=== PATIENT | female | born 1950 | race Caucasian/White ===

== ENCOUNTER 2016-09-25 19:51 | Inpatient (IN) | payer OTHER ==
[~2016-09-25] VITALS: Ht 160 cm; Wt 47.6 kg
[~2016-09-25 19:51] MED LIST: MULT-608 PO
[2016-09-25] MEDS ORDERED: LEVO50TA6 PO (20:28)
[2016-09-25] MEDS ORDERED: HYDR-3812 (20:28)
[2016-09-25] MEDS ORDERED: MIRT15TA6 PO (20:28)
[2016-09-25] MEDS ORDERED: OXYC-471 PO (20:28)
[2016-09-25] MEDS ORDERED: fentaNYL INJECTION 100 MCG/2 ML AMP IVP STA ×2 (20:56→22:24)
[2016-09-25 21:28] LABS: BASOPHILS % (AUTO) 0 % (0-10); EOSINOPHILS # (AUTO) 0.1 10^3/uL (0.0-0.3); EOSINOPHILS % (AUTO) 1 % (0-10); LYMPHOCYTES # (AUTO) 2.2 X 10^3 (1.0-4.0); LYMPHOCYTES % (AUTO) 21 % (12-44); MEAN CORPUSCULAR HEMOGLOBIN 29 PG (25-34); MEAN CORPUSCULAR HGB CONC 32 G/DL (32-36); MEAN CORPUSCULAR VOLUME 90 FL (80-99); MEAN PLATELET VOLUME 9.6 FL (7.4-10.4); MONOCYTES # (AUTO) 1.1 X 10^3 (0.0-1.0); MONOCYTES % (AUTO) 10 % (0-12); NEUTROPHILS # (AUTO) 7.2 X 10^3 (1.8-7.8); NEUTROPHILS % (AUTO) 68 % (42-75); PLATELET COUNT 459 10^3/uL (130-400); RED BLOOD COUNT 3.75 10^6/uL (4.35-5.85); RED CELL DISTRIBUTION WIDTH 13.7 % (10.0-14.5); WHITE BLOOD COUNT 10.6 10^3/uL (4.3-11.0)
[2016-09-25 21:38] LABS: INR 1.1 (0.8-1.4); PROTHROMBIN TIME PATIENT 13.9 SEC (12.2-14.7)
[2016-09-25 21:50] LABS: ALANINE AMINOTRANSFERASE 68 U/L (0-55); ALBUMIN 2.7 GM/DL (3.2-4.5); ANION GAP 12 MMOL/L (5-14); ASPARTATE AMINO TRANSFERASE 57 U/L (5-34); BILIRUBIN,TOTAL 0.2 MG/DL (0.1-1.0); BLOOD UREA NITROGEN 15 MG/DL (7-18); BUN/CREATININE RATIO 23 (0-20); CALCIUM 10.8 MG/DL (8.5-10.1); CARBON DIOXIDE 26 MMOL/L (21-32); CHLORIDE 94 MMOL/L (98-107); CREATININE SERUM 0.65 MG/DL (0.60-1.30); GFR ESTIMATED > 60; GLUCOSE 110 MG/DL (70-105); HEMOLYSIS 1 (-100-29); ICTERUS 0.1 (-100-1.9); LIPEMIA -1 (-100-49); POTASSIUM 3.5 MMOL/L (3.6-5.0); SODIUM 132 MMOL/L (135-145); TOTAL PROTEIN 6.2 GM/DL (6.4-8.2)
--- NOTE | 2016-09-25 22:00 | Diagnostic Imaging Report ---
Indication: Right upper extremity pain. Comparison: Chest radiograph performed concurrently. Technique: 2 views of the right humerus. Findings: There is a pathologic fracture in the mid right humerus due to a permeative lytic lesion. The fracture is oblique in nature and there is slight lateral angulation of the distal fracture fragment. There is an additional focal lytic lesion in the more distal humerus involving the cortex. There is no associated pathologic fracture at this lesion. Impression: 1. Mildly displaced pathologic fracture of the mid right humerus due to underlying destructive osseous lesion. This is likely due to a metastasis from probable lung cancer. Dictated by: Dictated on workstation # [id number]
--- NOTE | 2016-09-25 22:01 | Diagnostic Imaging Report ---
INDICATION: History of breast cancer with chest pain. COMPARISON: None available. FINDINGS: There is a large mass in the left upper lobe measuring 9.5 x 6.0 cm. Small left pleural effusion. No right focal airspace disease. No pneumothorax. Normal heart size. IMPRESSION: 1. Masslike consolidation left upper lobe measures up to 9.5 cm. This likely represents a primary lung cancer. 2. CT chest with contrast is advised for staging. Dictated by: Dictated on workstation # [id number]
[2016-09-25 23:19] VITALS: BP 112/61
[2016-09-25] MEDS ORDERED: ONDANSETRON 4 MG/2 ML (SDV) Z0FRAN IV PRN (23:30)
[2016-09-25] MEDS ORDERED: NS IV 500 ML PCA CARRIER FLUID IV SCH (23:30)
[2016-09-25] MEDS ORDERED: diphenhydrAMINE 50 MG/ML INJ (BENADRYL) IV PRN (23:30)
[2016-09-25] MEDS ORDERED: METOCLOPRAMIDE INJ 10 MG/2 ML (REGLAN) IV PRN (23:30)
[2016-09-25] MEDS ORDERED: NALOXONE 0.4 MG/ML 1 ML (NARCAN) VIAL IV PRN (23:30)
[2016-09-25] MEDS: fentaNYL PCA 300 MCG/30 ML VIAL IV PRN (23:44)
[2016-09-26] VITALS (18 sets, daily range): BP systolic 94–116; BP diastolic 45–72
--- NOTE | 2016-09-26 01:18 | ED General ---
General Chief Complaint: Upper Extremity Stated Complaint: METASTATIC CANCER,LT LUNG MASS Nursing Triage Note: RIGHT UPPER ARM PAIN PT REPORTS MASS IN RIGHT UPPER ARM DX AT [facility]. Nursing Sepsis Screen: No Definite Risk Source of Information: Patient (GIVES MINIMAL INFORMATION), Family (2 FEMALES IN ROOM DO ALL TALKING FOR PT) History of Present Illness Time Seen by Provider: 20:37 Initial Comments MULTITUDE OF COMPLAINTS--SOME ONGOING, SOME RECENT PT'S MAIN COMPLAINT IS RIGHT ARM PAIN AND SWELLING PT ACTUALLY STATES HER RIGHT UPPER ARM HAS BEEN HURTING FOR AT LEAST 6 MONTHS-- THOUGHT WAS JUST MUSCLE STRAIN FROM HER WORK HAS BECOME MUCH MORE PAINFUL THE LAST WEEK AND ON Sunday09/21/16, SHE WAS GETTING OUT OF THE SHOWER/TUB AND "FELT SOMETHING POP" IN HER ARM. SINCE THEN PAIN HAS BECOME SEVERE. WAS SEEN BY HER PCP, DR. Lindsay OSBORNE ON SUNDAY AND HAD XRAY OF HER ARM DONE AND WAS TOLD SHE HAD A "MASS" ON HER ARM. PT WAS GIVEN RX FOR HYDROCODONE--NO RELIEF OF PAIN. CALLED HER DR TODAY AND RX FOR OXYCODONE WAS CALLED IN--STILL NO RELIEF OF PAIN PT PLACED HERSELF IN A SLING DUE TO PAIN WHOLE RIGHT ARM HAS BEEN SWELLING IF SHE RAISES HER ARM, THE WHOLE ARM STARTS TO FEEL TINGLY, BUT OTHERWISE DOES NOT HAVE ANY PARESTHESIAS, AND DOES NOT HAVE ANY MOTOR DEFICITS, JUST CAN'T MOVE IT DUE TO SEVERE PAIN. FAMILY THEN GO ON TO LIST A MULTITUDE OF OTHER COMPLAINTS, THAT HAVE BEEN ONGOING FOR QUITE SOME TIME THEY ALSO STATE THAT PT WAS DX WITH PNEUMONIA 08/31/16--STATES COUGH IS CHRONIC BUT GETTING WORSE AND IS OCCASIONALLY PRODUCTIVE OF COLORED SPUTUM. HAS HAD INCREASING SHORTNESS OF BREATH. NO RECENT FEVER/SWEATS/CHILLS NO CHEST PAIN PT HAD BREAST CANCER, DX 6 YEARS AGO. HAD BILATERAL MASTECTOMY, CHEMO AND RADIATION. HAS NOT FOLLOWED UP WITH DR. ALCARAZ IN OVER 6 MONTHS PCP: FT. SULEMAN RICK ONCOLOGY: DR. ALCARAZ Allergies and Home Medications Allergies Coded Allergies: No Known Drug Allergies (Unverified , 10/05/09) Home Medications Hydrocodone/Acetaminophen 1 Each Tablet, #60 (Reported) Levothyroxine Sodium 50 Mcg Tablet, #30 (Reported) Mirtazapine 15 Mg Tablet, #30 (Reported) Multivitamins 1 Tab Tablet, 1 TAB PO DAILY, (Reported) Oxycodone HCl/Acetaminophen 1 Each Tablet, #180 (Reported) Constitutional: No chills, No diaphoresis, dizziness, malaise, weakness, weight loss (UNKNOWN AMOUNT OVER UNKNOWN LENGTH OF TIME. ) EENTM: no symptoms reported Respiratory: see HPI, cough, dyspnea on exertion Cardiovascular: no symptoms reported, No chest pain, No edema, No palpitations , No syncope, No vascular heart diseas Gastrointestinal: No abdominal pain, constipation (NO BM FOR "A LONG TIME" ), No diarrhea, loss of appetite, No nausea, No vomiting Genitourinary: no symptoms reported Musculoskeletal: see HPI, back pain, other (RIGHT ARM PAIN AND SWELLING) Psychiatric/Neurological: See HPI, Denies Headache, Other ("NOT HERSELF MENTALLY") Hematologic/Lymphatic: No Symptoms Reported Immunological/Allergic: no symptoms reported Past Qnutrbr-Tpwecd-Flmvbn Hx Patient Social History Alcohol Use: Occasionally Uses (HISTORY OF DAILY USE--"3-4 BEERS A DAY", NOW ONLY "OCCASIONAL" USE. ) Recreational Drug Use: No Smoking Status: Current Everyday Smoker (SMOKED AT LEAST 1 PPD --CLAIMS SHE QUIT 2 MONTHS AGO, PER PT ON 09/25/16) Type Used: Cigarettes 2nd Hand Smoke Exposure: Yes Recent Foreign Travel: No Contact w/Someone Who Travel: No Recent Infectious Disease Expo: No Recent Hopitalizations: No Physical Abuse Screen: No Sexual Abuse: No Immunizations Up To Date Tetanus Booster (TDap): Unknown PED Vaccines UTD: No Seasonal Allergies Seasonal Allergies: No Surgeries HX Surgeries: Yes (BILATERAL MASTECTOMY; LEFT TOE REMOVAL) Surgeries: Appendectomy, Breast, Orthopedic Respiratory Hx Respiratory Disorders: Yes Respiratory Disorders: Pneumonia, COPD Cardiovascular Hx Cardiac Disorders: No Neurological Hx Neurological Disorders: No 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 System : No Hx 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 Disorders: No 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 Genitourinary Hx Genitourinary Disorders: No Gastrointestinal Hx Gastrointestinal Disorders: Yes Gastrointestinal Disorders: Gastroesophageal Reflux Musculoskeletal Hx Musculoskeletal Disorders: Yes (COMPRESSION FRACTURES) Musculoskeletal Disorders: Chronic Back Pain, Fractures Endocrine Hx Endocrine Disorders: Yes Endocrine Disorders: Hypothyroidsim HEENT HX ENT Disorders: Yes Cancer Hx Cancer: Yes (BREAST CANCER DX 2009--S/P BILATERAL MASTECTOMY, CHEMO AND RADIATION) Cancer: Breast Psychosocial Hx Psychiatric Problems: No Integumentary HX Skin/Integumentary Disorder: No Blood Transfusions Hx Blood Disorders: No Family Medical History Family Medial History: FH: brain cancer G8 BROTHER G8 SISTER FH: liver cancer G8 SISTER FH: lung cancer 19 FATHER 19 MOTHER G8 BROTHER FH: skin cancer Physical Exam Vital Signs Vital Sign - Last 12Hours 09/25/16 09/26/16 20:29 00:46 Temp 97.9 Pulse 110 Resp 20 B/P (MAP) 128/82 Pulse Ox 95 O2 Delivery Room Air O2 Flow Rate 2.00 Capillary Refill : Less Than 3 SecondsLess Than 3 Seconds General Appearance: No Apparent Distress, Chronically ill, Cachetic, Other ( REEKS OF CIGARETTES. ) Neck: Full Range of Motion, Normal Inspection, Non Tender, Supple Respiratory: No Accessory Muscle Use, No Respiratory Distress, Decreased Breath Sounds (ON LEFT) Cardiovascular: Regular Rate, Rhythm, No Murmur, Normal Peripheral Pulses Gastrointestinal: Non Tender, Soft Back: No CVA Tenderness, No Vertebral Tenderness Extremity: Other (SEVERE/MARKEDLY EXAGGERATED TENDERNESS TO ENTIRE RIGHT ARM, AND YELLS WITH PAIN WITH SLIGHTEST MOVEMENT OF ARM. HAS SWOLLEN/FIRM AREA TO MID RIGHT HUMERUS, WITH MODERATE SWELLING TO ARM DISTAL TO MID HUMERUS. --PT IS WEARING A SLING ON ARRIVAL WITH HAND IN DEPENDENT POSITION. RING TO RIGHT 5TH FINGER IS VERY TIGHT. FINGER HAS GOOD CAP REFILL. AND ALL EXTREMITIES WITH DISTAL MOTOR/SENSRORY/VASCULAR INTACT. ) Neurologic/Psychiatric: Alert, Oriented x3, No Motor/Sensory Deficits, reservations specialist II- XII Norm as Tested, Other (FLAT AFFECT. ) Skin: Warm/Dry, Pallor Splinting and Joint Reduction : Arm Sling: Reliance Splint Application: Long Arm (RIGHT) Progress/Results/Core Measures Results/Orders Lab Results Laboratory Tests Test 09/25/16 21:15 Range/Units White Blood Count 10.6 4.3-11.0 10^3/uL Red Blood Count 3.75 L 4.35-5.85 10^6/uL Hemoglobin 10.9 L 11.5-16.0 G/DL Hematocrit 34 L 35-52 % Mean Corpuscular Volume 90 80-99 FL Mean Corpuscular Hemoglobin 29 25-34 PG Mean Corpuscular Hemoglobin Concent 32 32-36 G/DL Red Cell Distribution Width 13.7 10.0-14.5 % Platelet Count 459 H 130-400 10^3/uL Mean Platelet Volume 9.6 7.4-10.4 FL Neutrophils (%) (Auto) 68 42-75 % Lymphocytes (%) (Auto) 21 12-44 % Monocytes (%) (Auto) 10 0-12 % Eosinophils (%) (Auto) 1 0-10 % Basophils (%) (Auto) 0 0-10 % Neutrophils # (Auto) 7.2 1.8-7.8 X 10^3 Lymphocytes # (Auto) 2.2 1.0-4.0 X 10^3 Monocytes # (Auto) 1.1 H 0.0-1.0 X 10^3 Eosinophils # (Auto) 0.1 0.0-0.3 10^3/uL Basophils # (Auto) 0.0 0.0-0.1 10^3/uL Prothrombin Time 13.9 12.2-14.7 SEC INR Comment 1.1 0.8-1.4 Activated Partial Thromboplast Time 29 24-35 SEC Sodium Level 132 L 135-145 MMOL/L Potassium Level 3.5 L 3.6-5.0 MMOL/L Chloride Level 94 L 98-107 MMOL/L Carbon Dioxide Level 26 21-32 MMOL/L Anion Gap 12 5-14 MMOL/L Blood Urea Nitrogen 15 7-18 MG/DL Creatinine 0.65 0.60-1.30 MG/DL Estimat Glomerular Filtration Rate > 60 BUN/Creatinine Ratio 23 H 0-20 Glucose Level 110 H 70-105 MG/DL Calcium Level 10.8 H 8.5-10.1 MG/DL Total Bilirubin 0.2 0.1-1.0 MG/DL Aspartate Amino Transf (AST/SGOT) 57 H 5-34 U/L Alanine Aminotransferase (ALT/SGPT) 68 H 0-55 U/L Alkaline Phosphatase 148 H 40-136 U/L Total Protein 6.2 L 6.4-8.2 GM/DL Albumin 2.7 L 3.2-4.5 GM/DL My Orders Orders - ANGELA HURLEY DO Saline Lock/Iv-Start (09/25/16 20:56) Cbc With Automated Diff (09/25/16 20:56) Comprehensive Metabolic Panel (09/25/16 20:56) Protime With Inr (09/25/16 20:56) Partial Thromboplastin Time (09/25/16 20:56) Chest Pa/Lat (2 View) (09/25/16 20:56) Humerus, Right, 2 Views (09/25/16 20:56) Fentanyl Injection (Sublimaze Injection (09/25/16 20:56) Fentanyl Injection (Sublimaze Injection (09/25/16 22:24) Splint Application Long Arm (09/25/16 22:24) Sling (09/25/16 22:24) Vital Signs/I&O Vital Sign - Last 12Hours 09/25/16 09/25/16 09/25/16 09/25/16 20:29 21:48 22:56 23:19 Temp 97.9 98.1 97.0 Pulse 110 90 91 93 Resp 20 18 18 20 B/P (MAP) 128/82 122/84 112/61 Pulse Ox 95 97 98 92 O2 Delivery Room Air Room Air Room Air Room Air 09/26/16 09/26/16 00:46 01:03 Pulse Ox 94 O2 Delivery Nasal Cannula O2 Flow Rate 2.00 Blood Pressure Mean: 78 Progress Note : Progress Note PAIN EASED WITH FENTANYL Diagnostic Imaging Comments CXR--LARGE [place] MASS--CONSISTENT WITH PRIMARY LUNG CANCER XRAYS RIGHT HUMERUS--PATHOLOGICAL FRACTURE WITH LYTIC LESIONS TO BONE PER RADIOLOGIST REPORTS @ 2200 Reviewed: Reviewed by Me Departure Communication Family Conversation LENGTHY DISCUSSION WITH PATIENT AND FAMILY, REGARDING DX, PAIN CONTROL, NEED FOR ADDITIONAL TESTING, POOR PROGNOSIS. Progress Notes 2214--SPOKE WITH DR. ALCARAZ, ACCEPTS PT FOR ADMIT. WANTS MULTIPLE CONSULTS-WILL NOTIFY IN AM. 2219--SPOKE WITH DR. NEGRETE ORTHO SALON DESIGNER. HE ADVISES LONG ARM SPLINT AND HE WILL FOLLOW PT IN HOSPITAL. Impression Impression: Primary Impression: Metastatic cancer Additional Impressions: PATHOLOGICAL FRACTURE RIGHT HUMERUS Bone metastasis LEFT LUNG MASS--LIKELY A NEW PRIMARY CANCER Electrolyte imbalance Elevated liver enzymes Disposition: ADMITTED INPATIENT Condition: Improved Departure-Patient Inst. Referrals: BIA OSBORNE MD (PCP) Primary Care Physician ANGELA HURLEY DO Sep 26, 2016 01:18
[2016-09-26] MEDS ORDERED: RT-ALBUTEROL/IPRATROPIUM 3 ML (DUONEB) VIAL INH PRN (02:00)
[2016-09-26 06:12] LABS: BASOPHILS % (AUTO) 0 % (0-10); EOSINOPHILS # (AUTO) 0.1 10^3/uL (0.0-0.3); EOSINOPHILS % (AUTO) 1 % (0-10); LYMPHOCYTES # (AUTO) 1.9 X 10^3 (1.0-4.0); LYMPHOCYTES % (AUTO) 16 % (12-44); MEAN CORPUSCULAR HEMOGLOBIN 29 PG (25-34); MEAN CORPUSCULAR HGB CONC 32 G/DL (32-36); MEAN CORPUSCULAR VOLUME 91 FL (80-99); MEAN PLATELET VOLUME 9.6 FL (7.4-10.4); MONOCYTES # (AUTO) 1.2 X 10^3 (0.0-1.0); MONOCYTES % (AUTO) 10 % (0-12); NEUTROPHILS # (AUTO) 8.4 X 10^3 (1.8-7.8); NEUTROPHILS % (AUTO) 72 % (42-75); PLATELET COUNT 357 10^3/uL (130-400); RED CELL DISTRIBUTION WIDTH 13.6 % (10.0-14.5); WHITE BLOOD COUNT 11.6 10^3/uL (4.3-11.0)
[2016-09-26 06:36] LABS: ALANINE AMINOTRANSFERASE 52 U/L (0-55); ALBUMIN 2.4 GM/DL (3.2-4.5); ANION GAP 11 MMOL/L (5-14); ASPARTATE AMINO TRANSFERASE 40 U/L (5-34); BILIRUBIN,TOTAL 0.3 MG/DL (0.1-1.0); BLOOD UREA NITROGEN 11 MG/DL (7-18); BUN/CREATININE RATIO 20 (0-20); CALCIUM 10.5 MG/DL (8.5-10.1); CARBON DIOXIDE 23 MMOL/L (21-32); CHLORIDE 98 MMOL/L (98-107); CREATININE SERUM 0.54 MG/DL (0.60-1.30); GFR ESTIMATED > 60; GLUCOSE 93 MG/DL (70-105); HEMOLYSIS 9 (-100-29); ICTERUS 0.2 (-100-1.9); LIPEMIA -3 (-100-49); POTASSIUM 3.5 MMOL/L (3.6-5.0); SODIUM 132 MMOL/L (135-145); TOTAL PROTEIN 5.3 GM/DL (6.4-8.2)
[2016-09-26] MEDS: RT-ALBUTEROL/IPRATROPIUM 3 ML (DUONEB) VIAL INH SCH ×4 (07:05→19:51)
[2016-09-26] MEDS: SENNA W/DOCUSATE (SENOKOT S) TABLET PO SCH (09:04)
--- OUTSIDE RECORDS SUMMARY | 2016-09-26 09:32 | XMS REPORT | Continuity of Care Document ---
Author Author [facility] Organization [facility] Address Unknown Phone Unavailable Allergies Active Description Code Type Severity Reaction Onset Reported/Identified Relationship to Patient Clinical Status Yes No Known Drug Allergies [id number] Drug Allergy Unknown N/ A 10/05/2009 Medications Problems Date Dx Coded Attending Type Code Diagnosis Diagnosed By 10/16/2010 Ot 174.9 MALIGN NEOPL BREAST NOS 02/01/2011 Ot 174.9 MALIGN NEOPL BREAST NOS 02/01/2011 Ot 305.01 ALCOHOL ABUSE-CONTINUOUS 02/01/2011 Ot 305.1 TOBACCO USE DISORDER 02/01/2011 Ot 790.5 ABN SERUM ENZY LEVEL NEC 02/01/2011 Ot V45.71 ACQUIRED ABSENCE OF BREAST AND NIPPLE 02/01/2011 Ot V58.69 OTH MED,LT,CURRENT USE 02/01/2011 Ot V86.0 ESTROGEN RECEPTOR POSITIVE STATUS [ER+] 06/07/2011 Ot 174.9 MALIGN NEOPL BREAST NOS 06/07/2011 Ot 305.01 ALCOHOL ABUSE-CONTINUOUS 06/07/2011 Ot 305.1 TOBACCO USE DISORDER 06/07/2011 Ot 790.5 ABN SERUM ENZY LEVEL NEC 06/07/2011 Ot V45.71 ACQUIRED ABSENCE OF BREAST AND NIPPLE 06/07/2011 Ot V58.69 OTH MED,LT,CURRENT USE 06/07/2011 Ot V86.0 ESTROGEN RECEPTOR POSITIVE STATUS [ER+] 09/06/2011 Ot 174.9 MALIGN NEOPL BREAST NOS 09/06/2011 Ot 305.01 ALCOHOL ABUSE-CONTINUOUS 09/06/2011 Ot 305.1 TOBACCO USE DISORDER 09/06/2011 Ot 790.5 ABN SERUM ENZY LEVEL NEC 09/06/2011 Ot V45.71 ACQUIRED ABSENCE OF BREAST AND NIPPLE 09/06/2011 Ot V58.69 OTH MED,LT,CURRENT USE 09/06/2011 Ot V86.0 ESTROGEN RECEPTOR POSITIVE STATUS [ER+] 02/16/2014 HANDY ALCARAZ MD Ot 174.9 02/16/2014 HANDY ALCARAZ MD Ot 305.1 02/16/2014 LISSA REAGAN, HANDY Nava Ot 443.9 02/16/2014 LISSA REAGAN, HANDY Nava Ot 790.5 02/16/2014 LISSA REAGAN, HANDY Nava Ot V15.3 02/16/2014 LISSA REAGAN, HANDY Nava Ot V45.71 02/16/2014 LISSA REAGAN, HANDY Nava Ot V58.69 02/16/2014 LISSA REAGAN, HANDY Nava Ot V86.0 02/16/2014 LISSA REAGAN, HANDY Nava Ot V87.41 03/02/2015 LISSA REAGAN, HANDY Nava Ot C50.912 03/02/2015 LISSA REAGAN, HANDY Nava Ot F10.21 03/02/2015 LISSA REAGAN, HANDY Nava Ot F17.210 03/02/2015 LISSA REAGAN, HANDY Nava Ot I73.9 03/02/2015 LISSA REAGAN, HANDY Nava Ot M19.90 03/02/2015 LISSA REAGAN, HANDY Nava Ot Z17.0 03/02/2015 HANDY ALCARAZ MD Ot Z79.811 03/02/2015 HANDY ALCARAZ MD Ot Z90.12 03/02/2015 HANDY ALCARAZ MD Ot Z92.21 03/02/2015 LISSA REAGAN, HANDY Nava Ot Z92.3 08/11/2015 HANDY ALCARAZ MD Ot 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 08/11/2015 LISSA REAGAN, HANDY Nava Ot F17.210 NICOTINE DEPENDENCE, CIGARETTES, UNCOMPL 08/11/2015 HANDY ALCARAZ MD Ot J44.9 CHRONIC OBSTRUCTIVE PULMONARY DISEASE, U 08/11/2015 LISSA REAGAN, HANDY Nava Ot M19.90 UNSPECIFIED OSTEOARTHRITIS, UNSPECIFIED 08/11/2015 HANDY ALCARAZ MD Ot Z17.0 ESTROGEN RECEPTOR POSITIVE STATUS [ER+] 08/11/2015 HANDY ALCARAZ MD Ot 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 08/11/2015 HANDY ALCARAZ MD Ot Z80.41 FAMILY HISTORY OF MALIGNANT NEOPLASM OF 08/11/2015 HANDY ALCARAZ MD Ot 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 01/13/2016 HANDY ALCARAZ MD Ot 174.9 MALIGN NEOPL BREAST NOS 01/13/2016 HANDY ALCARAZ MD Ot 305.1 TOBACCO USE DISORDER 01/13/2016 HANDY ALCARAZ MD Ot 443.9 PERIPH VASCULAR DIS NOS 01/13/2016 LISSA REAGAN HANDY Brandy Ot 790.5 ABN SERUM ENZY LEVEL NEC 01/13/2016 LISSA REAGAN HANDY Brandy Ot V15.3 HX OF IRRADIATION 01/13/2016 LISSA REAGAN HANDY Brandy Ot V45.71 ACQUIRED ABSENCE OF BREAST AND NIPPLE 01/13/2016 LISSA REAGAN HANDY Brandy Ot V58.69 OTH MED,LT,CURRENT USE 01/13/2016 LISSA REAGAN HANDY Brandy Ot V86.0 ESTROGEN RECEPTOR POSITIVE STATUS [ER+] 01/13/2016 LISSA REAGAN HANDY Brandy Ot V87.41 PERSONAL HISTORY OF ANTINEOPLASTIC CHEMO 01/13/2016 Ot 174.9 MALIGN NEOPL BREAST NOS 01/13/2016 Ot 174.9 MALIGN NEOPL BREAST NOS 01/13/2016 Ot 305.01 ALCOHOL ABUSE-CONTINUOUS 01/13/2016 Ot 305.1 TOBACCO USE DISORDER 01/13/2016 Ot 790.5 ABN SERUM ENZY LEVEL NEC 01/13/2016 Ot V45.71 ACQUIRED ABSENCE OF BREAST AND NIPPLE 01/13/2016 Ot V58.69 OTH MED,LT,CURRENT USE 01/13/2016 Ot V86.0 ESTROGEN RECEPTOR POSITIVE STATUS [ER+] 01/13/2016 Ot 174.9 MALIGN NEOPL BREAST NOS 01/13/2016 Ot 305.1 TOBACCO USE DISORDER 01/13/2016 Ot 443.9 PERIPH VASCULAR DIS NOS 01/13/2016 Ot 729.5 PAIN IN LIMB 01/13/2016 Ot 790.5 ABN SERUM ENZY LEVEL NEC 01/13/2016 Ot V45.71 ACQUIRED ABSENCE OF BREAST AND NIPPLE 01/13/2016 Ot V58.69 OTH MED,LT,CURRENT USE 01/13/2016 Ot V86.0 ESTROGEN RECEPTOR POSITIVE STATUS [ER+] 01/13/2016 Ot 174.9 MALIGN NEOPL BREAST NOS 01/13/2016 Ot 305.01 ALCOHOL ABUSE-CONTINUOUS 01/13/2016 Ot 305.1 TOBACCO USE DISORDER 01/13/2016 Ot 443.9 PERIPH VASCULAR DIS NOS 01/13/2016 Ot 790.5 ABN SERUM ENZY LEVEL NEC 01/13/2016 Ot V45.71 ACQUIRED ABSENCE OF BREAST AND NIPPLE 01/13/2016 Ot V58.69 OTH MED,LT,CURRENT USE 01/13/2016 Ot V86.0 ESTROGEN RECEPTOR POSITIVE STATUS [ER+] 01/13/2016 HANDY ALCARAZ MD Ot 174.9 MALIGN NEOPL BREAST NOS 01/13/2016 HANDY ALCARAZ MD Ot 305.1 TOBACCO USE DISORDER 01/13/2016 HANDY ALCARAZ MD Ot 443.9 PERIPH VASCULAR DIS NOS 01/13/2016 HANDY ALCARAZ MD Ot 790.5 ABN SERUM ENZY LEVEL NEC 01/13/2016 HANDY ALCARAZ MD Ot V15.3 HX OF IRRADIATION 01/13/2016 HANDY ALCARAZ MD Ot V45.71 ACQUIRED ABSENCE OF BREAST AND NIPPLE 01/13/2016 HANDY ALCARAZ MD, Ot V58.69 OTH MED,LT,CURRENT USE 01/13/2016 HANDY ALCARAZ MD Ot V86.0 ESTROGEN RECEPTOR POSITIVE STATUS [ER+] 01/13/2016 HANDY ALCARAZ MD Ot V87.41 PERSONAL HISTORY OF ANTINEOPLASTIC CHEMO 01/13/2016 HANDY ALCARAZ MD Ot 174.9 MALIGN NEOPL BREAST NOS 01/13/2016 HANDY ALCARAZ MD Ot 305.01 ALCOHOL ABUSE-CONTINUOUS 01/13/2016 HANDY ALCARAZ MD Ot 305.1 TOBACCO USE DISORDER 01/13/2016 HANDY ALCARAZ MD Ot 443.9 PERIPH VASCULAR DIS NOS 01/13/2016 HANDY ALCARAZ MD Ot 729.5 PAIN IN LIMB 01/13/2016 HANDY ALCARAZ MD Ot 790.5 ABN SERUM ENZY LEVEL NEC 01/13/2016 HANDY ALCARAZ MD Ot V15.3 HX OF IRRADIATION 01/13/2016 HANDY ALCARAZ MD Ot V45.71 ACQUIRED ABSENCE OF BREAST AND NIPPLE 01/13/2016 HANDY ALCARAZ MD, Ot V58.69 OTH MED,LT,CURRENT USE 01/13/2016 HANDY ALCARAZ MD Ot V86.0 ESTROGEN RECEPTOR POSITIVE STATUS [ER+] 01/13/2016 HANDY ALCARAZ MD Ot V87.41 PERSONAL HISTORY OF ANTINEOPLASTIC CHEMO 01/13/2016 HANDY ALCARAZ MD Ot 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 01/13/2016 HANDY ALCARAZ MD Ot F10.21 ALCOHOL DEPENDENCE, IN REMISSION 01/13/2016 HANDY ALCARAZ MD Ot F17.210 NICOTINE DEPENDENCE, CIGARETTES, UNCOMPL 01/13/2016 HANDY ALCARAZ MD Ot I73.9 PERIPHERAL VASCULAR DISEASE, UNSPECIFIED 01/13/2016 HANDY ALCARAZ MD Ot M19.90 UNSPECIFIED OSTEOARTHRITIS, UNSPECIFIED 01/13/2016 HANDY ALCARAZ MD, Ot Z17.0 ESTROGEN RECEPTOR POSITIVE STATUS [ER+] 01/13/2016 HANDY ALCARAZ MD, Ot Z79.811 GROUP HOME (CURRENT) USE OF AROMATASE INH 01/13/2016 HANDY ALCARAZ MD, Ot Z90.12 ACQUIRED ABSENCE OF LEFT BREAST AND NIPP 01/13/2016 HANDY ALCARAZ MD, Ot Z92.21 PERSONAL HISTORY OF ANTINEOPLASTIC CHEMO 01/13/2016 HANDY ALCARAZ MD, Ot Z92.3 PERSONAL HISTORY OF IRRADIATION 01/13/2016 HANDY ALCARAZ MD, Ot 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 01/13/2016 HANDY ALCARAZ MD, Ot F17.210 NICOTINE DEPENDENCE, CIGARETTES, UNCOMPL 01/13/2016 HANDY ALCARAZ MD, Ot J44.9 CHRONIC OBSTRUCTIVE PULMONARY DISEASE, U 01/13/2016 HANDY ALCARAZ MD, Ot M19.90 UNSPECIFIED OSTEOARTHRITIS, UNSPECIFIED 01/13/2016 HANDY ALCARAZ MD, Ot Z17.0 ESTROGEN RECEPTOR POSITIVE STATUS [ER+] 01/13/2016 HANDY ALCARAZ MD, Ot 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 01/13/2016 HANDY ALCARAZ MD, Ot Z80.41 FAMILY HISTORY OF MALIGNANT NEOPLASM OF 01/13/2016 HANDY ALCARAZ MD, Ot 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 01/14/2016 HANDY ALCARAZ MD, Ot 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 Visit Date/Time Discharge Status Pt. Type Provider Facility Loc./Unit Complaint [id number] 01/26/2015 15:05:00 2014 23:59:59 CLS Outpatient HANDY ALCARAZ MD [facility] ONC [id number] 01/20/2014 15:20:00 2013 23:59:59 HANDY Noguera MD [facility] ONC [id number] 07/22/2013 15:02:00 2013 23:59:59 HANDY Noguera MD [facility] ONC [id number] 01/21/2013 14:49:00 2012 23:59:59 HANDY Noguera MD [facility] ONC [id number] 01/13/2016 15:00:00 HANDY Lopez MD [facility] ONC [id number] 01/13/2016 15:00:00 Document Registration [id number] 07/15/2015 14:26:00 HANDY Lopez MD [facility] ONC [id number] 07/04/2012 14:57:00 Document Registration [id number] 03/07/2012 14:54:00 Document Registration [id number] 10/12/2011 13:32:00 Document Registration [id number] 06/08/2011 15:01:00 Document Registration [id number] 03/09/2011 14:43:00 Document Registration [id number] 01/05/2011 13:17:00 Document Registration [id number] 08/04/2010 14:45:00 Document Registration [id number] 07/28/2010 16:26:00 Document Registration
--- OUTSIDE RECORDS SUMMARY | 2016-09-26 09:41 | XMS REPORT | Continuity of Care Document ---
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 Visit Date/Time Discharge Status Pt. Type Provider Facility Loc./Unit Complaint [id number] 01/26/2015 15:05:00 2014 23:59:59 CLS Outpatient HANDY ALCARAZ MD [facility] ONC [id number] 01/20/2014 15:20:00 2013 23:59:59 HANDY Noguera MD [facility] ONC [id number] 07/22/2013 15:02:00 2013 23:59:59 HANDY Noguera MD [facility] ONC [id number] 01/21/2013 14:49:00 2012 23:59:59 HANDY Noguera MD [facility] ONC [id number] 01/13/2016 15:00:00 HANDY Lopez MD [facility] ONC [id number] 01/13/2016 15:00:00 Document Registration [id number] 07/15/2015 14:26:00 HANDY Lopez MD [facility] ONC [id number] 07/04/2012 14:57:00 Document Registration [id number] 03/07/2012 14:54:00 Document Registration [id number] 10/12/2011 13:32:00 Document Registration [id number] 06/08/2011 15:01:00 Document Registration [id number] 03/09/2011 14:43:00 Document Registration [id number] 01/05/2011 13:17:00 Document Registration [id number] 08/04/2010 14:45:00 Document Registration [id number] 07/28/2010 16:26:00 Document Registration
[2016-09-26] MEDS ORDERED: fentaNYL INJECTION 100 MCG/2 ML AMP IVP PRN (10:00)
[2016-09-26] MEDS ORDERED: MILK OF MAGNESIA 400 MG/5 ML 30 ML UDC PO PRN (10:00)
[2016-09-26] MEDS ORDERED: LIDOCAINE 1% INJ 20 ML (XYLOCAINE) VIAL INJ ONE (10:00)
[2016-09-26] MEDS ORDERED: BISACODYL 10 MG SUPP (DULCOLAX) PR PRN (10:00)
[2016-09-26] MEDS ORDERED: NS 100 ML (IVPB) BAG IV ONE (10:30)
[2016-09-26] MEDS ORDERED: CATHETER FLUSH 10 ML SYR IV PRN (10:30)
[2016-09-26] MEDS ORDERED: IOHEXOL 350 MG/ML 100 ML (OMNIPAQUE 350) VIAL IV ONE (10:30)
--- NOTE | 2016-09-26 12:00 | Pre-Procedure Progress Note ---
Pre-Procedure Progress Note H&P Reviewed The H&P was reviewed, patient examined and no changes noted. Date H&P Reviewed: Sep 26, 2016 Time H&P Reviewed: 10:30 Pre-Procedure Diagnosis: lung mass CT biopsy to be performed. BESS KAUFFMAN MD Sep 26, 2016 12:00
[2016-09-26] MEDS: NS IV 1000 ML 1,000 ML IV SCH ×4 (12:16→22:15)
--- NOTE | 2016-09-26 12:24 | Diagnostic Imaging Report ---
PROCEDURE: CT chest and abdomen with and without contrast TECHNIQUE: Multiple axial CT images through the thorax and abdomen were obtained with and without intravenous contrast. INDICATION: Lung mass. History of breast cancer status post bilateral mastectomy. 100 mL of Omnipaque 350 is administered intravenously. FINDINGS: CT chest: In the left upper lobe, there is a large heterogeneous area of consolidation measuring 6.9 x 5.7 x 8.3 cm. This is obliterating the left upper lobe bronchus, and the left upper lobe pulmonary artery and artery to the lingula are encased by this lesion with suspected component of atelectasis or pneumonia in the left upper lobe along the periphery of this mass. Remaining portions of the left upper lobe anteriorly and in the apex as well as the inferior lingula are still aerated. There is a [id number] left pleural effusion with mild adjacent atelectasis. The lungs demonstrate background advanced emphysema, worse in the upper lobes. There is minimal atelectasis in the right lung base. There are no other pulmonary masses or suspicious nodules seen. The left upper lobe mass is inseparable from the left hilar structures, and another hilar node measuring 1.6 cm is seen. There are also subaortic and other mediastinal nodes such as right paratracheal node measuring 3.4 x 1.6 cm and prevascular superior mediastinal node measuring 2.1 x 2.9 cm and contralateral hilar lymph node measuring 1.9 cm on the right side. Infracarinal lymph node measuring 1.4 cm is also seen. The heart size is normal. The thoracic aorta is normal in caliber. No dissection. The osseous structures demonstrate a compression fracture of T11 vertebral body of indeterminate age. No destructive osseous mass is identified in the thoracic spine or ribs. CT abdomen: The liver, the gallbladder, the spleen, the adrenal glands, and the pancreas appear unremarkable. The kidneys have symmetric enhancement and contrast excretion. No hydronephrosis. There are nonobstructive stones in the kidneys up to 3 mm in size near the renal pelvis. The abdominal aorta is normal in caliber. No para-aortic significantly enlarged lymph node is seen. The osseous structures appear grossly unremarkable. IMPRESSION: CT chest: 1. There is an 8.3 cm heterogeneous mass-like consolidation in the left upper lobe suggestive of an underlying neoplasm. There is associated lymphadenopathy in the luh and in the mediastinum. 2. Jehck-qp-mzqlsdld left pleural effusion. 3. Advanced emphysema. 4. Compression fracture of T11 vertebral body of indeterminate age. No definite underlying mass. CT abdomen: No evidence of metastasis. Dictated by: Dictated on workstation # [id number]
--- NOTE | 2016-09-26 13:34 | History & Physicial ---
History of Present Illness History of Present Illness Reason for visit/HPI This is a 65-year-old lady with known history of breast cancer who is admitted via the emergency department with complaints of right upper extremity pain. Right arm x-ray done in the emergency department shows pathologic fracture mildly displaced. Chest x-ray should also shows large left upper lobe mass highly suggestive of a second primary lung cancer versus metastasis. Patient also describes worsening back pain since Day (one month duration) that radiates down her right lower extremity. No fever chills or night sweats are reported but patient has had dark malodorous urine for the last 3 to 4 days. Past history is remarkable for: 1. Stage IIIB (T4C involving skin and chest wall, N+,M0) left breast cancer, ER positive, [place] positive, HER-2/susie negative, diagnosed August 2009. Induction chemotherapy given prior to local surgery. 2. Former history chronic excessive alcohol intake. 3. History of chronic tobaccoism. Had smoked at least one pack per day for 32 years prior to stopping 2 months ago. PRIOR THERAPY: 1. Status post four cycles of dose dense Adriamycin and cyclophosphamide followed by four cycles of paclitaxel. 2. Status post bilateral mastectomy, left modified radical mastectomy and right simple mastectomy on 02/15/10. 3. Local radiation left chest wall and regional lymphatics, 6040 cGy, completed 06/09/10. 4. Aromasin 25 mg daily is ongoing. Aromasin was initiated on 07/07/10 and completed 07/16/15. (Patient was offered extended hormonal therapy at her last visit in Jan 2016 but did not want to continue hormonal therapy.) Date of Admission Sep 25, 2016 at 22:15 Time Seen by Provider: 12:15 I consulted on this patient on 09/26/16 13:32 Attending Physician Handy Alcaraz MD Admitting Physician Jacqueline Mendieta MD Consult Allergies and Home Medications Allergies Coded Allergies: No Known Drug Allergies (Unverified , 10/05/09) Home Medications Levothyroxine Sodium 50 Mcg Tablet, 50 MCG PO DAILY, (Reported) Mirtazapine 15 Mg Tablet, 15 MG PO HS, (Reported) Multivitamins 1 Tab Tablet, 1 TAB PO DAILY, (Reported) Oxycodone HCl/Acetaminophen 1 Each Tablet, 1 TAB PO Q4H PRN for PAIN-MODERATE, ( Reported) Past Kmnbuhr-Sikvtl-Alyjwl Hx Patient Social History Alcohol Use: Occasionally Uses (HISTORY OF DAILY USE--"3-4 BEERS A DAY", NOW ONLY "OCCASIONAL" USE. ) Recreational Drug Use: No Smoking Status: Current Everyday Smoker (SMOKED AT LEAST 1 PPD --CLAIMS SHE QUIT 2 MONTHS AGO, PER PT ON 09/25/16) Type Used: Cigarettes 2nd Hand Smoke Exposure: Yes Physical Abuse Screen: No Sexual Abuse: No Recent Foreign Travel: No Contact w/other who traveled: No Recent Hopitalizations: No Recent Infectious Disease Expo: No Immunizations Up To Date Tetanus Booster (TDap): Unknown Seasonal Allergies Seasonal Allergies: No Surgeries HX Surgeries: Yes (BILATERAL MASTECTOMY; LEFT TOE REMOVAL) Surgeries: Appendectomy, Breast, Orthopedic Respiratory Hx Respiratory Disorders: Yes Cardiovascular Hx Cardiovascular Disorders: No Neurological Hx Neurological Disorders: No 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 System : No Hx 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 Disorders: No Genitourinary Hx Genitourinary Disorders: No Gastrointestinal Hx Gastrointestinal Disorders: Yes Gastrointestinal Disorders: Gastroesophageal Reflux Musculoskeletal Hx Musculoskeletal Disorders: Yes (COMPRESSION FRACTURES) Musculoskeletal Disorders: Chronic Back Pain, Fractures Endocrine Hx Endocrine Disorders: Yes Endocrine Disorders: Hypothyroidsim HEENT HX ENT Disorders: Yes Cancer Hx Cancer: Yes (BREAST CANCER DX 2009--S/P BILATERAL MASTECTOMY, CHEMO AND RADIATION) Cancer: Breast Psychosocial Hx Psychiatric Problems: No Integumentary HX Skin/Integumentary Disorder: No Blood Transfusions Hx Blood Disorders: No Family Medical History Family Hx: FH: brain cancer G8 BROTHER G8 SISTER FH: liver cancer G8 SISTER FH: lung cancer 19 FATHER 19 MOTHER G8 BROTHER FH: skin cancer Constitutional: see HPI, other (Constipation and severe Right upper extremity pain) Respiratory: cough, short of breath Cardiovascular: no symptoms reported Gastrointestinal: constipation Genitourinary: other (dark foul smelling urine for several days) Musculoskeletal: see HPI, back pain, other (right arm pain) Physical Exam Vital Signs Vital Sign - Last 12Hours 09/25/16 09/26/16 20:29 00:46 Temp 97.9 Pulse 110 Resp 20 B/P (MAP) 128/82 Pulse Ox 95 O2 Delivery Room Air O2 Flow Rate 2.00 Capillary Refill : Less Than 3 SecondsLess Than 3 Seconds General Appearance: Chronically ill, Thin HEENT: PERRL/EOMI Neck: Normal Inspection, Non Tender, Supple Respiratory: Decreased Breath Sounds (left lung more than right) Cardiovascular: Regular Rate, Rhythm, No Edema Gastrointestinal: Normal Bowel Sounds, No Organomegaly, No Pulsatile Mass, Non Tender, Soft Rectal: Deferred Back: Normal Inspection Extremity: Normal Inspection, Non Tender, No Calf Tenderness, No Pedal Edema Neurologic/Psychiatric: Alert, Oriented x3, Normal Mood/Affect (Gait not tested ;), Motor Weakness (Right arm in sling with known pathologic fracture;) Reflexes: 2+ Bicep (R), 2+ Bicep (L), 2+ Tricep (R), 2+ Tricep (L), 3+ Knee (R) , 3+ Knee (L), 2+ Ankle (R), 2+ Ankle (L) Comments Laboratory Tests 09/25/16 21:15: Red Blood Count 3.75L, Hemoglobin 10.9L, Hematocrit 34L, Platelet Count 459H, Monocytes # (Auto) 1.1H, Sodium Level 132L, Potassium Level 3.5L, Chloride Level 94L, BUN/Creatinine Ratio 23H, Glucose Level 110H, Calcium Level 10.8H, Aspartate Amino Transf (AST/SGOT) 57H, Alanine Aminotransferase (ALT/SGPT) 68H, Alkaline Phosphatase 148H, Total Protein 6.2L, Albumin 2.7L 09/26/16 05:55: Red Blood Count 3.50L, Hemoglobin 10.1L, Hematocrit 32L, Monocytes # (Auto) 1.2H , Sodium Level 132L, Potassium Level 3.5L, Calcium Level 10.5H, Aspartate Amino Transf (AST/SGOT) 40H, Total Protein 5.3L, Albumin 2.4L, White Blood Count 11.6H , Neutrophils # (Auto) 8.4H, Creatinine 0.54L Laboratory Tests 09/25/16 21:15 09/26/16 05:55 RADIOLOGY REVIEW: X-ray right humerus done on 09/25/16: Impression: 1. Mildly displaced pathologic fracture of the mid right humerus due to underlying destructive osseous lesion. This is likely due to a metastasis from probable lung cancer. CAT scan of the chest abdomen and pelvis done in 09/26/16: IMPRESSION: CT chest : 1. There is an 8.3 cm heterogeneous mass-like consolidation in the left upper lobe suggestive of an underlying neoplasm. There is associated lymphadenopathy in the luh and in the mediastinum. 2. Small-to -moderate left pleural effusion. 3. Advanced emphysema. 4. Compression fracture of T11 vertebral body of indeterminate age. No definite underlying mass. CT abdomen: No evidence of metastasis. Assessment/Plan Assessment and Plan ASSESSMENT and PLAN: 1. Right humeral pathologic fracture-bone scan requested. Orthopedics consultation has been requested for assessment and treatment; radiation oncology consultation will follow Orthopedics assessment (and jeannine placement). 2. Uncontrolled cancer pain-fentanyl METABOLIC SPECIALIST has been initiated. We'll cover nausea and narcotic-induced constipation. 3. Back pain radiating down right leg-obtain MRI thoracic or lumbar spine 4. Fever, tachypnea and tachycardia are likely related to above problems of pain, cancer spread with pathologic fracture, and exacerbated by today's lung biopsy; Doubt that her SIRS is due to sepsis, but will culture blood, urine, and sputum and cover with empiric antibiotics; 5. Left Upper Lobe Mass--favor new lung primary versus metastatic breast cancer lesion; CAT scan guided lung mass biopsy performed today and results are pending. 6. History of locally advance breast cancer treated with neoadjuvant chemotherapy and radiation followed by bilateral mastectomy in 2009; Patient presented with 5cm draining breast mass in 2009 with clinically positive axillary lymph nodes. 7. Hypercalcemia, mild--we'll treat with IV hydration and recheck BMP and monitor 8. Hyperkalemia mild-replace potassium and monitor 9. Hyponatremia- we will monitor; cannot exclude SIADH related to lung mass 10. History of Chronic tobaccoism --patient states he quit smoking 2-3 months ago; 11. DVT prophylaxis- Use SCDs only for now since patient is having hemoptysis post lung biopsy and since humeral pinning by Orthopedic surgery is impending; 12. Consult with Hospitalist has been requested for a.m. 09/27/16 for assistance with coverage and medical management; Problems: Clinical Quality Measures DVT/VTE Risk/Contraindication: VTE Present on Admission: No Risk Factor Score Per Nursin RFS Level Per Nursing on Admit: 4+=Very High Contraindications-Pharm: Other *list below* Other: Patient had biopsy of a large left lung mass and is having hemoptysis. She is scheduled to have pinning of a pathologic right humeral fracture in the next day or 2. HANDY ALCARAZ MD Sep 26, 2016 13:34
--- NOTE | 2016-09-26 14:01 | Diagnostic Imaging Report ---
EXAMINATION: CT-guided biopsy-lung. INDICATION: Left lung mass. Current history and physical and other medical records are reviewed prior to the procedure. CONSENT: Informed consent was obtained from the patient. The risks, benefits, potential complications and alternatives were reviewed and all questions answered to the patient's satisfaction. The patient's vital signs, cardiac rhythm, and pulse oximetry were observed throughout the procedure by qualified nursing personnel. Sedation/medications: none. FINDINGS: Left upper lobe lung mass. PROCEDURE: After maximal sterile barrier technique preparation and draping, 1% lidocaine was utilized for local anesthesia. With the patient in supine position, and via anterior lateral intercostal approach, a 19-gauge guide needle is introduced into the left upper lobe lung mass under CT scan guidance. After confirming adequate positioning with saved CT images, multiple 20 gauge core biopsy specimens were obtained. The patient tolerated the procedure well with no immediate complications. IMPRESSION: Successful CT-guided biopsy of left upper lobe lung mass. Dictated by: Dictated on workstation # [id number]
[2016-09-26] MEDS: POLYETHYLENE GLYCOL 17 GM (MIRALAX) PACK PO PRN (14:30)
--- NOTE | 2016-09-26 15:03 | Diagnostic Imaging Report ---
EXAMINATION: Expiratory portable upright radiograph of the chest. INDICATION: Left upper lobe lung mass. COMPARISON: 09/05/2016. FINDINGS: There is increased consolidation around the left upper lobe mass and previously seen consolidation suggestive of increased atelectasis, infiltrates, or small hemorrhage after the lung biopsy. There is no pneumothorax. There is a small left pleural effusion. The right lung is hyperinflated and clear. The heart size is normal. IMPRESSION: Left upper lobe lung mass with increasing associated consolidation and atelectasis. Small left effusion. Dictated by: Dictated on workstation # [id number]
[2016-09-26] MEDS ORDERED: GADOBUTROL 7.5 MMOL/7.5 ML (GADAVIST) VIAL IV ONE (17:45)
--- NOTE | 2016-09-26 18:26 | Diagnostic Imaging Report ---
INDICATION: Back pain. Further evaluation of compression fracture. COMPARISON: CT chest, abdomen and pelvis performed earlier same day. TECHNIQUE: Multiplanar, multisequence MR imaging of the thoracic spine was performed without and with IV contrast. FINDINGS: There is a subacute to chronic fracture of the inferior endplate of T11, with less than 25% of vertebral body height loss. There is no retropulsed ossific fragments into the spinal canal. On T1-weighted imaging, there is subtle T1 hypointense marrow replacement of the superior one half of the vertebral body which is out of proportion to a simple osteoporotic compression fracture. Postcontrast imaging demonstrates diffuse enhancement of the vertebral body. Findings are suggestive of underlying infiltrative neoplastic lesion within the T11 vertebral body. There is minimal disc bulging at T11-T12 which results in partial effacement of ventral thecal sac without significant spinal stenosis. No foci of foraminal narrowing in the thoracic spine. No additional foci of T1 hypointense marrow placement or an abnormal masslike enhancement in the thoracic spine. Specifically, there is no abnormal enhancement within the spinal canal or thoracic cord. Please see CT chest report for details of left upper lobe lung mass and left-sided pleural effusion. IMPRESSION: 1. Subacute mild inferior endplate compression fracture of T11 has imaging features that are suspicious for pathologic fracture with potential underlying neoplastic process of the vertebra. However, there is no cortical breakthrough of potential underlying neoplastic process. 2. No soft tissue metastases within the thoracic spine. 3. Normal thoracic cord. Dictated by: Dictated on workstation # [id number]
--- NOTE | 2016-09-26 18:35 | Diagnostic Imaging Report ---
PROCEDURE: MRI lumbar spine with and without contrast. TECHNIQUE: Multiplanar, multisequence MRI of the lumbar spine was performed with and without contrast. INDICATION: Back pain radiating down legs. COMPARISON: Thoracic spine MRI performed concurrently. FINDINGS: There is an acute to subacute inferior endplate compression fracture of L5 which has a linear band-like T1 hypointensity just along the inferior endplate. There is no associated replacement of the vertebral body. There is associated mild enhancement at the level of the fracture, which is compatible with granulation tissue. In the superior endplate of L4, there is a T1 hypointense focus which demonstrates mild enhancement. This occupies less than one-third of the superior endplate surface. There is no associated compression fracture. No additional compression fractures in the lumbar spine. There is no marrow replacing process within the lumbar spine. Postcontrast imaging demonstrates no mass-like enhancement within the osseous structures or soft tissues around the lumbar spine. Intervertebral disc spaces are well preserved. There are no disc bulges or herniations throughout the lumbar spine. There are no foci of spinal stenosis. The conus terminates at an appropriate level and there is no clumping of the intrathecal nerve roots. Please see CT chest, abdominal and pelvis report for details of the visualized abdomen and chest. IMPRESSION: 1. Please see thoracic spine MRI report for details of the T11 compression fracture. 2. There is acute to subacute inferior endplate compression fracture of L1. However, the vertebral body does not have imaging characteristics that would suggest underlying neoplastic lesion to indicate a pathologic fracture. 3. Within the superior endplate of L4, there is likely a subacute developing Schmorl's node. However, osseous metastasis at this level would be difficult to exclude, especially given patient's known metastasis to the humerus. 4. No high-grade spinal stenosis or foraminal narrowing in the lumbar spine. Dictated by: Dictated on workstation # [id number]
[2016-09-26] MEDS: POTASSIUM CL 10MEQ/50ML IVPB 50 ML IV SCH ×2 (19:53→21:07)
[2016-09-26] MEDS: LEVOFLOXACIN 250 MG/50 ML IVPB 50 ML IV SCH (20:18)
[2016-09-26] MEDS: CEFEPIME INJECTION 2,000 MG in NS (IVPB) 50 ML IV SCH (22:17)
[2016-09-26 22:43] LABS: ANION GAP 8 MMOL/L (5-14); BLOOD UREA NITROGEN 9 MG/DL (7-18); BUN/CREATININE RATIO 16; CARBON DIOXIDE 23 MMOL/L (21-32); CHLORIDE 101 MMOL/L (98-107); CREATININE SERUM 0.56 MG/DL (0.60-1.30); GFR ESTIMATED > 60; GLUCOSE 119 MG/DL (70-105); POTASSIUM 3.6 MMOL/L (3.6-5.0); SODIUM 132 MMOL/L (135-145)
[2016-09-27] MEDS: NS IV 1000 ML 1,000 ML IV SCH ×4 (00:42→10:16)
[2016-09-27 03:45] VITALS: BP 109/55
[2016-09-27 06:33] LABS: BASOPHILS % (AUTO) 0 % (0-10); EOSINOPHILS # (AUTO) 0.1 10^3/uL (0.0-0.3); EOSINOPHILS % (AUTO) 1 % (0-10); LYMPHOCYTES # (AUTO) 2.3 X 10^3 (1.0-4.0); LYMPHOCYTES % (AUTO) 17 % (12-44); MEAN CORPUSCULAR HEMOGLOBIN 29 PG (25-34); MEAN CORPUSCULAR HGB CONC 31 G/DL (32-36); MEAN CORPUSCULAR VOLUME 92 FL (80-99); MEAN PLATELET VOLUME 9.8 FL (7.4-10.4); MONOCYTES # (AUTO) 1.2 X 10^3 (0.0-1.0); MONOCYTES % (AUTO) 9 % (0-12); NEUTROPHILS # (AUTO) 9.7 X 10^3 (1.8-7.8); NEUTROPHILS % (AUTO) 73 % (42-75); PLATELET COUNT 402 10^3/uL (130-400); RED BLOOD COUNT 2.91 10^6/uL (4.35-5.85); RED CELL DISTRIBUTION WIDTH 13.6 % (10.0-14.5); WHITE BLOOD COUNT 13.2 10^3/uL (4.3-11.0)
[2016-09-27] MEDS: RT-ALBUTEROL/IPRATROPIUM 3 ML (DUONEB) VIAL INH SCH ×4 (06:47→19:20)
[2016-09-27 07:10] LABS: ANION GAP 8 MMOL/L (5-14); BLOOD UREA NITROGEN 8 MG/DL (7-18); BUN/CREATININE RATIO 16; CARBON DIOXIDE 22 MMOL/L (21-32); CHLORIDE 104 MMOL/L (98-107); CREATININE SERUM 0.51 MG/DL (0.60-1.30); GFR ESTIMATED > 60; GLUCOSE 86 MG/DL (70-105); POTASSIUM 3.5 MMOL/L (3.6-5.0); SODIUM 134 MMOL/L (135-145)
[2016-09-27 08:00] VITALS: BP 120/65
[2016-09-27] MEDS: LEVOFLOXACIN 250 MG/50 ML IVPB 50 ML IV SCH (08:03)
[2016-09-27] MEDS: CEFEPIME INJECTION 2,000 MG in NS (IVPB) 50 ML IV SCH ×2 (08:03→20:56)
[2016-09-27] MEDS: SENNA W/DOCUSATE (SENOKOT S) TABLET PO SCH (08:03)
--- NOTE | 2016-09-27 08:20 | Diagnostic Imaging Report ---
Portable upright radiograph of the chest. INDICATION: Lung mass and fever. FINDINGS: There is near-complete opacification of the left lung seen at this time with mediastinal shift to the left compatible with large component of atelectasis. There is a known left upper lobe mass. The right lung is hyperexpanded with interstitial thickening with no focal infiltrates. There is probably small left pleural effusion. No right effusion. No pneumothorax. IMPRESSION: Complete opacification of the left lung related to increasing atelectasis on top of left upper lobe mass and small effusion. Mucous plug in the left bronchial tree is possible. Dictated by: Dictated on workstation # [id number]
[2016-09-27] MEDS: fentaNYL PCA 300 MCG/30 ML VIAL IV PRN (10:46)
--- NOTE | 2016-09-27 10:52 | Progress Note (SOAP) ---
Subjective Date Seen by Provider: Sep 27, 2016 Time Seen by Provider: 10:30 Subjective/Events-last exam Patient continues to complain of right upper extremity pain; Pain in back is relieved with current pain medications; Patient states that she does not want to be resuscitated in the event of cardiorespiratory arrest. We will honor her wishes and change her code status to DNR. Her constipation was relieved with laxatives. Calcium and hemoglobin have dropped with IV hydration. She continues to have a small amount of hemoptysis. Objective Exam Vital Signs Date Time Temp Pulse Resp B/P (MAP) Pulse Ox O2 Delivery O2 Flow Rate FiO2 09/27/16 08:00 92 Nasal Cannula 5.00 09/27/16 08:00 98.6 118 33 120/65 92 Nasal Cannula 5.00 09/27/16 06:47 98 Nasal Cannula 5.00 09/27/16 03:45 98.8 102 32 109/55 93 Nasal Cannula 5.00 09/27/16 02:00 92 Nasal Cannula 5.00 09/26/16 23:50 98.9 108 30 113/55 93 Nasal Cannula 5.00 09/26/16 21:57 93 Nasal Cannula 5.00 09/26/16 20:15 Nasal Cannula 5.00 09/26/16 19:20 99.7 112 36 116/56 94 Nasal Cannula 2.00 09/26/16 19:13 93 Nasal Cannula 5.00 09/26/16 15:40 99.9 118 20 109/71 90 Nasal Cannula 2.00 09/26/16 15:17 99 Nasal Cannula 5.00 09/26/16 14:15 110 20 110/59 95 09/26/16 13:15 100 25 97/45 97 Nasal Cannula 2.00 09/26/16 12:45 109 24 94/53 90 Nasal Cannula 5.00 09/26/16 12:25 98 25 101/65 95 Nasal Cannula 5.00 09/26/16 12:10 105 25 101/66 93 Nasal Cannula 5.00 09/26/16 12:00 100.0 108 32 99/64 93 Nasal Cannula 2.00 I & O 09/27/16 07:00 Intake Total 3016 ml Output Total 900 ml Balance 2116 ml Capillary Refill : Less Than 3 SecondsLess Than 3 Seconds General Appearance: Chronically ill, Thin HEENT: PERRL/EOMI Respiratory: Decreased Breath Sounds (left lung decreased breath sounds;) Gastrointestinal: normal bowel sounds, non tender, soft, no organomegaly, no pulsatile mass Extremity: Other (Right upper extremity tenderness) Results Lab Laboratory Tests 09/25/16 21:15 09/26/16 05:55 09/26/16 22:15 09/27/16 05:34 09/27/16 05:35 Laboratory Tests 09/26/16 22:15: Sodium Level 132L, Potassium Level 3.6, Chloride Level 101, Carbon Dioxide Level 23, Anion Gap 8, Blood Urea Nitrogen 9, Creatinine 0.56L, Estimat Glomerular Filtration Rate > 60, BUN/Creatinine Ratio 16, Glucose Level 119H, Lactic Acid Level 1.13, Calcium Level 10.0 09/27/16 05:34: White Blood Count 13.2H, Red Blood Count 2.91L, Hemoglobin 8.4L, Hematocrit 27L , Mean Corpuscular Volume 92, Mean Corpuscular Hemoglobin 29, Mean Corpuscular Hemoglobin Concent 31L, Red Cell Distribution Width 13.6, Platelet Count 402H, Mean Platelet Volume 9.8, Neutrophils (%) (Auto) 73, Lymphocytes (%) (Auto) 17, Monocytes (%) (Auto) 9, Eosinophils (%) (Auto) 1, Basophils (%) (Auto) 0, Neutrophils # (Auto) 9.7H, Lymphocytes # (Auto) 2.3, Monocytes # (Auto) 1.2H, Eosinophils # (Auto) 0.1, Basophils # (Auto) 0.0 09/27/16 05:35: Sodium Level 134L, Potassium Level 3.5L, Chloride Level 104, Carbon Dioxide Level 22, Anion Gap 8, Blood Urea Nitrogen 8, Creatinine 0.51L, Estimat Glomerular Filtration Rate > 60, BUN/Creatinine Ratio 16, Glucose Level 86, Calcium Level 10.0 Microbiology 09/26/16 Urine Culture - Preliminary, Resulted NO GROWTH Radiology MRI Thoracic Spine done 09/26/16: IMPRESSION: 1. Subacute mild inferior endplate compression fracture of T11 has imaging features that are suspicious for pathologic fracture with potential underlying neoplastic process of the vertebra. However, there is no cortical breakthrough of potential underlying neoplastic process. 2. No soft tissue metastases within the thoracic spine. 3. Normal thoracic cord. MRI Lumbar Spine done 09/26/16: IMPRESSION: 1. Please see thoracic spine MRI report for details of the T11 compression fracture. 2. There is acute to subacute inferior endplate compression fracture of L1. However, the vertebral body does not have imaging characteristics that would suggest underlying neoplastic lesion to indicate a pathologic fracture. 3. Within the superior endplate of L4, there is likely a subacute developing Schmorl's node. However, osseous metastasis at this level would be difficult to exclude, especially given patient's known metastasis to the humerus. 4. No high-grade spinal stenosis or foraminal narrowing in the lumbar spine. Assessment/Plan Assessment/Plan Assess & Plan/Chief Complaint 1. Right humeral pathologic fracture-bone scan requested. Orthopedics consultation has been requested for assessment and treatment; radiation oncology consultation will follow Orthopedics assessment (and jeannine placement). 2. Uncontrolled cancer pain-fentanyl CARD BOXER has been initiated. We'll cover nausea and narcotic-induced constipation. 3. Back pain radiating down right leg-obtain MRI thoracic or lumbar spine MRI Thoracic and Lumbar Spine have been reviewed; T11 compression fracture thought to be metastatic and L1 not metastatic. 4. Fever, tachypnea and tachycardia are likely related to above problems of pain, cancer spread with pathologic fracture, and exacerbated by today's lung biopsy; Doubt that her SIRS is due to sepsis, but will culture blood, urine, and sputum and cover with empiric antibiotics; Lactic acid is not elevated; Continue antibiotics in view of worsening CXR findings representing atelectasis vs infiltrate vs both; 5. Left Upper Lobe Mass--favor new lung primary versus metastatic breast cancer lesion; CAT scan guided lung mass biopsy performed 09/26/16 and results are pending. 6. Anemia/ Drop in hemoglobin- multifactorial related to aggressive IV hydration, anemia of cancer and hemoptysis. 7. History of locally advance breast cancer treated with neoadjuvant chemotherapy and radiation followed by bilateral mastectomy in 2010; Patient presented with 5cm draining breast mass in 2010 with clinically positive axillary lymph nodes. 8. Hypercalcemia, mild--improved with IV hydration 9. Hypokalemia mild-replace potassium and monitor 10. Hyponatremia- we will monitor; cannot exclude SIADH related to lung mass 11. History of Chronic tobaccoism --patient states he quit smoking 2 months ago ; 12. DVT prophylaxis- Use SCDs only for now since patient is having hemoptysis post lung biopsy and since humeral pinning by Orthopedic surgery is impending; 13. Patient has requested code status change to DNR. Clinical Quality Measures DVT/VTE Risk/Contraindication: VTE Present on Admission: No Risk Factor Score Per Nursin RFS Level Per Nursing on Admit: 4+=Very High Contraindications-Pharm: Other *list below* Other: Patient had biopsy of a large left lung mass and is having hemoptysis. She is scheduled to have pinning of a pathologic right humeral fracture in the next day or 2. HANDY ALCARAZ MD Sep 27, 2016 10:52
--- NOTE | 2016-09-27 11:36 | Consultation-Hospitalist ---
HPI History of Present Illness: HPI/Chief Complaint CC: Metastatic cancer, left lung mass HPI: This is a 65 yoWF pt being treated by Dr. Mercedes for left lung mass and metastatic cancer Dr. Mercedes Review: Pt has a huge left lung mass. 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 Pt denies coughing a lot. Pt denies ambulating Physical exam stable Pt has been tolerating her pain Pt has had BMs Pt was informed that Dr. Mercedes is taking care of her, but I will be here over the weekend to continue her care. Scribed by Callie Her under the direct supervision of Dr. Lu. Source: patient Exam Limitations: clinical condition (severe weakness) Date Seen 09/27/16 Attending Physician Irma Mercedes MD PCP Jacqueline Mendieta MD Referring Physician Date of Admission Sep 25, 2016 at 22:15 Home Medications & Allergies Home Medications Reviewed patient Home Medication Reconciliation Form Allergies Allergies Coded Allergies No Known Drug Allergies (Unverified10/05/09) Past Zcoquqw-Fetbtu-Ujoomb Hx Patient Social History Marrital Status: single Employed/Student: unemployed Alcohol Use: Occasionally Uses (HISTORY OF DAILY USE--"3-4 BEERS A DAY", NOW ONLY "OCCASIONAL" USE. ) Recreational Drug Use: No Smoking Status: Current Everyday Smoker (SMOKED AT LEAST 1 PPD --CLAIMS SHE QUIT 2 MONTHS AGO, PER PT ON 09/25/16) Type Used: Cigarettes 2nd Hand Smoke Exposure: Yes Physical Abuse Screen: No Sexual Abuse: No Recent Foreign Travel: No Contact w/other who traveled: No Recent Hopitalizations: No Recent Infectious Disease Expo: No Immunizations Up To Date Tetanus Booster (TDap): Unknown Seasonal Allergies Seasonal Allergies: No Surgeries HX Surgeries: Yes (BILATERAL MASTECTOMY; LEFT TOE REMOVAL) Surgeries: Appendectomy, Breast, Orthopedic Respiratory Hx Respiratory Disorders: Yes Respiratory Disorders: COPD, Pneumonia Cardiovascular Hx Cardiovascular Disorders: No Neurological Hx Neurological Disorders: No 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 System : No Hx 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 Disorders: No Genitourinary Hx Genitourinary Disorders: No Gastrointestinal Hx Gastrointestinal Disorders: Yes Gastrointestinal Disorders: Gastroesophageal Reflux Musculoskeletal Hx Musculoskeletal Disorders: Yes (COMPRESSION FRACTURES) Musculoskeletal Disorders: Chronic Back Pain, Fractures Endocrine Hx Endocrine Disorders: Yes Endocrine Disorders: Hypothyroidsim HEENT HX ENT Disorders: Yes Cancer Hx Cancer: Yes (BREAST CANCER DX 2009--S/P BILATERAL MASTECTOMY, CHEMO AND RADIATION) Cancer: Breast Psychosocial Hx Psychiatric Problems: No Integumentary HX Skin/Integumentary Disorder: No Blood Transfusions Hx Blood Disorders: No Family Medical History Family Hx: FH: brain cancer G8 BROTHER G8 SISTER FH: liver cancer G8 SISTER FH: lung cancer 19 FATHER 19 MOTHER G8 BROTHER FH: skin cancer Review of Systems Date Seen by Provider: Sep 27, 2016 Time Seen by Provider: 09:30 Constitutional: see HPI, weakness EENTM: no symptoms reported Respiratory: dyspnea on exertion, short of breath Cardiovascular: no symptoms reported Gastrointestinal: no symptoms reported Musculoskeletal: no symptoms reported Skin: no symptoms reported Psychiatric/Neurological: Anxiety, Depressed Physical Exam Physical Exam Vital Signs Vital Sign - Last 12Hours 09/25/16 09/26/16 20:29 00:46 Temp 97.9 Pulse 110 Resp 20 B/P (MAP) 128/82 Pulse Ox 95 O2 Delivery Room Air O2 Flow Rate 2.00 Capillary Refill : Less Than 3 SecondsLess Than 3 Seconds General Appearance: No Apparent Distress, WD/WN, Chronically ill, Thin Eyes: Bilateral Eye Normal Inspection, Bilateral Eye PERRL HEENT: PERRL/EOMI, Normal ENT Inspection, Pharynx Normal Neck: Full Range of Motion, Normal Inspection, Non Tender, Supple, Carotid Bruit Respiratory: Chest Non Tender, No Accessory Muscle Use, No Respiratory Distress , Crackles, Decreased Breath Sounds, Wheezing Cardiovascular: Regular Rate, Rhythm, No Edema, No Gallop, No JVD, No Murmur, Normal Peripheral Pulses Gastrointestinal: Normal Bowel Sounds, No Organomegaly, No Pulsatile Mass, Non Tender, Soft Back: Normal Inspection, No CVA Tenderness, No Vertebral Tenderness Extremity: Normal Capillary Refill, Normal Inspection, Normal Range of Motion, Non Tender, No Calf Tenderness, No Pedal Edema Neurologic/Psychiatric: Alert, Oriented x3, No Motor/Sensory Deficits, Depressed Affect Skin: Normal Color, Warm/Dry Lymphatic: No Adenopathy Results Results/Procedures Lab Laboratory Tests 09/25/16 21:15 09/26/16 05:55 09/26/16 22:15 09/27/16 05:34 09/27/16 05:35 Assessment/Plan Admission Diagnosis Assessment: Severe pneumonia with complete white out on x-ray History of cancer now with new primary biopsy results pending Severe debility and weakness Assessment and Plan Plan: Reduce fluids to 30cc/hr with FUR EXAMINER Palliative Care consult if worsens by Sunday am Monitor closely Continue abx Poor prognosis DNR Clinical Quality Measures DVT/VTE Risk/Contraindication: VTE Present on Admission: No Risk Factor Score Per Nursin RFS Level Per Nursing on Admit: 4+=Very High Contraindications-Pharm: Other *list below* Other: Patient had biopsy of a large left lung mass and is having hemoptysis. She is scheduled to have pinning of a pathologic right humeral fracture in the next day or 2. VIOLETA LU DO Sep 27, 2016 11:35
[2016-09-27 12:00] VITALS: BP 109/66
[2016-09-27] MEDS ORDERED: LEVOFLOXACIN 500 MG/100 ML IV 100 ML IV NR (13:30)
--- NOTE | 2016-09-27 15:44 | Diagnostic Imaging Report ---
EXAMINATION: Whole body bone scan. TECHNIQUE: After the intravenous administration of 26.6 mCi of Technetium 99m MDP, whole body delayed phase bone scan images were obtained with lateral views of the head and neck and the chest regions. INDICATION: Pathologic fracture of the right humerus. Back pain. FINDINGS: There is moderate intensity of increased uptake in the mid right humerus corresponding to the pathologic fracture known. There is also mild to moderate increased uptake involving the T11 vertebral body. This is compatible with a compression fracture demonstrated on the thoracic spine MRI. Mild increased activity in the L5 vertebral body and multiple foci of increased activity in the skull are seen. There is mild focus of increased activity in the mid right femoral shaft. IMPRESSION: 1. Multiple foci of increased activity in the skull, the right humerus and the right femur are concerning for metastatic disease. 2. T12 compression fracture is associated with relatively mild activity compatible with subacute fractures. There is also a nonspecific mild increased activity in the L5 vertebral body which could be degenerative or related to early metastasis. Dictated by: Dictated on workstation # [id number]
[2016-09-27 15:47] VITALS: BP 122/76
[2016-09-27 19:20] VITALS: BP 117/57
[2016-09-27 23:40] VITALS: BP 118/55
[2016-09-28 04:00] VITALS: BP 112/58
[2016-09-28 06:09] LABS: BASOPHILS % (AUTO) 0 % (0-10); EOSINOPHILS # (AUTO) 0.1 10^3/uL (0.0-0.3); EOSINOPHILS % (AUTO) 1 % (0-10); LYMPHOCYTES % (AUTO) 17 % (12-44); MEAN CORPUSCULAR HEMOGLOBIN 29 PG (25-34); MEAN CORPUSCULAR HGB CONC 32 G/DL (32-36); MEAN CORPUSCULAR VOLUME 89 FL (80-99); MEAN PLATELET VOLUME 9.9 FL (7.4-10.4); MONOCYTES # (AUTO) 1.2 X 10^3 (0.0-1.0); MONOCYTES % (AUTO) 10 % (0-12); NEUTROPHILS # (AUTO) 8.3 X 10^3 (1.8-7.8); NEUTROPHILS % (AUTO) 72 % (42-75); PLATELET COUNT 395 10^3/uL (130-400); RED BLOOD COUNT 3.17 10^6/uL (4.35-5.85); RED CELL DISTRIBUTION WIDTH 13.5 % (10.0-14.5); WHITE BLOOD COUNT 11.6 10^3/uL (4.3-11.0)
[2016-09-28 06:29] LABS: ANION GAP 10 MMOL/L (5-14); BLOOD UREA NITROGEN 8 MG/DL (7-18); BUN/CREATININE RATIO 17; CALCIUM 10.5 MG/DL (8.5-10.1); CARBON DIOXIDE 21 MMOL/L (21-32); CHLORIDE 101 MMOL/L (98-107); CREATININE SERUM 0.48 MG/DL (0.60-1.30); GFR ESTIMATED > 60; GLUCOSE 95 MG/DL (70-105); POTASSIUM 2.9 MMOL/L (3.6-5.0); SODIUM 132 MMOL/L (135-145)
[2016-09-28] MEDS: RT-ALBUTEROL/IPRATROPIUM 3 ML (DUONEB) VIAL INH SCH ×4 (07:15→19:06)
[2016-09-28] MEDS: NS IV 1000 ML 1,000 ML IV SCH (07:32)
[2016-09-28 08:00] VITALS: BP_SYST 112; BP_SYST 126; BP_DIAS 126; BP_DIAS 57
[2016-09-28] MEDS: CEFEPIME INJECTION 2,000 MG in NS (IVPB) 50 ML IV SCH ×2 (08:07→20:29)
[2016-09-28] MEDS: SENNA W/DOCUSATE (SENOKOT S) TABLET PO SCH (08:08)
[2016-09-28] MEDS: LEVOFLOXACIN 750 MG/D5W 150 ML PRE-MIX IV SCH (08:08)
--- NOTE | 2016-09-28 10:37 | Progress Note-Hospitalist ---
Progress Note HPI/CC on Admission CC: Metastatic cancer, left lung mass HPI: This is a 65 yoWF pt being treated by Dr. Mercedes for left lung mass and metastatic cancer Dr. Mercedes Review: Pt has a huge left lung mass. Biopsy results may be back tomorrow Pt's last treatment was in 2009 and hormone therapy finished in 2016 Pt is DNR, but pt still wants the treatment psych tech: Pt has been eating about 50% Pt is on 250 fluids, but since she is eating this seems a bit much SW Review: Pt does have skilled benefits Patient Interview: Pt states that she is breathing a bit better. Pt denies coughing a lot. Pt denies ambulating Physical exam stable Pt has been tolerating her pain Pt has had BMs Pt was informed that Dr. Mercedes is taking care of her, but I will be here over the weekend to continue her care. Scribed by Callie Her under the direct supervision of Dr. Drummond. Progress Notes/Assess & Plan Date Seen 09/28/16 Time Seen by Provider: 10:00 Admission Dx/Process Assessment: Severe pneumonia with complete white out on x-ray History of cancer now with new primary biopsy results pending Severe debility and weakness Diagonsis/Assessment & Plan Chart Review: WBC 11.6 Hgb 9.1 Na+ 132 K+ 2.9 Ca++ 10.5 CXR complete opacification left lung SW Review: Pt will have surgery today for arm repair Pt is in denial about her CA after palliative care nurse evaluated the case and talked to the patient Medical Student Review: Pt is not experiencing pain and she is not very responsive Right arm surgery 1300 today Pt is still with catheter Bone scan showed metastatic growth in multiple regions Patient Interview: Pt states that she is breathing well today Pt states that Dr. Mercedes has not seen her yet today Pt states that she does not remember the name of the surgeon she will see for the procedure today Physical exam stable. Pt confirms that the Morphine is working well for her pain Pt states that it has been a few days since her last BM Pt states that she ate a small amount yesterday no fever, vital signs stable, pleasant, frail, pale, flat affect Regular rate and rhythm, clear to auscultation bilaterally upper lobes but decreased significantly bilateral lower lobes No edema Laboratory Tests 09/28/16 05:25 Assessment: Severe pneumonia with complete white out on x-ray on abx empirically History of cancer now with new primary biopsy results pending Severe debility and weakness Bone mets on bone scan Hyponatremia Hypokalemia Plan: Reduce fluids to 30cc/hr with BUFFER CHROME Palliative Care consult if worsens by Sunday am Monitor closely Continue abx Poor prognosis DNR Surgery today? Scribed by Callie Her under the direct supervision of Dr. Drummond. VIOLETA DRUMMOND DO Sep 28, 2016 10:37
[2016-09-28] MEDS ORDERED: LACTATED RINGERS 1,000 ML IV PRN (10:57)
[2016-09-28] MEDS ORDERED: DEXAMETHASONE PF 10 MG/ML (DECADRON) VIAL ONE (10:59)
[2016-09-28] MEDS ORDERED: LIDOCAINE PF 2% 5 ML (XYLOCAINE) VIAL ONE (10:59)
[2016-09-28] MEDS ORDERED: ONDANSETRON 4 MG/2 ML (SDV) Z0FRAN ONE (10:59)
[2016-09-28] MEDS ORDERED: proPOfol 200 MG/20 ML (DIPRIVAN) VIAL IV ONE (10:59)
[2016-09-28] MEDS ORDERED: fentaNYL INJECTION 100 MCG/2 ML AMP ONE ×2 (11:00→14:52)
[2016-09-28] MEDS ORDERED: MIDAZOLAM 2 MG/2 ML (VERSED) VIAL ONE (11:00)
[2016-09-28] MEDS: POTASSIUM CL 10MEQ/50ML IVPB 50 ML IV SCH ×4 (11:12→22:08)
[2016-09-28] MEDS ORDERED: SEVOFLURANE (ULTANE) 15 ML INHAL SOLN ONE ×3 (11:17)
--- NOTE | 2016-09-28 11:49 | Progress Note (SOAP) ---
Subjective Time Seen by Provider: 11:30 Subjective/Events-last exam Right humeral fracture scheduled for repair later today; Pain is presently well controlled. Spoke with patient and informed her that I had spoken personally to the pathologist who said that the lung mass biopsy showed a malignant tumor but the stain that would allow us to distinguish the tumor's origin will not be available until tomorrow. She voiced understanding. Objective Exam Vital Signs Date Time Temp Pulse Resp B/P (MAP) Pulse Ox O2 Delivery O2 Flow Rate FiO2 09/28/16 09:00 Nasal Cannula 5.00 09/28/16 08:00 99.6 109 14 112/126 92 Nasal Cannula 5.00 09/28/16 07:15 94 Nasal Cannula 5.00 09/28/16 04:00 98.8 114 28 112/58 91 Nasal Cannula 5.00 09/28/16 02:01 93 Nasal Cannula 5.00 09/27/16 23:40 99.5 122 20 118/55 90 Nasal Cannula 5.00 09/27/16 21:57 91 Nasal Cannula 5.00 09/27/16 20:00 NIV Bilevel 5.00 09/27/16 20:00 24 09/27/16 19:21 92 Nasal Cannula 5.00 09/27/16 19:20 99.7 111 32 117/57 91 Nasal Cannula 5.00 09/27/16 19:16 26 09/27/16 15:47 98.6 106 30 122/76 95 Nasal Cannula 5.00 09/27/16 12:00 98.8 113 26 109/66 92 Nasal Cannula 5.00 I & O 09/28/16 07:00 Intake Total 1700 ml Output Total 725 ml Balance 975 ml Capillary Refill : Less Than 3 SecondsLess Than 3 Seconds General Appearance: Chronically ill, Thin Respiratory: Decreased Breath Sounds Cardiovascular: Regular Rate, Rhythm Gastrointestinal: normal bowel sounds, non tender, soft Extremity: Swelling (RUE swelling) Neurologic/Psychiatric: Alert Results Lab Laboratory Tests 09/26/16 22:15 09/27/16 05:34 09/27/16 05:35 09/28/16 05:25 Laboratory Tests 09/28/16 05:25: White Blood Count 11.6H, Red Blood Count 3.17L, Hemoglobin 9.1L, Hematocrit 28L , Mean Corpuscular Volume 89, Mean Corpuscular Hemoglobin 29, Mean Corpuscular Hemoglobin Concent 32, Red Cell Distribution Width 13.5, Platelet Count 395, Mean Platelet Volume 9.9, Neutrophils (%) (Auto) 72, Lymphocytes (%) (Auto) 17, Monocytes (%) (Auto) 10, Eosinophils (%) (Auto) 1, Basophils (%) (Auto) 0, Neutrophils # (Auto) 8.3H, Lymphocytes # (Auto) 2.0, Monocytes # (Auto) 1.2H, Eosinophils # (Auto) 0.1, Basophils # (Auto) 0.0, Sodium Level 132L, Potassium Level 2.9L, Chloride Level 101, Carbon Dioxide Level 21, Anion Gap 10, Blood Urea Nitrogen 8, Creatinine 0.48L, Estimat Glomerular Filtration Rate > 60, BUN/ Creatinine Ratio 17, Glucose Level 95, Calcium Level 10.5H Microbiology 09/26/16 Blood Culture - Preliminary, Resulted No growth 09/27/16 Gram Stain - Final, Resulted 09/27/16 Sputum Culture - Preliminary, Resulted Usual/normal burke isolated. 09/26/16 Urine Culture - Final, Complete NO GROWTH Assessment/Plan Assessment/Plan Assess & Plan/Chief Complaint 1. Right humeral pathologic fracture-bone scan requested. Orthopedics consultation has been requested for assessment and treatment; radiation oncology consultation will follow Orthopedics assessment (and jeannine placement). a. Surgery planned for later today. 2. 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 3. Back pain radiating down right leg-obtain MRI thoracic or lumbar spine MRI Thoracic and Lumbar Spine have been reviewed; T11 compression fracture thought to be metastatic and L1 not metastatic. 4. Pneumonia-Continue I V antibiotics; 5. Left Upper Lobe Mass--favor new lung primary versus metastatic breast cancer lesion; CAT scan guided lung mass biopsy performed 09/26/16 and results are pending. 6. Anemia/ Drop in hemoglobin- multifactorial related to aggressive IV hydration, anemia of cancer and hemoptysis. Hemoglobin 9.1 today. 7. History of locally advanced breast cancer treated with neoadjuvant chemotherapy and radiation followed by bilateral mastectomy in 2010; Patient presented with 5cm draining breast mass in 2009 with clinically positive axillary lymph nodes. 8. Hypercalcemia, mild-- IV hydration appropriately slowed, mild elevation again noted; Will hold off on pamidronate until after surgery; 9. Hypokalemia -replace potassium and monitor 10. Hyponatremia- we will monitor; cannot exclude SIADH related to lung mass 11. History of Chronic tobaccoism --patient states he quit smoking 2 months ago ; 12. DVT prophylaxis- Use SCDs only for now since patient is having hemoptysis post lung biopsy and since humeral pinning by Orthopedic surgery is impending; 13. Patient is DNR. 14. I will be away until October 03, [address] Marielena Drummond will be covering me. Dr. Atwood and Dr. Smith will be available for 09/29 only. Clinical Quality Measures DVT/VTE Risk/Contraindication: VTE Present on Admission: No Risk Factor Score Per Nursin RFS Level Per Nursing on Admit: 4+=Very High Contraindications-Pharm: Other *list below* Other: Patient had biopsy of a large left lung mass and is having hemoptysis. She is scheduled to have pinning of a pathologic right humeral fracture in the next day or 2. HANDY ALCARAZ MD Sep 28, 2016 11:49
[2016-09-28 12:00] VITALS: BP 112/58
[2016-09-28] MEDS ORDERED: GENTAMICIN 40 MG/ML 2 ML INJ SDV ONE (12:32)
[2016-09-28] MEDS ORDERED: ceFAZolin 2 GM/50 ML NS 50 ML ONE (13:17)
[2016-09-28] MEDS ORDERED: KETAMINE HCL 100 MG/ML 5 ML VIAL ONE (13:32)
[2016-09-28] MEDS ORDERED: SUCCINYLCHOLINE INJ 100 MG/5 ML SYR ONE ×2 (13:32→14:33)
--- NOTE | 2016-09-28 14:50 | Progress Note-Post Operative ---
Post-Operative Progess Note Surgeon (s)/Pension Manager (s) Surgeon BRENDA FINNEGAN MD Pension Manager: EDWIN MONTANEZ PA-C Pre-Operative Diagnosis PATHOLOGIC FRACTURE OF RIGHT HUMERAL DIAPHYSIS Post-Operative Diagnosis SAME Procedure & Operative Findings Date of Procedure 09/28/16 Procedure Performed/Findings BIOPSY RIGHT HUMERUS INTRAMEDULLARY NAIL RIGHT HUMERUS Anesthesia Type TOTAL IV ANESTHESIA USING KETAMINE, PROPOFOL, AND FENTANYL AND MASK (NO ET TUBE OR VENTILATOR) Estimated Blood Loss Estimated blood loss (mL): 50 ML Specimens/Packing Specimens Removed SENT TUMOR AND REAMINGS FROM RIGHT HUMERUS FOR ROUTINE PATHOLOGY Packing: NONE BRENDA FINNEGAN MD Sep 28, 2016 14:50
[2016-09-28] MEDS ORDERED: fentaNYL INJECTION 100 MCG/2 ML AMP IVP PRN (15:00)
[2016-09-28] MEDS ORDERED: morphine INJ 10 MG/ML 1ML (SYR OR VIAL) IVP PRN (15:00)
--- NOTE | 2016-09-28 15:01 | Consultation ---
History of Present Illness History of Present Illness Patient Consulted On(chato/time) 09/28/16 14:56 Date Seen by Provider: Sep 28, 2016 Time Seen by Provider: 13:00 Reason for Visit: RIGHT HUMERUS FRACTURE History of Present Illness THIS 65 YEAR OLD FEMALE HAS HAD RIGHT ARM PAIN FOR A WHILE AND CAME TO THE ER HERE A FEW DAYS AGO AND WAS ADMITTED FOR A PATHOLOGIC HUMERUS FRACTURE AND CHEST MASSES. PMH OF BREAST CANCER. DR. NEGRETE ASKED IF I COULD SEE HER AND PLACE A HUMERAL NAIL. Allergies and Home Medications Allergies Coded Allergies: No Known Drug Allergies (Unverified , 10/05/09) Home Medications Levothyroxine Sodium 50 Mcg Tablet, 50 MCG PO DAILY, (Reported) Mirtazapine 15 Mg Tablet, 15 MG PO HS, (Reported) Multivitamins 1 Tab Tablet, 1 TAB PO DAILY, (Reported) Oxycodone HCl/Acetaminophen 1 Each Tablet, 1 TAB PO Q4H PRN for PAIN-MODERATE, ( Reported) Past Llxezct-Lpdhuy-Buakta Hx Patient Social History Alcohol Use: Occasionally Uses (HISTORY OF DAILY USE--"3-4 BEERS A DAY", NOW ONLY "OCCASIONAL" USE. ) Recreational Drug Use: No Smoking Status: Current Everyday Smoker (SMOKED AT LEAST 1 PPD --CLAIMS SHE QUIT 2 MONTHS AGO, PER PT ON 09/25/16) Type Used: Cigarettes 2nd Hand Smoke Exposure: Yes Recent Foreign Travel: No Contact w/Someone Who Travel: No Recent Infectious Disease Expo: No Recent Hopitalizations: No Physical Abuse Screen: No Sexual Abuse: No Immunizations Up To Date Tetanus Booster (TDap): Unknown PED Vaccines UTD: No Seasonal Allergies Seasonal Allergies: No Surgeries HX Surgeries: Yes (BILATERAL MASTECTOMY; LEFT TOE REMOVAL) Surgeries: Appendectomy, Breast, Orthopedic Respiratory Hx Respiratory Disorders: Yes Respiratory Disorders: Pneumonia, COPD Cardiovascular Hx Cardiac Disorders: No Neurological Hx Neurological Disorders: No 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 System : No Hx 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 Genitourinary Hx Genitourinary Disorders: No Gastrointestinal Hx Gastrointestinal Disorders: Yes Gastrointestinal Disorders: Gastroesophageal Reflux Musculoskeletal Hx Musculoskeletal Disorders: Yes (COMPRESSION FRACTURES) Musculoskeletal Disorders: Chronic Back Pain, Fractures Endocrine Hx Endocrine Disorders: Yes Endocrine Disorders: Hypothyroidsim HEENT HX ENT Disorders: Yes Cancer Hx Cancer: Yes (BREAST CANCER DX 2009--S/P BILATERAL MASTECTOMY, CHEMO AND RADIATION) Cancer: Breast Psychosocial Hx Psychiatric Problems: No Integumentary HX Skin/Integumentary Disorder: No Blood Transfusions Hx Blood Disorders: No Family Medical History Family Medial History: FH: brain cancer G8 BROTHER G8 SISTER FH: liver cancer G8 SISTER FH: lung cancer 19 FATHER 19 MOTHER G8 BROTHER FH: skin cancer Review of Systems-General Constitutional: see HPI Physical Exam-General Problems Physical Exam Vital Signs Vital Sign - Last 12Hours 09/25/16 09/26/16 20:29 00:46 Temp 97.9 Pulse 110 Resp 20 B/P (MAP) 128/82 Pulse Ox 95 O2 Delivery Room Air O2 Flow Rate 2.00 Capillary Refill : Less Than 3 SecondsLess Than 3 Seconds Neck: non-tender Extremities: no pedal edema, no calf tenderness, normal capillary refill, other (SWELLING AND RIGHT ARM DEFORMITY.) Neurologic/Psychiatric: no motor/sensory deficits, depressed affect Skin: normal color Assessment/Plan Assessment/Plan Admission Diagnosis/Plan PATHOLOGIC RIGHT HUMERAL DIAPHYSIS FRACTURE-- WILL BIOPSY AND STABILIZE WITH INTRAMEDULLARY NAIL. FROM THE STANDPOINT OF THE HUMERUS, SHE CAN GO HOME TOMORROW BUT FROM WHAT THE FAMILY EXPLAINS THERE ARE OTHER MEDICAL ISSUES UNDER TREATMENT THAT WILL KEEP HER HERE LONGER. Clinical Quality Measures DVT/VTE Risk/Contraindication: VTE Present on Admission: No Risk Factor Score Per Nursin RFS Level Per Nursing on Admit: 4+=Very High Contraindications-Pharm: Other *list below* Other: Patient had biopsy of a large left lung mass and is having hemoptysis. She is scheduled to have pinning of a pathologic right humeral fracture in the next day or 2. BRENDA FINNEGAN MD Sep 28, 2016 15:01
--- NOTE | 2016-09-28 15:30 | Diagnostic Imaging Report ---
EXAMINATION: Five views of the right humerus, intraoperative. INDICATION: Right humerus fracture. IMPRESSION: Internal fixation with interlocked nailing of the humerus is seen, performed by Dr. Schroeder. FLUOROSCOPY TIME: 1 minute and 7 seconds. Dictated by: Dictated on workstation # [id number]
--- NOTE | 2016-09-28 15:33 | Operative Report ---
Operative Report Date of Procedure/Surgery Sep 28, 2016 Surgeon (s) BRENDA FINNEGAN MD Certified Addiction Counselor (s): EDWIN MONTANEZ PA-C Post-Operative Diagnosis Pathologic right humeral fracture. Procedure Performed Biopsy right humerus. Intramedullary nail right humerus. Description of Procedure Anesthesia Type: General Estimated blood loss (mL): 50 ML Specimen(s) collected/removed Right humerus, routine path Packing: NONE Description of the Procedure The patient was taken to the OR and placed under total IV anesthesia. Supine position with a roll under the right scapula was used. We did a "time out." The right arm was prepped and draped in sterile fashion. The C-arm was brought in from the opposite side and a 2 cm incision was made over the superior shoulder. The deltoid was split and a guide pin was drilled into the humeral head under c-arm guidance and the rigid reamer was used. A flexible guidewire was placed down the diaphysis to the distal humerus. The length was determined and a 9 mm by 240 mm Synthes nail was chosen. A long spinal pituitary ronguere was used to biopsy the humerus and then a 10 mm reamer was used and all the reamings and bone marrow was sent to path. The nail was then placed over the guide wire to the appropriate depth and the guide wire was taken out. The aiming device was then used to place the proximal screw and spiral blade through a second deltoid splitting incision. The locking end cap was placed. Then the insertion device was removed. A single distal locking screw was placed through a 1 cm anterior incision under image. Hard copy C-arm images were saved to the PACS system documenting satisfactory reduction and implant size and position. The wounds were irrigated and closed in layers with 0 polysorb, 2-0 polysorb, subcuticular caprosyn on the skin and Steri-strips. A sterile dressing was placed and a sling, and she was taken to the PACU in stable condition. Findings of the Procedure pathologic humeral diaphyseal fracture Allergies and Home Medications Allergies Coded Allergies: No Known Drug Allergies (Unverified , 10/05/09) Home Medications Levothyroxine Sodium 50 Mcg Tablet, 50 MCG PO DAILY, (Reported) Mirtazapine 15 Mg Tablet, 15 MG PO HS, (Reported) Multivitamins 1 Tab Tablet, 1 TAB PO DAILY, (Reported) Oxycodone HCl/Acetaminophen 1 Each Tablet, 1 TAB PO Q4H PRN for PAIN-MODERATE, ( Reported) BRENDA FINNEGAN MD Sep 28, 2016 15:33
[2016-09-28 16:10] VITALS: BP 135/60
[2016-09-28 20:53] VITALS: BP 116/67
[2016-09-28] MEDS ORDERED: ceFAZolin INJECTION 1,000 MG in NS (IVPB) 50 ML IV SCH (22:00)
[2016-09-28] MEDS ORDERED: POTASSIUM CL 10MEQ/50ML IVPB 0 ML IV ONE (22:02)
[2016-09-29 00:11] VITALS: BP 120/76
[2016-09-29 03:37] VITALS: BP 118/70
[2016-09-29 04:36] LABS: BASOPHILS % (AUTO) 0 % (0-10); EOSINOPHILS % (AUTO) 0 % (0-10); LYMPHOCYTES # (AUTO) 1.1 X 10^3 (1.0-4.0); LYMPHOCYTES % (AUTO) 11 % (12-44); MEAN CORPUSCULAR HEMOGLOBIN 29 PG (25-34); MEAN CORPUSCULAR HGB CONC 32 G/DL (32-36); MEAN CORPUSCULAR VOLUME 90 FL (80-99); MEAN PLATELET VOLUME 9.7 FL (7.4-10.4); MONOCYTES # (AUTO) 0.8 X 10^3 (0.0-1.0); MONOCYTES % (AUTO) 7 % (0-12); NEUTROPHILS # (AUTO) 8.6 X 10^3 (1.8-7.8); NEUTROPHILS % (AUTO) 82 % (42-75); PLATELET COUNT 415 10^3/uL (130-400); RED BLOOD COUNT 3.18 10^6/uL (4.35-5.85); RED CELL DISTRIBUTION WIDTH 13.5 % (10.0-14.5); WHITE BLOOD COUNT 10.6 10^3/uL (4.3-11.0)
[2016-09-29 04:54] LABS: ANION GAP 8 MMOL/L (5-14); BLOOD UREA NITROGEN 14 MG/DL (7-18); BUN/CREATININE RATIO 25; CALCIUM 11.1 MG/DL (8.5-10.1); CARBON DIOXIDE 23 MMOL/L (21-32); CHLORIDE 101 MMOL/L (98-107); CREATININE SERUM 0.56 MG/DL (0.60-1.30); GFR ESTIMATED > 60; GLUCOSE 126 MG/DL (70-105); POTASSIUM 3.9 MMOL/L (3.6-5.0); SODIUM 132 MMOL/L (135-145)
[2016-09-29] MEDS: RT-ALBUTEROL/IPRATROPIUM 3 ML (DUONEB) VIAL INH SCH ×5 (07:00→23:21)
--- NOTE | 2016-09-29 07:43 | Consultation ---
History of Present Illness History of Present Illness Patient Consulted On(chato/time) 09/29/16 07:38 Date Seen by Provider: Sep 26, 2016 Time Seen by Provider: 19:00 Reason for Visit: RIGHT HUMERUS FRACTURE History of Present Illness 65 yr old WF with severe RUE pain that occured while getting up from a chair. she has newly diagnosed lung cancer. the patient obtained XR in the ER which shows a pathologic fracture of the humerous with lytic destruction. There has been no biopsy obtained at the time of orthopedic consultation. the patient denies any other sites of pain. she is agreeable to operative stabilization of the fracture. Allergies and Home Medications Allergies Coded Allergies: No Known Drug Allergies (Unverified , 10/05/09) Home Medications Levothyroxine Sodium 50 Mcg Tablet, 50 MCG PO DAILY, (Reported) Mirtazapine 15 Mg Tablet, 15 MG PO HS, (Reported) Multivitamins 1 Tab Tablet, 1 TAB PO DAILY, (Reported) Oxycodone HCl/Acetaminophen 1 Each Tablet, 1 TAB PO Q4H PRN for PAIN-MODERATE, ( Reported) Past Ybbvilx-Trlcoo-Lqeqrf Hx Patient Social History Alcohol Use: Occasionally Uses (HISTORY OF DAILY USE--"3-4 BEERS A DAY", NOW ONLY "OCCASIONAL" USE. ) Recreational Drug Use: No Smoking Status: Current Everyday Smoker (SMOKED AT LEAST 1 PPD --CLAIMS SHE QUIT 2 MONTHS AGO, PER PT ON 09/25/16) Type Used: Cigarettes 2nd Hand Smoke Exposure: Yes Recent Foreign Travel: No Contact w/Someone Who Travel: No Recent Infectious Disease Expo: No Recent Hopitalizations: No Physical Abuse Screen: No Sexual Abuse: No Immunizations Up To Date Tetanus Booster (TDap): Unknown PED Vaccines UTD: No Seasonal Allergies Seasonal Allergies: No Surgeries HX Surgeries: Yes (BILATERAL MASTECTOMY; LEFT TOE REMOVAL) Surgeries: Appendectomy, Breast, Orthopedic Respiratory Hx Respiratory Disorders: Yes Respiratory Disorders: Pneumonia, COPD Cardiovascular Hx Cardiac Disorders: No Neurological Hx Neurological Disorders: No 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 System : No Hx 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 Disorders: No 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 Genitourinary Hx Genitourinary Disorders: No Gastrointestinal Hx Gastrointestinal Disorders: Yes Gastrointestinal Disorders: Gastroesophageal Reflux Musculoskeletal Hx Musculoskeletal Disorders: Yes (COMPRESSION FRACTURES) Musculoskeletal Disorders: Chronic Back Pain, Fractures Endocrine Hx Endocrine Disorders: Yes Endocrine Disorders: Hypothyroidsim HEENT HX ENT Disorders: Yes Cancer Hx Cancer: Yes (BREAST CANCER DX 2009--S/P BILATERAL MASTECTOMY, CHEMO AND RADIATION) Cancer: Breast Psychosocial Hx Psychiatric Problems: No Integumentary HX Skin/Integumentary Disorder: No Blood Transfusions Hx Blood Disorders: No Family Medical History Family Medial History: FH: brain cancer G8 BROTHER G8 SISTER FH: liver cancer G8 SISTER FH: lung cancer 19 FATHER 19 MOTHER G8 BROTHER FH: skin cancer Review of Systems-General Constitutional: no symptoms reported Physical Exam-General Problems Physical Exam Vital Signs Vital Sign - Last 12Hours 09/25/16 09/26/16 20:29 00:46 Temp 97.9 Pulse 110 Resp 20 B/P (MAP) 128/82 Pulse Ox 95 O2 Delivery Room Air O2 Flow Rate 2.00 Capillary Refill : Less Than 3 SecondsLess Than 3 Seconds Extremities: other (RUE: pain limited exam, 2/4 radial ulnar pulses, SILT all dermatomes, skin intact, splint in place) Assessment/Plan Assessment/Plan Admission Diagnosis/Plan ASSESSMENT: pathologic R humerus fracture lung cancer PLAN: disccussed with oncology and plan will be to obtain biopsy of lung lesion prior to stabilization of the humerus fracture spoke with dr martino and he has agree to do the surgery splint ISMAEL, JOSE RUEmeli Clinical Quality Measures DVT/VTE Risk/Contraindication: VTE Present on Admission: No Risk Factor Score Per Nursin RFS Level Per Nursing on Admit: 4+=Very High Contraindications-Pharm: Other *list below* Other: Patient had biopsy of a large left lung mass and is having hemoptysis. She is scheduled to have pinning of a pathologic right humeral fracture in the next day or 2. EVER NEGRETE DO Sep 29, 2016 07:43
[2016-09-29 08:30] VITALS: BP 106/57
--- NOTE | 2016-09-29 09:17 | Anesthesia-General Post-Op ---
General Patient Condition Mental Status/LOC: Same as Preop Cardiovascular: Satisfactory Nausea/Vomiting: Absent Respiratory: Satisfactory Pain: Controlled Complications: Absent Post Op Complications Complications None Follow Up Care/Instructions Patient Instructions None needed. Anesthesia/Patient Condition Patient Condition Patient is doing well, no complaints, stable vital signs, no apparent adverse anesthesia problems. No complications reported per nursing. D/C home per [facility] Criteria: No ANÍBAL BECK CRNA Sep 29, 2016 09:17
[2016-09-29] MEDS: LEVOFLOXACIN 750 MG/D5W 150 ML PRE-MIX IV SCH (09:32)
[2016-09-29] MEDS: SENNA W/DOCUSATE (SENOKOT S) TABLET PO SCH (09:34)
[2016-09-29] MEDS: CEFEPIME INJECTION 2,000 MG in NS (IVPB) 50 ML IV SCH ×2 (09:42→20:43)
--- NOTE | 2016-09-29 10:32 | Progress Note-Hospitalist ---
Progress Note HPI/CC on Admission CC: Metastatic cancer, left lung mass HPI: This is a 65 yoWF pt being treated by Dr. Mercedes for left lung mass and metastatic cancer Dr. Mercedes Review: Pt has a huge left lung mass. Biopsy results may be back tomorrow Pt's last treatment was in 2009 and hormone therapy finished in 2016 Pt is DNR, but pt still wants the treatment burrer hand: Pt has been eating about 50% Pt is on 250 fluids, but since she is eating this seems a bit much SW Review: Pt does have skilled benefits Patient Interview: Pt states that she is breathing a bit better. Pt denies coughing a lot. Pt denies ambulating Physical exam stable Pt has been tolerating her pain Pt has had BMs Pt was informed that Dr. Mercedes is taking care of her, but I will be here over the weekend to continue her care. Scribed by Callie Her under the direct supervision of Dr. Lu. Progress Notes/Assess & Plan Date Seen 09/29/16 Time Seen by Provider: 09:30 Admission Dx/Process Assessment: Severe pneumonia with complete white out on x-ray History of cancer now with new primary biopsy results pending Severe debility and weakness Diagonsis/Assessment & Plan Chart Review: Conferred with Dr. Schroeder who performed surgery yesterday and he will sign off Medical Student Review: Pt confirmed humerus surgery yesterday Pt states she is in no pain Pt states that she has been ingesting a small amount of fluid but not much food Pt has not been ambulating Patient Interview: Pts catheter was removed and pt was damp, so she was about to shower upon interview I informed pt that Dr. Schroeder states her surgery went well Physical exam stable I conferred with pathology and it appears that is going to be a squamous cell of the lung a new primary cancer in addition to her breast cancer with multiple metastasis in the bone no fever, vital signs stable, pleasant, frail, pale, flat affect, cachectic noted when she is sitting on the side of the bed getting ready for shower Regular rate and rhythm, clear to auscultation bilaterally upper lobes but decreased significantly bilateral lower lobes No edema Laboratory Tests 09/29/16 04:13 Assessment: Severe pneumonia with complete white out on x-ray on abx empirically History of cancer now with new primary biopsy that appears to be primary squamous all the lung on top of the breast cancer that she has been treated for previously Severe debility and weakness Bone mets on bone scan Hyponatremia Hypokalemia Plan: DC CERTIFIED RECREATIONAL THERAPIST so she can be transitioned to ultimately oral pain meds Continue abx Poor prognosis DNR Scribed by Callie Her under the direct supervision of Dr. Lu. VIOLETA LU DO Sep 29, 2016 10:32
[2016-09-29] MEDS ORDERED: morphine (ROXINOL) 10 MG/0.5 ML oral conc 0.5 ML PO PRN (10:45)
[2016-09-29] MEDS ORDERED: fentaNYL INJECTION 100 MCG/2 ML AMP IVP PRN (10:45)
[2016-09-29] MEDS: NS IV 1000 ML 1,000 ML IV SCH (11:33)
--- NOTE | 2016-09-29 11:47 | Progress Note-Standard ---
Standard Progress Note Progress Notes/Assess & Plan Date Seen by Provider: Sep 29, 2016 Time Seen by Provider: 11:44 Progress/Assessment & Plan SHE IS POSTOP DAY #1 RIGHT HUMERUS NAIL. SAYS SHE IS DOING A LOT BETTER THAN BEFORE THE SURGERY. EXAM-- INCISIONS HEALING WELL. MINIMAL SWELLING AND BRUISING. INCISIONS INTACT WITH NO DRAINAGE DIAGNOSIS: RIGHT PATHOLOGIC HUMERAL FRACTURE PLAN: LEAVE DRESSING OFF. OPEN TO AIR. CAN SHOWER AND GET INCISIONS WET TOMORROW. STERI-STRIPS WILL FALL OFF ON THEIR OWN. SHE IS FREE TO BE DISCHARGED TODAY OR WHEN MEDICALLY READY. I WILL SIGN OFF AND SEE HER IN THE OFFICE IN 2 WEEKS BRENDA FINNEGAN MD Sep 29, 2016 11:47
[2016-09-29 12:00] VITALS: BP 95/54
[2016-09-29] MEDS: HYDROcodone/APAP 5 MG/325 MG (LORTAB) TAB PO PRN ×2 (13:23→20:05)
[2016-09-29 16:00] VITALS: BP 96/55
[2016-09-29 19:48] VITALS: BP 93/54
[2016-09-30] VITALS (7 sets, daily range): BP systolic 95–122; BP diastolic 53–67
[2016-09-30] MEDS: HYDROcodone/APAP 5 MG/325 MG (LORTAB) TAB PO PRN ×4 (00:22→23:32)
[2016-09-30] MEDS: RT-ALBUTEROL/IPRATROPIUM 3 ML (DUONEB) VIAL INH SCH ×6 (02:00→21:51)
[2016-09-30 05:37] LABS: BASOPHILS % (AUTO) 0 % (0-10); EOSINOPHILS # (AUTO) 0.1 10^3/uL (0.0-0.3); EOSINOPHILS % (AUTO) 1 % (0-10); LYMPHOCYTES # (AUTO) 1.5 X 10^3 (1.0-4.0); LYMPHOCYTES % (AUTO) 16 % (12-44); MEAN CORPUSCULAR HEMOGLOBIN 28 PG (25-34); MEAN CORPUSCULAR HGB CONC 31 G/DL (32-36); MEAN CORPUSCULAR VOLUME 90 FL (80-99); MEAN PLATELET VOLUME 9.6 FL (7.4-10.4); MONOCYTES # (AUTO) 0.8 X 10^3 (0.0-1.0); MONOCYTES % (AUTO) 8 % (0-12); NEUTROPHILS # (AUTO) 6.8 X 10^3 (1.8-7.8); NEUTROPHILS % (AUTO) 74 % (42-75); PLATELET COUNT 373 10^3/uL (130-400); RED BLOOD COUNT 2.94 10^6/uL (4.35-5.85); RED CELL DISTRIBUTION WIDTH 13.6 % (10.0-14.5); WHITE BLOOD COUNT 9.2 10^3/uL (4.3-11.0)
[2016-09-30 05:51] LABS: ANION GAP 8 MMOL/L (5-14); BLOOD UREA NITROGEN 18 MG/DL (7-18); BUN/CREATININE RATIO 34; CALCIUM 10.6 MG/DL (8.5-10.1); CARBON DIOXIDE 22 MMOL/L (21-32); CHLORIDE 104 MMOL/L (98-107); CREATININE SERUM 0.53 MG/DL (0.60-1.30); GFR ESTIMATED > 60; GLUCOSE 93 MG/DL (70-105); POTASSIUM 3.2 MMOL/L (3.6-5.0); SODIUM 134 MMOL/L (135-145)
[2016-09-30] MEDS ORDERED: RT-ALBUTEROL/IPRATROPIUM 3 ML (DUONEB) VIAL INH PRN (06:00)
[2016-09-30] MEDS: SENNA W/DOCUSATE (SENOKOT S) TABLET PO SCH (08:04)
[2016-09-30] MEDS: CEFEPIME INJECTION 2,000 MG in NS (IVPB) 50 ML IV SCH ×2 (08:07→20:42)
[2016-09-30] MEDS: LEVOFLOXACIN 750 MG/D5W 150 ML PRE-MIX IV SCH (08:07)
[2016-09-30] MEDS: LEVOTHYROXINE 50 MCG (LEVOTHROID) TAB PO SCH (10:41)
[2016-09-30] MEDS ORDERED: oxyCODONE/APAP 5/325MG (PERCOCET 5) TABLET PO PRN (10:45)
[2016-09-30] MEDS: NS IV 1000 ML 1,000 ML IV SCH (11:36)
[2016-09-30] MEDS: MULTIVIT W/MINERALS TAB (THERAGRAN M) PO SCH (11:36)
--- NOTE | 2016-09-30 13:06 | Progress Note-Hospitalist ---
Progress Note HPI/CC on Admission CC: Metastatic cancer, left lung mass HPI: This is a 65 yoWF pt being treated by Dr. Mercedes for left lung mass and metastatic cancer Dr. Mercedes Review: Pt has a huge left lung mass. Biopsy results may be back tomorrow Pt's last treatment was in 2009 and hormone therapy finished in 2015 Pt is DNR, but pt still wants the treatment exhibit specialist: Pt has been eating about 50% Pt is on 250 fluids, but since she is eating this seems a bit much SW Review: Pt does have skilled benefits Patient Interview: Pt states that she is breathing a bit better. Pt denies coughing a lot. Pt denies ambulating Physical exam stable Pt has been tolerating her pain Pt has had BMs Pt was informed that Dr. Mercedes is taking care of her, but I will be here over the weekend to continue her care. Scribed by Callie Her under the direct supervision of Dr. Drummond. Progress Notes/Assess & Plan Date Seen 09/30/16 Time Seen by Provider: 12:00 Admission Dx/Process Assessment: Severe pneumonia with complete white out on x-ray History of cancer now with new primary biopsy results pending Severe debility and weakness Diagonsis/Assessment & Plan Patient intended to go home but too weak Updated patient and daughter regarding pending biopsy results because additional staining as needed Requires home oxygen that has not been set up yet Is up in a chair and eating better Will HLIVF no fever, vital signs stable, pleasant, frail, pale, flat affect, family at bedside, improved Regular rate and rhythm, clear to auscultation bilaterally upper lobes but decreased significantly bilateral lower lobes No edema Laboratory Tests 09/30/16 05:10 Assessment: Severe pneumonia with complete white out on x-ray on abx empirically History of cancer now with new primary biopsy that appears to be primary squamous all the lung on top of the breast cancer that she has been treated for previously Severe debility and weakness Bone mets on bone scan Hyponatremia Hypokalemia Plan: Continue abx but DC Levaquin Poor prognosis DNR Check CXR in am Replace potassium VIOLETA DRUMMOND DO Sep 30, 2016 13:05
[2016-09-30] MEDS: KCL 10 MEQ TAB (MICRO K) PO SCH ×2 (13:15→20:42)
[2016-09-30] MEDS: MIRTAZAPINE 15 MG (REMERON) TAB PO SCH (20:42)
[2016-10-01] MEDS: RT-ALBUTEROL/IPRATROPIUM 3 ML (DUONEB) VIAL INH SCH ×7 (02:45→22:19)
[2016-10-01] MEDS: LEVOTHYROXINE 50 MCG (LEVOTHROID) TAB PO SCH (05:22)
[2016-10-01] MEDS: HYDROcodone/APAP 5 MG/325 MG (LORTAB) TAB PO PRN ×3 (05:23→23:56)
[2016-10-01 08:00] VITALS: BP 120/57
[2016-10-01] MEDS: MULTIVIT W/MINERALS TAB (THERAGRAN M) PO SCH (10:04)
[2016-10-01] MEDS: KCL 10 MEQ TAB (MICRO K) PO SCH ×3 (10:04→20:49)
[2016-10-01] MEDS: SENNA W/DOCUSATE (SENOKOT S) TABLET PO SCH (10:04)
[2016-10-01] MEDS: CEFEPIME INJECTION 2,000 MG in NS (IVPB) 50 ML IV SCH ×2 (10:04→20:49)
[2016-10-01] MEDS: POLYETHYLENE GLYCOL 17 GM (MIRALAX) PACK PO PRN (10:05)
--- NOTE | 2016-10-01 11:29 | Consultation ---
History of Present Illness History of Present Illness Patient Consulted On(chato/time) 10/01/16 11:28 Time Seen by Provider: 12:28 Reason for Visit: RIGHT HUMERUS FRACTURE History of Present Illness Surgery asked to consult regarding Left lung pleural effusion. Possible need for chest tube. HPI: This is a 65 yoWF pt being treated by Dr. Mercedes for left lung mass and metastatic cancer. She presented to the ER with complaints of right arm pain; found to have a pathologic fracture and CXR showed a huge left lung mass. IR Biopsy was done; no results as of now. She was also seen by Ortho and had rodding of humerus done. Pt's last chemo treatment was in 2009 and hormone therapy finished in 2015. Pt is DNR, but pt still wants the treatment. Pt has been eating only about 50% (per RN). When seen today she states that she is breathing a bit better. Pt denies coughing a lot. Breathing is no worse than when she came in, but does hurt when she coughs. She appears comfortable on nasal O2. Pt is not ambulating, her pain mostly controlled, has had BMs. No other complaints at this time. Allergies and Home Medications Allergies Coded Allergies: No Known Drug Allergies (Unverified , 10/05/09) Home Medications Levothyroxine Sodium 50 Mcg Tablet, 50 MCG PO DAILY, (Reported) Mirtazapine 15 Mg Tablet, 15 MG PO HS, (Reported) Multivitamins 1 Tab Tablet, 1 TAB PO DAILY, (Reported) Oxycodone HCl/Acetaminophen 1 Each Tablet, 1 TAB PO Q4H PRN for PAIN-MODERATE, ( Reported) Past Mlpxvdx-Vwkeax-Rsjzsk Hx Patient Social History Alcohol Use: Occasionally Uses (HISTORY OF DAILY USE--"3-4 BEERS A DAY", NOW ONLY "OCCASIONAL" USE. ) Recreational Drug Use: No Smoking Status: Current Everyday Smoker (SMOKED AT LEAST 1 PPD --CLAIMS SHE QUIT 2 MONTHS AGO, PER PT ON 09/25/16) Type Used: Cigarettes 2nd Hand Smoke Exposure: Yes Recent Foreign Travel: No Contact w/Someone Who Travel: No Recent Infectious Disease Expo: No Recent Hopitalizations: No Physical Abuse Screen: No Sexual Abuse: No Immunizations Up To Date Tetanus Booster (TDap): Unknown PED Vaccines UTD: No Seasonal Allergies Seasonal Allergies: No Surgeries HX Surgeries: Yes (BILATERAL MASTECTOMY; LEFT TOE REMOVAL) Surgeries: Appendectomy, Breast, Orthopedic Respiratory Hx Respiratory Disorders: Yes Respiratory Disorders: Pneumonia, COPD Cardiovascular Hx Cardiac Disorders: No Neurological Hx Neurological Disorders: No 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 System : No Hx 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 Genitourinary Hx Genitourinary Disorders: No Gastrointestinal Hx Gastrointestinal Disorders: Yes Gastrointestinal Disorders: Gastroesophageal Reflux Musculoskeletal Hx Musculoskeletal Disorders: Yes (COMPRESSION FRACTURES) Musculoskeletal Disorders: Chronic Back Pain, Fractures Endocrine Hx Endocrine Disorders: Yes Endocrine Disorders: Hypothyroidsim HEENT HX ENT Disorders: Yes Cancer Hx Cancer: Yes (BREAST CANCER DX 2009--S/P BILATERAL MASTECTOMY, CHEMO AND RADIATION) Cancer: Breast Psychosocial Hx Psychiatric Problems: No Integumentary HX Skin/Integumentary Disorder: No Blood Transfusions Hx Blood Disorders: No Family Medical History Significant Family History: Cancer Family Medial History: FH: brain cancer G8 BROTHER G8 SISTER FH: liver cancer G8 SISTER FH: lung cancer 19 FATHER 19 MOTHER G8 BROTHER FH: skin cancer Review of Systems-General Constitutional: No chills, malaise, weakness, weight loss EENTM: No epistaxis, No mouth pain, No mouth swelling, No throat swelling Respiratory: cough, dyspnea on exertion, No hemoptysis Cardiovascular: No chest pain, No edema, No palpitations Gastrointestinal: No abdominal pain, No hematemesis, No melena Genitourinary: No dysuria, No hematuria Musculoskeletal: see HPI, joint pain, muscle stiffness Skin: No change in color, No change in hair/nails Psychiatric/Neurological: Denies Anxiety, Depressed, Denies Pre-Existing Deficit, Denies Seizure, Weakness Physical Exam-General Problems Physical Exam Vital Signs Vital Sign - Last 12Hours 09/25/16 09/26/16 20:29 00:46 Temp 97.9 Pulse 110 Resp 20 B/P (MAP) 128/82 Pulse Ox 95 O2 Delivery Room Air O2 Flow Rate 2.00 Capillary Refill : Less Than 3 SecondsLess Than 3 Seconds General Appearance: cachetic, no apparent distress, other (appears comfortable while resting in bed) Eyes: Bilateral Eye EOMI, Bilateral Eye PERRL HEENT: pharynx normal, No scleral icterus (R), No scleral icterus (L) Neck: non-tender, supple, No thyromegaly Respiratory: no respiratory distress, no accessory muscle use, decreased breath sounds (left almost none, very distant), crackles (left), other (right lung ECTA) Cardiovascular: regular rate, rhythm, no murmur Gastrointestinal: normal bowel sounds, no organomegaly, no pulsatile mass Rectal: deferred Back: no CVA tenderness, no vertebral tenderness Extremities: no pedal edema, no calf tenderness, pelvis stable, other (right arm in sling, recent surgical jeannine placed) 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 pathologic R humerus fracture - S/P ortho repair with jeannine placement Probable lung cancer - pathology still not back as of today PLAN: At this point pt is breathing ok, no respiratory distress and do not believe placing a CT is helpful for her. Possibly if she gets worse and we could place a thoravent, that may help. I think symptomatic control is her best option at this time and avoid any more invasive procedures. Thank you for this consult Clinical Quality Measures DVT/VTE Risk/Contraindication: VTE Present on Admission: No Risk Factor Score Per Nursin RFS Level Per Nursing on Admit: 4+=Very High Contraindications-Pharm: Other *list below* Other: Patient had biopsy of a large left lung mass and is having hemoptysis. She is scheduled to have pinning of a pathologic right humeral fracture in the next day or 2. JAKE TOTH DO Oct 01, 2016 11:29
--- NOTE | 2016-10-01 11:30 | Progress Note-Hospitalist ---
Progress Note HPI/CC on Admission CC: Metastatic cancer, left lung mass HPI: This is a 65 yoWF pt being treated by Dr. Mercedes for left lung mass and metastatic cancer Dr. Mercedes Review: Pt has a huge left lung mass. 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 Pt denies coughing a lot. Pt denies ambulating Physical exam stable Pt has been tolerating her pain Pt has had BMs Pt was informed that Dr. Mercedes is taking care of her, but I will be here over the weekend to continue her care. Scribed by Callie Her under the direct supervision of Dr. Lu. Progress Notes/Assess & Plan Date Seen 10/01/16 Time Seen by Provider: 10:30 Admission Dx/Process Assessment: Severe pneumonia with complete white out on x-ray History of cancer now with new primary biopsy results pending Severe debility and weakness Diagonsis/Assessment & Plan Pt had repeat CXR and left lung appears improved but effusion is moderate and she is having more dyspnea so will have Dr Alexis consult to see if we need a thoracentesis or monitoring given her poor prognosis Still weak and I ordered PT to evaluate and treat DC planned for tomorrow but have consulted SW to support this patient's needs Bowels moving Pain is controlled on the PO meds no fever, vital signs stable, pleasant, frail, pale, flat affect, improved Regular rate and rhythm, clear to auscultation bilaterally upper lobes but decreased significantly bilateral lower lobe on left No edema Assessment: Severe LLL pneumonia with complete white out on x-ray and completing abx but now pleural effusion with dyspnea is requiring general surgery evaluation likely malignant effusion History of cancer now with new primary biopsy that appears to be primary squamous all the lung but additional staining is needed on top of the breast cancer that she has been treated for previously Severe debility and weakness Bone mets on bone scan Hyponatremia Hypokalemia Plan: Continue abx Cefepime Poor prognosis DNR Check CXR in am Replace potassium Appreciate Dr Alexis consultation for possible thoracentesis Home O2 evaluation VIOLETA LU DO Oct 01, 2016 11:30
--- NOTE | 2016-10-01 12:29 | Diagnostic Imaging Report ---
EXAMINATION: PA and lateral chest is compared to prior study from September 27, 2016. INDICATION: Pneumonia. FINDINGS: On the previous examination, there was near complete whiteout demonstrated at the left lung. There is now more aeration demonstrated within the upper aspect of the left lung with persistent dense consolidation at the left base and overall diffuse increased density compatible with left-sided pleural fluid and left upper lobe consolidation versus mass. The right lung demonstrates chronic interstitial changes but is clear. Mediastinal shift to the left is compatible with left-sided pulmonary volume loss. There are surgical clips at the level of the left axilla. There has been previous right proximal humeral fixation. Lytic lesion within the humeral shaft is again noted. Abnormal sclerosis within the proximal left humerus could be on a neoplastic basis or related to prior trauma. There is a lower thoracic compression fracture. IMPRESSION: 1. There has been some improvement in aeration of the left lung compared to the prior examination though there is continued dense consolidation present at the left base and the overall diffusely increased density throughout the left chest is compatible with significant ongoing left-sided pleural fluid and left upper lobe consolidation versus a mass. 2. The right lung is clear 3. There is a lytic lesion within the right humeral shaft and there has been intramedullary jeannine fixation of the right humerus. Sclerosis associated with the proximal left humerus could reflect a neoplastic process or prior trauma. There is an unchanged T12 compression fracture. Dictated by: Dictated on workstation # [id number]
[2016-10-01 15:20] VITALS: BP 102/57
[2016-10-01] MEDS: MIRTAZAPINE 15 MG (REMERON) TAB PO SCH (20:49)
[2016-10-02] VITALS: BP 114/71
[2016-10-02] MEDS: RT-ALBUTEROL/IPRATROPIUM 3 ML (DUONEB) VIAL INH SCH ×3 (01:41→11:13)
[2016-10-02] MEDS: LEVOTHYROXINE 50 MCG (LEVOTHROID) TAB PO SCH (05:44)
[2016-10-02 05:58] LABS: BASOPHILS % (AUTO) 0 % (0-10); EOSINOPHILS # (AUTO) 0.1 10^3/uL (0.0-0.3); EOSINOPHILS % (AUTO) 1 % (0-10); LYMPHOCYTES # (AUTO) 1.6 X 10^3 (1.0-4.0); LYMPHOCYTES % (AUTO) 13 % (12-44); MEAN CORPUSCULAR HEMOGLOBIN 29 PG (25-34); MEAN CORPUSCULAR HGB CONC 32 G/DL (32-36); MEAN CORPUSCULAR VOLUME 91 FL (80-99); MEAN PLATELET VOLUME 9.7 FL (7.4-10.4); MONOCYTES # (AUTO) 1.2 X 10^3 (0.0-1.0); MONOCYTES % (AUTO) 10 % (0-12); NEUTROPHILS # (AUTO) 9.1 X 10^3 (1.8-7.8); NEUTROPHILS % (AUTO) 76 % (42-75); PLATELET COUNT 373 10^3/uL (130-400); RED BLOOD COUNT 3.26 10^6/uL (4.35-5.85); WHITE BLOOD COUNT 12.1 10^3/uL (4.3-11.0)
[2016-10-02 06:36] LABS: ALANINE AMINOTRANSFERASE 36 U/L (0-55); ALBUMIN 2.3 GM/DL (3.2-4.5); ANION GAP 10 MMOL/L (5-14); ASPARTATE AMINO TRANSFERASE 36 U/L (5-34); BILIRUBIN,TOTAL 0.2 MG/DL (0.1-1.0); BLOOD UREA NITROGEN 12 MG/DL (7-18); BUN/CREATININE RATIO 22; CALCIUM 11.5 MG/DL (8.5-10.1); CARBON DIOXIDE 26 MMOL/L (21-32); CHLORIDE 100 MMOL/L (98-107); CREATININE SERUM 0.54 MG/DL (0.60-1.30); GFR ESTIMATED > 60; GLUCOSE 86 MG/DL (70-105); POTASSIUM 3.7 MMOL/L (3.6-5.0); SODIUM 136 MMOL/L (135-145); TOTAL PROTEIN 5.4 GM/DL (6.4-8.2)
[2016-10-02 08:11] VITALS: BP 119/69
[2016-10-02] MEDS: SENNA W/DOCUSATE (SENOKOT S) TABLET PO SCH (09:16)
[2016-10-02] MEDS: MULTIVIT W/MINERALS TAB (THERAGRAN M) PO SCH (09:16)
[2016-10-02] MEDS: KCL 10 MEQ TAB (MICRO K) PO SCH ×2 (09:16→12:16)
[2016-10-02] MEDS: CEFEPIME INJECTION 2,000 MG in NS (IVPB) 50 ML IV SCH (09:16)
--- NOTE | 2016-10-02 09:59 | Physical Therapy Evaluation ---
PT Evaluation-General Medical Diagnosis Admission Date Sep 25, 2016 at 22:15 Medical Diagnosis: metastatic cancer Onset Date: Sep 25, 2016 Therapy Diagnosis Therapy Diagnosis: debility Height/Weight Height (Feet): 5 Height (Inches): 3.00 Weight (Pounds): 105 Weight (Ounces): 0.0 Precautions Precautions/Isolations: Fall Prevention, Standard Precautions Referral Physician: Hoda Reason for Referral: Evaluation/Treatment Medical History Pertinent Medical History: Hypothroidism, Smoking Additional Medical History breast cancer x 6 yrs with no follow up with oncology Current History to ED with right UE pain and edema/mass bone mets pathological humeral fracture Reviewed History: Yes Social History Home: Single Level Current Living Status: Other Family Prior/Core FIM Prior Level of Function Functional [place] Measure 0=Not Assessed/NA 4=Minimal Assistance 1=Total Assistance 5=Supervision or Setup 2=Maximal Assistance 6=Modified [place] 3=Moderate Assistance 7=Complete [place] Bed Mobility: 7 Transfers (B,C,W/C) (FIM): 7 Gait: 7 PT Evaluation-Current Subjective Patient is reluctant to participate with PT. States she wants to go home. Pain Numeric Pain Scale: 8 Location: Right Location Body Site: Arm Pain Description: Acute Objective Patient Orientation: Normal For Age Problem Solving: Fair Attachments: Oxygen, IV removed O2 at 930 to check SAO2 for home use; SAO2 decreased to 76% on RA in 2 minutes. O2 4L NC placed on patient with recovery to 90% after 2 minutes and deep breathing exercises ROM/Strength ROM Lower Extremities bilateral LE WNL Strenght Lower Extremities right knee flexion/extension 3/5; hip flexion 3/5; ankle dorsi/plantarflexion 3/ 5 left knee flexion/extension 3/5; hip flexion 3/5; ankle dorsi/plantarflexion 3/5 Integumentary/Posture Integumentary refer to nursing notes Bowel Incontinence: No Bladder Incontinence: No Posture WNL Neuromuscular (Tone, Coordination, Reflexes) diminished coordination due to weakness Sensory Vision: Functional Hearing: Functional Sensation Right Lower Extremit: Intact Sensation Left Lower Extremity: Intact Transfers Functional [place] Measure 0=Not Assessed/NA 4=Minimal Assistance 1=Total Assistance 5=Supervision or Setup 2=Maximal Assistance 6=Modified [place] 3=Moderate Assistance 7=Complete [place] Transfers (B, C, W/C) (FIM): 5 Scootin Rollin Supine to/from Sit: 5 Sit to/from Stand: 5 Gait Mode of Locomotion: Walk Anticipated Mode of Locomotion: Both Gait (FIM): 1 Distance (FIM): 1=up to 49 ft Distance: 20' x 2 Gait Level of Assist: 4 Gait Persons Needed: 1 Gait Assistive Device: None Comments/Gait Description close CGA to SBA with gait belt in place for safety patient states she will not use a cane at home; possible w/c use for safety for home use Balance Sitting Static: Normal Sitting Dynamic: Normal Standing Static: Fair Standing Dynamic: Fair Assessment/Needs 65 y.o. female, will benefit from short term skilled PT to address functional strength and mobility to improve current LOF and to safely return to home with family at maximum LOF. Patient would benefit from home O2 and w/c for safe function. Rehab Potential: Guarded (metastatic cancer) PT Budget Report Clerk Goals Longterm Goals PT Longterm Goals Time Frame: Oct 06, 2016 Transfers (B,C,W/C) (FIM): 6 Gait (FIM): 2 Gait distance (FIM): 7=494-73 ft Distance: 75' Gait Level of Assist: 5 Gait Assistive Device: None, Cane Single Point PT Plan Problem List Problem List: Activity Tolerance, Functional Strength, Safety, Balance, Gait, Transfer, Bed Mobility Treatment/Plan Treatment Plan: Continue Plan of Care Treatment Plan: Bed Mobility, Education, Functional Activity [place], Functional Strength, Gait, Safety, Therapeutic Exercise, Transfers Treatment Duration: Oct 06, 2016 # of days/week 5 Visits Per Week: 5 Pt/Family Agrees w/Plan: Yes Safety Risks/Education Patient Education: Safety Issues Teaching Recipient: Patient Teaching Methods: Discussion Response to Teaching: Reinforcement Needed Discharge Recommendations Therapy D/C Recommendations: Home w/ Family Support Equpiment Recommendations-D/C: Straight Cane, Manual Wheelchair Time/GCodes Time In: 926 Time Out: 946 Total Billed Treatment Time: 20 Total Billed Treatment 1 visit EVMod 20 min SHILOH LIGHT PT Oct 02, 2016 09:59
[2016-10-02] MEDS ORDERED: MORP100S3 PO (10:39)
[2016-10-02] MEDS ORDERED: MORPHINE (10:39)
--- NOTE | 2016-10-02 11:29 | Progress Note-Hospitalist ---
Standard Progress Note Progress Notes/Assess & Plan Date Seen 10/02/16 Time Seen by Provider: 11:24 Diagnosis Assessment: Severe pneumonia with complete white out on x-ray History of cancer now with new primary biopsy results pending Severe debility and weakness Assess & Plan/Chief Complaint The patient's a 65-year-old white female whom I had seen during her previous admission. She had returned after a fracture of the right humerus which proved to be pathologic. Chest studies had shown a large mass on the left and a virtual white out of the lung parenchyma. She is now ready for discharge and arrangements are being made. She will require home oxygen and this has been ordered. She states that she is comfortable but has shortness of breath and is very weak. Physical exam: She has a rather blank stare. Lungs show dullness on the left and distant breath sounds on the right. CV is regular. Her right arm is in a sling. Impression: Large left lung mass pathology pending. 2.pathologic fracture right humerus. 3.COPD/hypoxia Plan: Discharged today with home O2. Other medications and treatments are as in the discharge summary she is to see Dr. Mercedes at the cancer clinic on of this week Labs Laboratory Tests 10/02/16 05:25 JOSE DAIGLE MD Oct 02, 2016 11:29
[2016-10-02] MEDS: HYDROcodone/APAP 5 MG/325 MG (LORTAB) TAB PO PRN (12:00)
--- NOTE | 2016-10-02 12:54 | Occupational Therapy Eval ---
OT Evaluation-General/PLF Medical Diagnosis Admission Date Sep 25, 2016 at 22:15 Medical Diagnosis: metastatic cancer Onset Date: Sep 25, 2016 Therapy Diagnosis Therapy Diagnosis: decreased self care skills Height/Weight Height (Feet): 5 Height (Inches): 3.00 Weight (Pounds): 105 Weight (Ounces): 0.0 Precautions Precautions/Isolations: Fall Prevention, Standard Precautions Safety Interventions: Bed Exit Alarm, Reorient-Attempt, Reorient-PRN Referral Physician: Hoda Medical History Pertinent Medical History: Breast CA S/P Mastectomy, GERD, Hypothroidism, Smoking Additional Medical History compression fractures, chronic back pain, Current History Pt had pathological fracture of right humerus. Is now s/p surgical intervention. Social History Home: Single Level Current Living Status: Other Family (Pt states children will be staying with her at all times when she is discharged.) Entry Into Home: Stairs With Railing Steps Into Home: 4 ADL-Prior Level of Function ADL PLOF Comments Pt states she is normally independent with self care and mobility. Was not using any assistive devices for mobility. Pt states she does the housework when she can and children assist as needed. DME/Equipment: Bath Chair, Grab Bars, Tub/Shower Drive Self: Yes OT Current Status Subjective Pt in bed, agrees to therapy. Pt reports pain in right shoulder, requests pain medication. RN notified. Mental Status/Objective Patient Orientation: Person, Place Attachments: Oxygen Current Glasses/Contacts: Yes Hearing Aids: No Hand Dominance: Left Upper Extremity ROM Left shoulder mildly decreased. Pt reports secondary to prior injury and arthritis. Remainder of left UE grossly WFL Right shoulder not assessed at this time. Arm is in sling. Pt demonstrates ability to flex/extend fingers and wrist ADL-Treatment ADL-Current Pt declined to sit EOB or complete ADLs, states "I've been getting up since four this morning." Pt states she recently returned to bed and wants to stay there. UE assessment completed with pt in bed. Education provided regarding home safety and ADL and techniques for ADL completion. Pt states understanding of education, states family will be with her and will assist as needed. Pt has no questions or concerns at this time, denied further needs. Pt resting in bed with needs met after session. Functional [place] Measure 0=Not Assessed/NA 4=Minimal Assistance 1=Total Assistance 5=Supervision or Setup 2=Maximal Assistance 6=Modified [place] 3=Moderate Assistance 7=Complete IndependenceIRFPAI Quality Coding Scale 6 Independent with activity with or without an assistive device 5 Patient requires set up or clean up by helper. Patient completes activity by themselves 4 Supervision or touching assist (CGA). [place] provide cues , steadying assist 3 The helper provides less than half the effort to complete the activity 2 The helper provides more than half the effort to complete the activity 1 Dependent. The helper does all the effort to complete an activity 7 Patient refused to complete or attempt activity 9 The patient did not perform the activity before the current illness or injury 88 Not attempted due to Medical conditions or safety concerns Eating (FIM): 5 (Pt drinks from cup with set up. Pt states she was able to feed herself breakfast after set up.) Education OT Patient Education: Rehab process, Safety issues Teaching Recipient: Patient Teaching Methods: Discussion Response to Teaching: Verbalize Understanding, Reinforcement Needed OT Short Term Goals Short Term Goals 1=Demonstrate adherence to instructed precautions during ADL tasks. 2=Patient will verbalize/demonstrate understanding of assistive devices/ modifications for ADL. 3=Patient will improve strength/tolerance for activity to enable patient to perform ADL's. OT Mannequin Maker Goals Mannequin Maker Goals Time Frame: Oct 09, 2016 Grooming(FIM): 5 Upper Body Dressing(FIM): 4 Lower Body Dressing(FIM): 4 Toileting(FIM): 5 Toilet/Commode Transfer(FIM): 5 Additional Goals: 1-Demonstrate ADL Tasks, 2-Verbalize Understanding, 3- ImproveStrength/[place] 1=Demonstrate adherence to instructed precautions during ADL tasks. 2=Patient will verbalize/demonstrate understanding of assistive devices/ modifications for ADL. 3=Patient will improve strength/tolerance for activity to enable patient to perform ADL's. OT Education/Plan Problem List/Assessment Assessment: Decreased Activ Tolerance, Decreased UE Strength, Dependent Transfers, Impaired Self-Care Skills Pt to benefit from skilled OT intervention for ADL training, transfers, and home safety education to maximize level of function and allow safe discharge plan. Discharge Recommendations Plan/Recommendations: Continue POC Treatment Plan/Plan of Care Treatment,Training & Education: Yes Patient would benefit from OT for education, treatment and training to promote independence in ADL's, mobility, safety and/or upper extremity function for ADL' s. Plan of Care: ADL Retraining, Functional Mobility, UE Funct Exercise/Act Treatment Duration: Oct 09, 2016 # of days/week 5 Visits Per Week: 5 Rehab Potential: Guarded (metastatic cancer) Time/GCodes Start Time: 11:33 Stop Time: 11:53 Total Time Billed (hr/min): 20 Billed Treatment Time 1 visit, EVM(20minutes) GLADYS VIEYRA OT Oct 02, 2016 12:54
[2016-10-02 14:05] VITALS: BP 119/69
== END 2016-10-02 14:05 | disposition home health service (06) | DRG 477 ==
LOC: EDUNIT# 19:51 → ER 19:54 → UNDOADMIN 22:15 → 4TH 22:15
PROVIDERS: ADMIT Internal Medicine Hematology & Oncology; ATTEND Internal Medicine Hematology & Oncology
PROC: 0BBG3ZX Excision of Left Upper Lung Lobe, Percutaneous Approach, Diagnostic (ICD-10-PCS; 2016-09-26)
PROC: 0PBC0ZX Excision of Right Humeral Head, Open Approach, Diagnostic (ICD-10-PCS; 2016-09-28)
PROC: 0PHC04Z Insertion of Internal Fixation Device into Right Humeral Head, Open Approach (ICD-10-PCS; principal; 2016-09-28 13:29)
DX: M84.421A Pathological fracture, right humerus, initial encounter for fracture (principal); C79.51 Secondary malignant neoplasm of bone; J18.9 Pneumonia, unspecified organism; E87.1 Hypo-osmolality and hyponatremia; J91.0 Malignant pleural effusion; C34.92 Malignant neoplasm of unspecified part of left bronchus or lung; R74.8 Abnormal levels of other serum enzymes; Z66 Do not resuscitate; E87.8 Other disorders of electrolyte and fluid balance, not elsewhere classified; C50.912 Malignant neoplasm of unspecified site of left female breast; Z87.891 Personal history of nicotine dependence; K21.9 Gastro-esophageal reflux disease without esophagitis; E03.9 Hypothyroidism, unspecified; Z90.13 Acquired absence of bilateral breasts and nipples; Z92.3 Personal history of irradiation; Z92.21 Personal history of antineoplastic chemotherapy; G89.3 Neoplasm related pain (acute) (chronic); E83.52 Hypercalcemia; K59.00 Constipation, unspecified; M48.54XA Collapsed vertebra, not elsewhere classified, thoracic region, initial encounter for fracture; D63.0 Anemia in neoplastic disease; E87.6 Hypokalemia; J44.9 Chronic obstructive pulmonary disease, unspecified; R09.02 Hypoxemia
CPT/HCPCS: 29105; 36415; 71010; 71020; 71035; 71270; 72157; 72158; 73060; 74170; 77012; 78306; 80048; 80053; 83605; 85025; 85610; 85730; 87040; 87070; 87081; 87088; 87205; 94640; 94664; 94760; 94761; 96374; 96376

== ENCOUNTER 2016-10-05 14:45 | Outpatient (RCR) | payer OTHER ==
[~2016-10-05 14:45] MED LIST changes: +HYDR-3812; +LEVO50TA6 PO; +MIRT15TA6 PO; +MORP100S3 PO; +MORPHINE; +OXYC-471 PO
[2016-10-05 15:15] LABS: BASOPHILS % (AUTO) 0 % (0-10); EOSINOPHILS # (AUTO) 0.1 10^3/uL (0.0-0.3); EOSINOPHILS % (AUTO) 1 % (0-10); LYMPHOCYTES # (AUTO) 1.8 X 10^3 (1.0-4.0); LYMPHOCYTES % (AUTO) 14 % (12-44); MEAN CORPUSCULAR HEMOGLOBIN 28 PG (25-34); MEAN CORPUSCULAR HGB CONC 31 G/DL (32-36); MEAN CORPUSCULAR VOLUME 92 FL (80-99); MONOCYTES # (AUTO) 1.2 X 10^3 (0.0-1.0); MONOCYTES % (AUTO) 9 % (0-12); NEUTROPHILS # (AUTO) 9.7 X 10^3 (1.8-7.8); NEUTROPHILS % (AUTO) 76 % (42-75); PLATELET COUNT 428 10^3/uL (130-400); RED BLOOD COUNT 3.31 10^6/uL (4.35-5.85); RED CELL DISTRIBUTION WIDTH 14.5 % (10.0-14.5); WHITE BLOOD COUNT 12.8 10^3/uL (4.3-11.0)
[2016-10-05 16:21] LABS: ALANINE AMINOTRANSFERASE 25 U/L (0-55); ALBUMIN 2.6 GM/DL (3.2-4.5); ANION GAP 7 MMOL/L (5-14); ASPARTATE AMINO TRANSFERASE 30 U/L (5-34); BILIRUBIN,TOTAL 0.3 MG/DL (0.1-1.0); BLOOD UREA NITROGEN 16 MG/DL (7-18); BUN/CREATININE RATIO 23; CARBON DIOXIDE 31 MMOL/L (21-32); CHLORIDE 99 MMOL/L (98-107); CREATININE SERUM 0.71 MG/DL (0.60-1.30); GFR ESTIMATED > 60; GLUCOSE 84 MG/DL (70-105); POTASSIUM 3.4 MMOL/L (3.6-5.0); SODIUM 137 MMOL/L (135-145); TOTAL PROTEIN 5.9 GM/DL (6.4-8.2)
[2016-10-05 16:31] LABS: CALCIUM 13.5 MG/DL (8.5-10.1)
== END 2016-12-30 | disposition home or self-care (01) ==
LOC: ONC 14:45
PROVIDERS: ATTEND Internal Medicine Hematology & Oncology
DX: C50.812 Malignant neoplasm of overlapping sites of left female breast (principal); C34.92 Malignant neoplasm of unspecified part of left bronchus or lung; C79.51 Secondary malignant neoplasm of bone; D63.0 Anemia in neoplastic disease; K21.9 Gastro-esophageal reflux disease without esophagitis; E03.9 Hypothyroidism, unspecified; J44.9 Chronic obstructive pulmonary disease, unspecified; F17.210 Nicotine dependence, cigarettes, uncomplicated; M19.90 Unspecified osteoarthritis, unspecified site; Z17.0 Estrogen receptor positive status [ER+]; Z90.13 Acquired absence of bilateral breasts and nipples; Z79.811 Long term (current) use of aromatase inhibitors; Z80.41 Family history of malignant neoplasm of ovary
CPT/HCPCS: 36415; 80053; 85025; 86300; 99213

== ENCOUNTER 2016-10-05 16:42 | Inpatient (IN) | payer OTHER ==
[~2016-10-05] VITALS: Ht 160 cm; Wt 48.6 kg
[2016-10-05] MEDS ORDERED: NS IV 1000 ML 1,000 ML IV SCH (17:06)
[2016-10-05] MEDS ORDERED: BISACODYL 10 MG SUPP (DULCOLAX) PR PRN (17:15)
[2016-10-05] MEDS ORDERED: ONDANSETRON 4 MG/2 ML (SDV) Z0FRAN IV PRN (17:15)
[2016-10-05] MEDS ORDERED: PAMIDRONATE INJECTION 60 MG in NS (IVPB) 250 ML IV ONE (17:30)
[2016-10-05] MEDS ORDERED: CATHETER FLUSH 10 ML SYR IV PRN (17:30)
[2016-10-05 17:57] VITALS: BP 110/67
--- NOTE | 2016-10-05 18:10 | History & Physicial ---
History of Present Illness History of Present Illness Reason for visit/HPI Romy Jessica is a 65 year old lady who was recently diagnosed with metastatic adenocarcinoma of lung with squamous features. She was recently discharged on by another covering physician after having been admitted with a pathologic fracture. Bone scan during that admission showed not only the right humeral area of metastatic involvement, but also increased uptake in T11/T12, right femur, skull and L5. Family describes some mental status changes noted more since discharge. Appetite has been poor. Pain has been controlled with Oxycodone. She was offered hospice management versus active treatment and patient wants to be treated. She was seen in clinic today where labs were drawn and showed a serum calcium of 13.5 with an albumin of 2.6 ( Corrected Calcium of 14.62). She is admitted for treatment of severe hypercalcemia (corrected calcium >14). Date of Admission Oct 05, 2016 at 17:05 Date Seen by Provider: Oct 05, 2016 Time Seen by Provider: 16:00 I consulted on this patient on 10/05/16 18:10 Attending Physician Handy Alcaraz MD Admitting Physician Jacqueline Mendieta MD Consult Allergies and Home Medications Allergies Coded Allergies: No Known Drug Allergies (Unverified , 10/05/09) Home Medications Levothyroxine Sodium 50 Mcg Tablet, 50 MCG PO DAILY, (Reported) Mirtazapine 15 Mg Tablet, 15 MG PO HS, (Reported) Morphine Sulfate 100 Mg/5 Ml Solution, 2 MG PO Q2H PRN for PAIN, #30 Prescribed by: JOSE DAIGLE on 10/02/16 1039 Multivitamins 1 Tab Tablet, 1 TAB PO DAILY, (Reported) Oxycodone HCl/Acetaminophen 1 Each Tablet, 1 TAB PO Q4H PRN for PAIN-MODERATE, ( Reported) Past Sgjyozc-Gaebwt-Tysljb Hx Patient Social History Alcohol Use: Denies Use Recreational Drug Use: No Smoking Status: Former Smoker Type Used: Cigarettes 2nd Hand Smoke Exposure: Yes Physical Abuse Screen: Yes Sexual Abuse: No Recent Hopitalizations: No Immunizations Up To Date Tetanus Booster (TDap): Unknown Seasonal Allergies Seasonal Allergies: No Surgeries HX Surgeries: Yes (BILATERAL MASTECTOMY; LEFT TOE REMOVAL) Surgeries: Appendectomy, Breast, Orthopedic Respiratory Hx Respiratory Disorders: Yes Respiratory Disorders: COPD, Pneumonia Cardiovascular Hx Cardiovascular Disorders: No Neurological Hx Neurological Disorders: No 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 System Hx 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 Disorders: No Genitourinary Hx Genitourinary Disorders: No Gastrointestinal Hx Gastrointestinal Disorders: Yes Gastrointestinal Disorders: Gastroesophageal Reflux Musculoskeletal Hx Musculoskeletal Disorders: Yes (COMPRESSION FRACTURES) Musculoskeletal Disorders: Chronic Back Pain, Fractures Endocrine Hx Endocrine Disorders: Yes Endocrine Disorders: Hypothyroidsim HEENT HX ENT Disorders: Yes Cancer Hx Cancer: Yes (BREAST CANCER DX 2009--S/P BILATERAL MASTECTOMY, CHEMO AND RADIATION) Cancer: Breast Psychosocial Hx Psychiatric Problems: No Integumentary HX Skin/Integumentary Disorder: No Blood Transfusions Hx Blood Disorders: No Family Medical History Significant Family History: Cancer Family Hx: FH: brain cancer G8 BROTHER G8 SISTER FH: liver cancer G8 SISTER FH: lung cancer 19 FATHER 19 MOTHER G8 BROTHER FH: skin cancer Constitutional: see HPI, malaise, weakness, weight loss EENTM: other (2cm cystic lesion right lateral frontal skull.) Respiratory: short of breath Musculoskeletal: back pain Physical Exam Vital Signs Vital Sign - Last 12Hours 10/05/16 17:57 Temp 99.0 Pulse 112 Resp 20 B/P (MAP) 110/67 Pulse Ox 98 O2 Delivery Nasal Cannula O2 Flow Rate 4.00 Capillary Refill : General Appearance: Cachetic HEENT: PERRL/EOMI Neck: Full Range of Motion, Non Tender Respiratory: Decreased Breath Sounds Cardiovascular: Regular Rate, Rhythm Rectal: Deferred Back: No CVA Tenderness, No Vertebral Tenderness Extremity: Non Tender, No Calf Tenderness, No Pedal Edema, Swelling, Other ( Swellling right hand) Neurologic/Psychiatric: Alert Lymphatic: No No Adenopathy, No Axilla Node Tender (L), No Axilla Node Tender ( R), No Inguinal Node Tender (L), No Inguinal Node Tender (R), No Other Comments Calcium 13.5 albumin 2.5 on outpatient labs; Laboratory Tests 10/05/16 20:21 Assessment/Plan Assessment and Plan 1. Hypercalcemia of Malignancy a. Administer aggressive fluid replacement as tolerated (add Lasix if needed after patient is volume replete) b. Give Pamidronate 60mg IV 2. 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 MRI Brain b. PET scan as outpatient 3. History of Stage IIIC Breast Cancer diagnosed 2009 4. Hypokalemia - Replace potassium and monitor; 5. Anemia of Cancer 6. Reactive Leukocytosis and Thrombocytosis Status Post recent surgery and recent treatment of pneumonia 7. History of Tobaccoism--quit smoking 2 months ago 8. Former heavy alcohol intake 9. DVT prophylaxis--check MRI brain prior to starting in patient with metastatic lung cancer Problems: Clinical Quality Measures DVT/VTE Risk/Contraindication: Risk Factor Score Per Nursin RFS Level Per Nursing on Admit: 4+=Very High Contraindications-Pharm: Other *list below* Other: Metastatic Lung Cancer--check MRI brain and if negative will add Lovenox; DVT/VTE Prophylaxis Comfirm.Dx Pharmacological not ordered: Cancer-Active HANDY ALCARAZ MD Oct 05, 2016 18:10
[2016-10-05] MEDS: oxyCODONE/APAP 5/325MG (PERCOCET 5) TABLET PO PRN (18:38)
[2016-10-05 19:25] VITALS: BP 126/67
[2016-10-05] MEDS: NS IV 1000 ML 1,000 ML IV SCH (20:05)
[2016-10-05] MEDS: POTASSIUM CL 10MEQ/50ML IVPB 50 ML IV SCH ×3 (20:12→23:05)
[2016-10-05 20:30] LABS: BASOPHILS % (AUTO) 0 % (0-10); EOSINOPHILS # (AUTO) 0.1 10^3/uL (0.0-0.3); EOSINOPHILS % (AUTO) 1 % (0-10); LYMPHOCYTES # (AUTO) 1.5 X 10^3 (1.0-4.0); LYMPHOCYTES % (AUTO) 12 % (12-44); MEAN CORPUSCULAR HEMOGLOBIN 29 PG (25-34); MEAN CORPUSCULAR HGB CONC 32 G/DL (32-36); MEAN CORPUSCULAR VOLUME 92 FL (80-99); MEAN PLATELET VOLUME 9.3 FL (7.4-10.4); MONOCYTES # (AUTO) 1.1 X 10^3 (0.0-1.0); MONOCYTES % (AUTO) 9 % (0-12); NEUTROPHILS # (AUTO) 10.2 X 10^3 (1.8-7.8); NEUTROPHILS % (AUTO) 78 % (42-75); PLATELET COUNT 394 10^3/uL (130-400); RED BLOOD COUNT 3.13 10^6/uL (4.35-5.85); RED CELL DISTRIBUTION WIDTH 14.1 % (10.0-14.5)
[2016-10-05] MEDS: FAMOTIDINE 20MG/2ML IV (PEPCID) IV SCH (20:37)
[2016-10-05] MEDS: MIRTAZAPINE 15 MG (REMERON) TAB PO SCH (20:37)
[2016-10-05 20:48] LABS: ALANINE AMINOTRANSFERASE 23 U/L (0-55); ALBUMIN 2.5 GM/DL (3.2-4.5); ANION GAP 10 MMOL/L (5-14); ASPARTATE AMINO TRANSFERASE 25 U/L (5-34); BILIRUBIN,TOTAL 0.3 MG/DL (0.1-1.0); BLOOD UREA NITROGEN 16 MG/DL (7-18); BUN/CREATININE RATIO 24; CARBON DIOXIDE 27 MMOL/L (21-32); CHLORIDE 101 MMOL/L (98-107); CREATININE SERUM 0.66 MG/DL (0.60-1.30); GFR ESTIMATED > 60; GLUCOSE 129 MG/DL (70-105); SODIUM 138 MMOL/L (135-145); TOTAL PROTEIN 5.6 GM/DL (6.4-8.2)
[2016-10-05 20:53] LABS: CALCIUM 13.1 MG/DL (8.5-10.1)
[2016-10-05] MEDS ORDERED: NON-FORMULARY MEDICATION 1 EA EA (Mirtazapine 15 MG) PO SCH (21:00)
--- NOTE | 2016-10-05 22:28 | Diagnostic Imaging Report ---
INDICATION: Recent pneumonia. EXAMINATION: Two-view chest, 10/05/2016. COMPARISON: 10/01/2016. FINDINGS: Two views of the chest demonstrates diffuse infiltrate throughout the left mid and upper lung. Underlying airspace opacities could be better aerated lung. There is an effusion at the left lung base. There is loss of volume throughout the left hemithorax. The right lung demonstrates emphysematous disease. A density in the right midlung is noted and stable from previous. Postoperative change of right shoulder. IMPRESSION: 1. Volume loss of left hemithorax, likely due to atelectasis although superimposed infiltrates are also noted. Underlying mass is not excluded. 2. Left effusion with other chronic changes stable from previous. Dictated by: Dictated on workstation # [id number]
[2016-10-05 23:50] VITALS: BP 129/67
[2016-10-06] MEDS: NS IV 1000 ML 1,000 ML IV SCH ×2 (02:05→07:59)
[2016-10-06 04:00] VITALS: BP 124/61
[2016-10-06] MEDS: oxyCODONE/APAP 5/325MG (PERCOCET 5) TABLET PO PRN ×3 (04:08→20:19)
[2016-10-06 05:44] LABS: BASOPHILS % (AUTO) 0 % (0-10); EOSINOPHILS # (AUTO) 0.1 10^3/uL (0.0-0.3); EOSINOPHILS % (AUTO) 1 % (0-10); LYMPHOCYTES # (AUTO) 1.3 X 10^3 (1.0-4.0); LYMPHOCYTES % (AUTO) 11 % (12-44); MEAN CORPUSCULAR HEMOGLOBIN 29 PG (25-34); MEAN CORPUSCULAR HGB CONC 31 G/DL (32-36); MEAN CORPUSCULAR VOLUME 92 FL (80-99); MEAN PLATELET VOLUME 9.3 FL (7.4-10.4); MONOCYTES # (AUTO) 1.2 X 10^3 (0.0-1.0); MONOCYTES % (AUTO) 9 % (0-12); NEUTROPHILS # (AUTO) 10.1 X 10^3 (1.8-7.8); NEUTROPHILS % (AUTO) 79 % (42-75); PLATELET COUNT 378 10^3/uL (130-400); RED CELL DISTRIBUTION WIDTH 14.1 % (10.0-14.5); WHITE BLOOD COUNT 12.7 10^3/uL (4.3-11.0)
[2016-10-06 06:03] LABS: ANION GAP 8 MMOL/L (5-14); BLOOD UREA NITROGEN 12 MG/DL (7-18); BUN/CREATININE RATIO 21; CALCIUM 12.6 MG/DL (8.5-10.1); CARBON DIOXIDE 24 MMOL/L (21-32); CHLORIDE 107 MMOL/L (98-107); CREATININE SERUM 0.58 MG/DL (0.60-1.30); GFR ESTIMATED > 60; GLUCOSE 88 MG/DL (70-105); MAGNESIUM 1.2 MG/DL (1.8-2.4); POTASSIUM 3.3 MMOL/L (3.6-5.0); SODIUM 139 MMOL/L (135-145)
[2016-10-06] MEDS: LEVOTHYROXINE 50 MCG (LEVOTHROID) TAB PO SCH (06:12)
[2016-10-06] MEDS: MULTIVIT W/MINERALS TAB (THERAGRAN M) PO SCH (06:12)
[2016-10-06] MEDS: FAMOTIDINE 20MG/2ML IV (PEPCID) IV SCH ×2 (07:58→21:13)
[2016-10-06 08:00] VITALS: BP 127/61
--- NOTE | 2016-10-06 08:59 | Progress Note (SOAP) ---
Subjective Date Seen by Provider: Oct 06, 2016 Time Seen by Provider: 08:55 Subjective/Events-last exam Denies pain or increase in shortness of air; Patient going down for Brain MRI this morning. Objective Exam Vital Signs Date Time Temp Pulse Resp B/P (MAP) Pulse Ox O2 Delivery O2 Flow Rate FiO2 10/06/16 08:00 97.5 104 20 127/61 96 Nasal Cannula 4.00 10/06/16 06:59 Nasal Cannula 4.00 10/06/16 05:18 99.5 10/06/16 04:00 100.0 117 18 124/61 93 Nasal Cannula 4.00 10/05/16 23:50 97.6 96 22 129/67 92 Nasal Cannula 4.00 10/05/16 19:25 99.6 112 24 126/67 98 Nasal Cannula 4.00 10/05/16 18:21 98 Nasal Cannula 4.00 10/05/16 17:57 99.0 112 20 110/67 98 Nasal Cannula 4.00 I & O 10/06/16 07:00 Intake Total 1900 ml Output Total 350 ml Balance 1550 ml Capillary Refill : Less Than 3 Seconds General Appearance: No Apparent Distress, Chronically ill HEENT: PERRL/EOMI Neck: Non Tender, Supple Respiratory: Decreased Breath Sounds Cardiovascular: Regular Rate, Rhythm, No Edema, No JVD Gastrointestinal: normal bowel sounds, non tender, soft, no organomegaly Extremity: Normal Inspection, Non Tender, No Calf Tenderness Neurologic/Psychiatric: Depressed Affect Results Lab Laboratory Tests 10/05/16 20:21: White Blood Count 13.0H, Red Blood Count 3.13L, Hemoglobin 9.1L, Hematocrit 29L , Mean Corpuscular Volume 92, Mean Corpuscular Hemoglobin 29, Mean Corpuscular Hemoglobin Concent 32, Red Cell Distribution Width 14.1, Platelet Count 394, Mean Platelet Volume 9.3, Neutrophils (%) (Auto) 78H, Lymphocytes (%) (Auto) 12 , Monocytes (%) (Auto) 9, Eosinophils (%) (Auto) 1, Basophils (%) (Auto) 0, Neutrophils # (Auto) 10.2H, Lymphocytes # (Auto) 1.5, Monocytes # (Auto) 1.1H, Eosinophils # (Auto) 0.1, Basophils # (Auto) 0.0, Sodium Level 138, Potassium Level 3.0L, Chloride Level 101, Carbon Dioxide Level 27, Anion Gap 10, Blood Urea Nitrogen 16, Creatinine 0.66, Estimat Glomerular Filtration Rate > 60, BUN/ Creatinine Ratio 24, Glucose Level 129H, Calcium Level 13.1*H, Total Bilirubin 0.3, Aspartate Amino Transf (AST/SGOT) 25, Alanine Aminotransferase (ALT/SGPT) 23, Alkaline Phosphatase 111, Total Protein 5.6L, Albumin 2.5L 10/06/16 05:10: White Blood Count 12.7H, Red Blood Count 2.80L, Hemoglobin 8.0L, Hematocrit 26L , Mean Corpuscular Volume 92, Mean Corpuscular Hemoglobin 29, Mean Corpuscular Hemoglobin Concent 31L, Red Cell Distribution Width 14.1, Platelet Count 378, Mean Platelet Volume 9.3, Neutrophils (%) (Auto) 79H, Lymphocytes (%) (Auto) 11L , Monocytes (%) (Auto) 9, Eosinophils (%) (Auto) 1, Basophils (%) (Auto) 0, Neutrophils # (Auto) 10.1H, Lymphocytes # (Auto) 1.3, Monocytes # (Auto) 1.2H, Eosinophils # (Auto) 0.1, Basophils # (Auto) 0.0, Sodium Level 139, Potassium Level 3.3L, Chloride Level 107, Carbon Dioxide Level 24, Anion Gap 8, Blood Urea Nitrogen 12, Creatinine 0.58L, Estimat Glomerular Filtration Rate > 60, BUN /Creatinine Ratio 21, Glucose Level 88, Calcium Level 12.6H, Magnesium Level 1.2L Laboratory Tests 10/05/16 20:21 10/06/16 05:10 Assessment/Plan Assessment/Plan Assess & Plan/Chief Complaint 1. Hypercalcemia of Malignancy a. Administer aggressive fluid replacement as tolerated (add Lasix if needed after patient is volume replete) b. Pamidronate 60mg IV given on 10/05/16; c. continue IV hydration at slower rate; 2. 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 MRI Brain pending b. PET scan as outpatient 3. History of Stage IIIC Breast Cancer diagnosed 2009 a. CA27.29 markedly elevated although lung neoplasm and bone cancer are being interpreted as arising from a lung primary carcinoma; 4. Hypokalemia and Hypomagnesemia- Replace potassium and magnesium and monitor; 5. Anemia of Cancer 6. Reactive Leukocytosis. Thrombocytosis seen in clinic has resolved with IV hydration; Status Post recent surgery and recent treatment of pneumonia 7. History of Tobaccoism--quit smoking 2 months ago 8. Former heavy alcohol intake 9. DVT prophylaxis--check MRI brain prior to starting in patient with metastatic lung cancer Clinical Quality Measures DVT/VTE Risk/Contraindication: Risk Factor Score Per Nursin RFS Level Per Nursing on Admit: 4+=Very High Contraindications-Pharm: Other *list below* Other: Metastatic Lung Cancer--check MRI brain and if negative will add Lovenox; DVT/VTE Prophylaxis Comfirm.Dx Pharmacological not ordered: Cancer-Active HANDY ALCARAZ MD Oct 06, 2016 08:59
[2016-10-06] MEDS ORDERED: NON-FORMULARY MEDICATION 1 EA EA (Multivitamins (Multiple Vitamin) 1 TAB) PO SCH (09:00)
[2016-10-06] MEDS ORDERED: GADOBUTROL 7.5 MMOL/7.5 ML (GADAVIST) VIAL IV ONE (09:30)
[2016-10-06] MEDS: POTASSIUM CL 10MEQ/50ML IVPB 50 ML IV SCH ×5 (10:02→14:11)
[2016-10-06] MEDS: MAGNESIUM 1 GM/100 ML IVPB 100 ML IV SCH ×6 (10:06→15:15)
--- NOTE | 2016-10-06 11:52 | Diagnostic Imaging Report ---
PROCEDURE: MR imaging of the brain with and without contrast. TECHNIQUE: Multiplanar, multisequence MR imaging of the brain was performed with and without contrast. INDICATION: Lung cancer. Confusion. 4.5 ML of Gadavist is administered intravenously. FINDINGS: There is no diffusion restriction to suggest an acute infarct in the brain. There is however other diffusion abnormalities with restriction seen in multiple skull lesions that demonstrate T2 hyperintense T1 hyperintense and post contrast peripheral more complete enhancement seen in the smaller lesions compatible with skull metastasis. The largest lesion is in the right frontal region and measures 2.2 x 1.5 x 1.9 CM. These lesions do not have extension intracranially. The wesley and white matter signal in the brain is normal. There is no mass effect. No hydrocephalus. No extra-axial fluid collection is seen. Nonspecific minimal thickening of the dura is seen with no nodularity noted to suggest metastasis. The active thickening of the dura or early involvement cannot be excluded from the adjacent skull lesions. The pituitary gland is normal in size. No hypothalamic or pineal region mass. The central vascular flow-voids are grossly unremarkable. The internal auditory canals and inner ear structures appear grossly unremarkable. In the upper aspect of the left orbit there is an enhancing area suggested measuring 1.7 x 0.9 CM. This is inseparable from the adjacent normal lacrimal gland enhancement. This is not well evaluated on the axial images due to the dedicated brain imaging plain and different section thickness. This is believed to be a metastasis based on the superior orbital wall. IMPRESSION: 1. Multiple skull metastasis. 2. Enhancing lesion suggested in the upper aspect of the left orbit probably representing a metastatic lesion in the superior margin of the orbital wall. If clinically indicated, dedicated orbital CT or MRI can better evaluate. 3. The brain parenchyma demonstrate no significant abnormality. Dictated by: Dictated on workstation # [id number]
[2016-10-06 12:00] VITALS: BP 126/74
[2016-10-06] MEDS: ENOXAPARIN 30 MG/0.3 ML (LOVENOX) SYR SC SCH (12:09)
[2016-10-06 16:00] VITALS: BP 131/83
[2016-10-06] MEDS: MIRTAZAPINE 15 MG (REMERON) TAB PO SCH (21:13)
[2016-10-07] VITALS: BP 134/69
[2016-10-07 04:44] LABS: BASOPHILS % (AUTO) 0 % (0-10); EOSINOPHILS # (AUTO) 0.1 10^3/uL (0.0-0.3); EOSINOPHILS % (AUTO) 1 % (0-10); LYMPHOCYTES # (AUTO) 1.5 X 10^3 (1.0-4.0); LYMPHOCYTES % (AUTO) 9 % (12-44); MEAN CORPUSCULAR HEMOGLOBIN 28 PG (25-34); MEAN CORPUSCULAR HGB CONC 31 G/DL (32-36); MEAN CORPUSCULAR VOLUME 91 FL (80-99); MEAN PLATELET VOLUME 9.3 FL (7.4-10.4); MONOCYTES # (AUTO) 1.2 X 10^3 (0.0-1.0); MONOCYTES % (AUTO) 7 % (0-12); NEUTROPHILS # (AUTO) 13.8 X 10^3 (1.8-7.8); NEUTROPHILS % (AUTO) 83 % (42-75); PLATELET COUNT 381 10^3/uL (130-400); RED BLOOD COUNT 3.15 10^6/uL (4.35-5.85); RED CELL DISTRIBUTION WIDTH 14.1 % (10.0-14.5); WHITE BLOOD COUNT 16.6 10^3/uL (4.3-11.0)
[2016-10-07 05:20] LABS: ANION GAP 12 MMOL/L (5-14); BLOOD UREA NITROGEN 8 MG/DL (7-18); BUN/CREATININE RATIO 15; CALCIUM 11.8 MG/DL (8.5-10.1); CARBON DIOXIDE 22 MMOL/L (21-32); CHLORIDE 104 MMOL/L (98-107); CREATININE SERUM 0.54 MG/DL (0.60-1.30); GFR ESTIMATED > 60; GLUCOSE 75 MG/DL (70-105); POTASSIUM 3.1 MMOL/L (3.6-5.0); SODIUM 138 MMOL/L (135-145)
[2016-10-07 05:26] LABS: ANISOCYTOSIS SLIGHT; BAND NEUTROPHILS 1 %; BASOPHILS % (MANUAL) 0 %; EOSINOPHILS % (MANUAL) 0 %; LYMPHOCYTES % (MANUAL) 4 %; NEUTROPHILS % (MANUAL) 85 %; REACTIVE LYMPHOCYTES 2 %
[2016-10-07] MEDS: MULTIVIT W/MINERALS TAB (THERAGRAN M) PO SCH (06:36)
[2016-10-07] MEDS: LEVOTHYROXINE 50 MCG (LEVOTHROID) TAB PO SCH (06:36)
[2016-10-07 08:00] VITALS: BP 164/70
[2016-10-07] MEDS: FAMOTIDINE 20MG/2ML IV (PEPCID) IV SCH ×2 (08:57→20:33)
--- NOTE | 2016-10-07 10:21 | Progress Note-Standard ---
Standard Progress Note Progress Notes/Assess & Plan Date Seen by Provider: Oct 07, 2016 Time Seen by Provider: 10:12 Progress/Assessment & Plan 65-year-old female with recent diagnosis of metastatic non-small cell lung cancer, admitted with hypercalcemia and mental status changes. Status post treatment with the pamidronate and IV fluids with improvement in calcium level. Patient still very weak with intermittent confusion. She is eating small amounts and denied constipation. Complained of mouth being dry. She also has history of stage IIIc breast cancer diagnosed in 2009, status post surgery followed by chemoradiation and hormonal treatment stopped a year ago. She has a right frontal nodule palpable measuring at least 1.5 cm in diameter clinically. She also has mild ptosis of the left upper eyelid. MRI of the head showed the right frontal skull lesion as well as the left superior orbital enhancing lesion. She denied any visual changes today. Laboratory Tests 10/07/16 04:21: White Blood Count 16.6H, Red Blood Count 3.15L, Hemoglobin 8.8L, Hematocrit 29L , Mean Corpuscular Volume 91, Mean Corpuscular Hemoglobin 28, Mean Corpuscular Hemoglobin Concent 31L, Red Cell Distribution Width 14.1, Platelet Count 381, Mean Platelet Volume 9.3, Neutrophils (%) (Auto) 83H, Lymphocytes (%) (Auto) 9L , Monocytes (%) (Auto) 7, Eosinophils (%) (Auto) 1, Basophils (%) (Auto) 0, Neutrophils # (Auto) 13.8H, Lymphocytes # (Auto) 1.5, Monocytes # (Auto) 1.2H, Eosinophils # (Auto) 0.1, Basophils # (Auto) 0.0, Neutrophils % (Manual) 85, Lymphocytes % (Manual) 4, Monocytes % (Manual) 8, Eosinophils % (Manual) 0, Basophils % (Manual) 0, Band Neutrophils 1, Reactive Lymphocytes 2, Anisocytosis SLIGHT, Sodium Level 138, Potassium Level 3.1L, Chloride Level 104 , Carbon Dioxide Level 22, Anion Gap 12, Blood Urea Nitrogen 8, Creatinine 0.54L , Estimat Glomerular Filtration Rate > 60, BUN/Creatinine Ratio 15, Glucose Level 75, Calcium Level 11.8H MRI head showing a right frontal skull lesion as well as the left superior orbital lesion probably arising from the bone consistent with metastasis. A/P: 1. Hypercalcemia of malignancy, status post treatment with pamidronate and IV fluids with improvement. Today I will resume normal saline at 100 mL per hour continuously. 2. Metastatic non-small cell lung cancer with widespread bony metastasis, currently undergoing radiation therapy. Her performance status is poor to do any concurrent therapy. I have discussed this with her family today. If her performance status improves, she may be a candidate for palliative chemotherapy. 3. Hypokalemia, replace potassium today and recheck lab work including magnesium level tomorrow morning. 4. Her overall prognosis is guarded. INGRIS BURROUGHS Oct 07, 2016 10:21
[2016-10-07] MEDS: oxyCODONE/APAP 5/325MG (PERCOCET 5) TABLET PO PRN (11:22)
[2016-10-07] MEDS: ENOXAPARIN 30 MG/0.3 ML (LOVENOX) SYR SC SCH (11:23)
[2016-10-07] MEDS: NS W/KCL 20 MEQ/L 1,000 ML IV SCH ×2 (11:23→21:16)
[2016-10-07 15:58] VITALS: BP 127/65
[2016-10-07] MEDS: MIRTAZAPINE 15 MG (REMERON) TAB PO SCH (20:33)
[2016-10-08] VITALS: BP 134/64
[2016-10-08] MEDS: oxyCODONE/APAP 5/325MG (PERCOCET 5) TABLET PO PRN (01:05)
[2016-10-08 04:50] LABS: BASOPHILS % (AUTO) 0 % (0-10); EOSINOPHILS # (AUTO) 0.1 10^3/uL (0.0-0.3); EOSINOPHILS % (AUTO) 1 % (0-10); LYMPHOCYTES # (AUTO) 1.6 X 10^3 (1.0-4.0); LYMPHOCYTES % (AUTO) 13 % (12-44); MEAN CORPUSCULAR HEMOGLOBIN 28 PG (25-34); MEAN CORPUSCULAR HGB CONC 30 G/DL (32-36); MEAN CORPUSCULAR VOLUME 91 FL (80-99); MEAN PLATELET VOLUME 9.6 FL (7.4-10.4); MONOCYTES % (AUTO) 8 % (0-12); NEUTROPHILS # (AUTO) 9.6 X 10^3 (1.8-7.8); NEUTROPHILS % (AUTO) 78 % (42-75); PLATELET COUNT 377 10^3/uL (130-400); RED BLOOD COUNT 2.75 10^6/uL (4.35-5.85); WHITE BLOOD COUNT 12.3 10^3/uL (4.3-11.0)
[2016-10-08 05:34] LABS: ALANINE AMINOTRANSFERASE 19 U/L (0-55); ANION GAP 7 MMOL/L (5-14); ASPARTATE AMINO TRANSFERASE 26 U/L (5-34); BILIRUBIN,TOTAL 0.3 MG/DL (0.1-1.0); BLOOD UREA NITROGEN 8 MG/DL (7-18); BUN/CREATININE RATIO 16; CALCIUM 10.1 MG/DL (8.5-10.1); CARBON DIOXIDE 25 MMOL/L (21-32); CHLORIDE 107 MMOL/L (98-107); CREATININE SERUM 0.51 MG/DL (0.60-1.30); GFR ESTIMATED > 60; GLUCOSE 95 MG/DL (70-105); MAGNESIUM 1.3 MG/DL (1.8-2.4); SODIUM 139 MMOL/L (135-145); TOTAL PROTEIN 4.8 GM/DL (6.4-8.2)
[2016-10-08] MEDS: LEVOTHYROXINE 50 MCG (LEVOTHROID) TAB PO SCH (06:19)
[2016-10-08] MEDS: MULTIVIT W/MINERALS TAB (THERAGRAN M) PO SCH (06:19)
[2016-10-08] MEDS: NS W/KCL 20 MEQ/L 1,000 ML IV SCH ×2 (06:27→17:35)
[2016-10-08] MEDS: FAMOTIDINE 20MG/2ML IV (PEPCID) IV SCH ×2 (08:47→21:52)
[2016-10-08 08:53] VITALS: BP 136/73
[2016-10-08] MEDS ORDERED: NS IV 1000 ML 1,000 ML IV ONE (10:00)
--- NOTE | 2016-10-08 10:06 | Progress Note-Standard ---
Standard Progress Note Progress Notes/Assess & Plan Date Seen by Provider: Oct 08, 2016 Time Seen by Provider: 09:57 Progress/Assessment & Plan 65-year-old female with recent diagnosis of metastatic non-small cell lung cancer, admitted with hypercalcemia and mental status changes. Status post treatment with the pamidronate and IV fluids with improvement in calcium level. Patient still very weak but with less confusion today. She is eating better today. She also has history of stage IIIc breast cancer diagnosed in 2009, status post surgery followed by chemoradiation and hormonal treatment stopped a year ago. Vital Sign - Last 12Hours Date Time Temp Pulse Resp B/P (MAP) Pulse Ox O2 Delivery O2 Flow Rate FiO2 10/08/16 08:53 99.3 105 20 136/73 95 Nasal Cannula 4.00 physical examination today showed an elderly female, thin and weak appearing, awake and answering questions appropriately. HEENT normocephalic with a right frontal nodule palpable. Conjunctivae pale, mild left ptosis unchanged, oral mucosa moist. Neck supple with no JVD. No cervical, supraclavicular or axillary lymphadenopathy palpable. Lungs with diminished breath sounds bilaterally with a few scattered rhonchi. No wheezes heard. Cardio vascular exam was borderline tachycardic, regular with no murmurs. Abdomen was soft, nontender with no hepatosplenomegaly or other masses palpable. Extremities showed no edema. Laboratory Tests 10/08/16 03:48: White Blood Count 12.3H, Red Blood Count 2.75L, Hemoglobin 7.6L, Hematocrit 25L , Mean Corpuscular Volume 91, Mean Corpuscular Hemoglobin 28, Mean Corpuscular Hemoglobin Concent 30L, Red Cell Distribution Width 14.0, Platelet Count 377, Mean Platelet Volume 9.6, Neutrophils (%) (Auto) 78H, Lymphocytes (%) (Auto) 13 , Monocytes (%) (Auto) 8, Eosinophils (%) (Auto) 1, Basophils (%) (Auto) 0, Neutrophils # (Auto) 9.6H, Lymphocytes # (Auto) 1.6, Monocytes # (Auto) 1.0, Eosinophils # (Auto) 0.1, Basophils # (Auto) 0.0 10/08/16 04:08: Sodium Level 139, Potassium Level 3.0L, Chloride Level 107, Carbon Dioxide Level 25, Anion Gap 7, Blood Urea Nitrogen 8, Creatinine 0.51L, Estimat Glomerular Filtration Rate > 60, BUN/Creatinine Ratio 16, Glucose Level 95, Calcium Level 10.1, Magnesium Level 1.3L, Total Bilirubin 0.3, Aspartate Amino Transf (AST/SGOT) 26, Alanine Aminotransferase (ALT/SGPT) 19, Alkaline Phosphatase 99, Total Protein 4.8L, Albumin 2.0L A/P: 1. Hypercalcemia of malignancy, status post treatment with pamidronate and IV fluids with improvement. measured calcium 10.1 with albumin level of 2.0 and corrected calcium level of 11.7 today. Continue normal saline at 100 mL per hour continuously. 2. Metastatic non-small cell lung cancer with widespread bony metastasis, currently undergoing radiation therapy. continue. 3. Hypokalemia and hypomagnesemia, replace potassium 30 mEq and magnesium 3 g today and recheck lab work tomorrow morning. 4. Anemia most probably due to hemodilution. Type and screen and transfuse 1 unit of packed red blood cells today. Repeat CBC tomorrow. 5. Her overall prognosis is guarded. INGRIS BURROUGHS Oct 08, 2016 10:06
[2016-10-08] MEDS: POTASSIUM CL 10MEQ/50ML IVPB 50 ML IV SCH ×3 (10:54→13:59)
[2016-10-08] MEDS: MAGNESIUM 1 GM/100 ML IVPB 100 ML IV SCH ×3 (10:55→13:59)
[2016-10-08] MEDS ORDERED: ACETAMINOPHEN 500 MG TAB (TYLENOL) PO NR (11:30)
[2016-10-08] MEDS: ENOXAPARIN 30 MG/0.3 ML (LOVENOX) SYR SC SCH (13:07)
[2016-10-08 16:00] VITALS: BP 118/71
[2016-10-08 16:09] VITALS: BP 118/71
[2016-10-08 16:27] VITALS: BP 108/68
[2016-10-08 18:30] VITALS: BP 109/57
[2016-10-08] MEDS ORDERED: MAGNESIUM 1 GM/100 ML IVPB 0 ML IV ONE (18:37)
[2016-10-08] MEDS ORDERED: KCL 20 MEQ TAB (K-DUR) PO ONE (18:38)
[2016-10-08] MEDS: MIRTAZAPINE 15 MG (REMERON) TAB PO SCH (21:52)
[2016-10-09 00:25] VITALS: BP 136/72
[2016-10-09] MEDS: NS W/KCL 20 MEQ/L 1,000 ML IV SCH ×3 (00:39→22:27)
[2016-10-09] MEDS: morphine (ROXINOL) 10 MG/0.5 ML oral conc 0.5 ML PO PRN (00:56)
[2016-10-09 05:02] LABS: BASOPHILS % (AUTO) 0 % (0-10); EOSINOPHILS # (AUTO) 0.1 10^3/uL (0.0-0.3); EOSINOPHILS % (AUTO) 1 % (0-10); LYMPHOCYTES # (AUTO) 2.8 X 10^3 (1.0-4.0); LYMPHOCYTES % (AUTO) 19 % (12-44); MEAN CORPUSCULAR HEMOGLOBIN 28 PG (25-34); MEAN CORPUSCULAR HGB CONC 32 G/DL (32-36); MEAN CORPUSCULAR VOLUME 87 FL (80-99); MEAN PLATELET VOLUME 9.5 FL (7.4-10.4); MONOCYTES # (AUTO) 1.1 X 10^3 (0.0-1.0); MONOCYTES % (AUTO) 7 % (0-12); NEUTROPHILS # (AUTO) 11.1 X 10^3 (1.8-7.8); NEUTROPHILS % (AUTO) 74 % (42-75); PLATELET COUNT 389 10^3/uL (130-400); RED BLOOD COUNT 4.08 10^6/uL (4.35-5.85); RED CELL DISTRIBUTION WIDTH 14.9 % (10.0-14.5); WHITE BLOOD COUNT 15.1 10^3/uL (4.3-11.0)
[2016-10-09 05:30] LABS: ANION GAP 10 MMOL/L (5-14); BLOOD UREA NITROGEN 7 MG/DL (7-18); BUN/CREATININE RATIO 13; CALCIUM 9.8 MG/DL (8.5-10.1); CARBON DIOXIDE 22 MMOL/L (21-32); CHLORIDE 107 MMOL/L (98-107); CREATININE SERUM 0.53 MG/DL (0.60-1.30); GFR ESTIMATED > 60; GLUCOSE 106 MG/DL (70-105); MAGNESIUM 1.5 MG/DL (1.8-2.4); POTASSIUM 3.3 MMOL/L (3.6-5.0); SODIUM 139 MMOL/L (135-145)
[2016-10-09 07:45] VITALS: BP 124/64
[2016-10-09] MEDS: MULTIVIT W/MINERALS TAB (THERAGRAN M) PO SCH (07:59)
[2016-10-09] MEDS: LEVOTHYROXINE 50 MCG (LEVOTHROID) TAB PO SCH (07:59)
[2016-10-09] MEDS: oxyCODONE/APAP 5/325MG (PERCOCET 5) TABLET PO PRN ×2 (08:26→14:27)
[2016-10-09] MEDS: FAMOTIDINE 20MG/2ML IV (PEPCID) IV SCH (09:38)
[2016-10-09 12:50] VITALS: BP 124/80
[2016-10-09] MEDS ORDERED: ENOXAPARIN 40 MG/0.4 ML (LOVENOX) SYR SC SCH (13:00)
[2016-10-09 16:35] VITALS: BP 122/86
--- NOTE | 2016-10-09 16:39 | Progress Note-Standard ---
Standard Progress Note Progress Notes/Assess & Plan Date Seen by Provider: Oct 09, 2016 Time Seen by Provider: 16:34 Progress/Assessment & Plan 65-year-old female with recent diagnosis of metastatic non-small cell lung cancer, admitted with hypercalcemia and mental status changes. Status post treatment with the pamidronate and IV fluids with improvement in calcium level. Patient still weak but mental status improving. She is eating better. She has history of stage IIIc breast cancer diagnosed in 2009, status post surgery followed by chemoradiation and hormonal treatment stopped a year ago. Vital Sign - Last 12Hours Date Time Temp Pulse Resp B/P (MAP) Pulse Ox O2 Delivery O2 Flow Rate FiO2 10/09/16 14:28 99.1 10/09/16 12:50 112 20 124/80 94 Nasal Cannula 4.00 Physical examination today showed an elderly female, thin and weak appearing, awake and answering questions appropriately. HEENT normocephalic with a right frontal skull nodule palpable. Conjunctivae pink, mild left ptosis unchanged, oral mucosa moist. Neck supple with no JVD. No cervical, supraclavicular or axillary lymphadenopathy palpable. Lungs with diminished breath sounds bilaterally with a few scattered rhonchi. No wheezes heard. Cardio vascular exam was borderline tachycardic, regular with no murmurs. Abdomen was soft, nontender with no hepatosplenomegaly or other masses palpable. Extremities showed no edema. Laboratory Tests 10/09/16 04:42: White Blood Count 15.1H, Red Blood Count 4.08L, Hemoglobin 11.4#L, Hematocrit 36 , Mean Corpuscular Volume 87, Mean Corpuscular Hemoglobin 28, Mean Corpuscular Hemoglobin Concent 32, Red Cell Distribution Width 14.9H, Platelet Count 389, Mean Platelet Volume 9.5, Neutrophils (%) (Auto) 74, Lymphocytes (%) (Auto) 19, Monocytes (%) (Auto) 7, Eosinophils (%) (Auto) 1, Basophils (%) (Auto) 0, Neutrophils # (Auto) 11.1H, Lymphocytes # (Auto) 2.8, Monocytes # (Auto) 1.1H, Eosinophils # (Auto) 0.1, Basophils # (Auto) 0.0, Sodium Level 139, Potassium Level 3.3L, Chloride Level 107, Carbon Dioxide Level 22, Anion Gap 10, Blood Urea Nitrogen 7, Creatinine 0.53L, Estimat Glomerular Filtration Rate > 60, BUN/ Creatinine Ratio 13, Glucose Level 106H, Calcium Level 9.8, Magnesium Level 1.5L 10/09/16 12:56: Lab Scanned Report Transfusion Reaction Form A/P: 1. Hypercalcemia of malignancy, status post treatment with pamidronate and IV fluids with improvement. measured calcium 10.1 with albumin level of 2.0 and corrected calcium level of 11.7 today. Continue normal saline at 100 mL per hour continuously. 2. Metastatic non-small cell lung cancer with widespread bony metastasis, currently undergoing radiation therapy. continue. 3. Hypokalemia and hypomagnesemia, replace potassium 30 mEq and magnesium 3 g today and recheck lab work tomorrow morning. 4. Anemia, s/p transfusion with 1 unit of packed red blood cells. Hemoglobin level better today. Continue to monitor. 5. may need swing bed evaluation for radiation therapy and physical therapy. Dr. Mercedes will resume care tomorrow. INGRIS BURROUGHS Oct 09, 2016 16:39
[2016-10-09] MEDS: MIRTAZAPINE 15 MG (REMERON) TAB PO SCH (20:17)
[2016-10-09] MEDS ORDERED: FAMOTIDINE 20 MG (PEPCID) TABLET PO SCH (21:00)
[2016-10-10] VITALS: BP 148/81
[2016-10-10] MEDS: ACETAMINOPHEN 325 MG TABLET/CAPLET (TYLENOL) PO PRN (00:23)
--- OUTSIDE RECORDS SUMMARY | 2016-10-10 04:16 | XMS REPORT | Continuity of Care Document ---
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 08/11/2015 HANDY [...] [ER+] 01/13/2016 HANDY ALCARAZ MD, Ot Z79.811 PENITENTIARY (CURRENT) USE OF AROMATASE INH 01/13/2016 HANDY [...] [ER+] 01/13/2016 HANDY ALCARAZ MD, Ot 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 01/13/2016 HANDY [...] [ER+] 01/14/2016 HANDY ALCARAZ MD, Ot Z79.811 PENITENTIARY (CURRENT) USE OF AROMATASE INH 01/14/2016 HANDY ALCARAZ MD, Ot Z80.41 FAMILY HISTORY OF MALIGNANT NEOPLASM OF 01/14/2016 HANDY ALCARAZ MD, Ot 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 09/26/2016 HANDY ALCARAZ MD, Ot C34.92 MALIGNANT NEOPLASM OF UNSP PART OF LEFT 09/26/2016 HANDY ALCARAZ MD, Ot C79.51 SECONDARY MALIGNANT NEOPLASM OF BONE 09/26/2016 HANDY ALCARAZ MD, Ot E87.8 OTH DISORDERS OF ELECTROLYTE AND FLUID B 09/26/2016 HANDY ALCARAZ MD, Ot M84.421A PATHOLOGICAL FRACTURE, RIGHT HUMERUS, IN 09/26/2016 HANDY ALCARAZ MD, Ot R74.8 ABNORMAL LEVELS OF OTHER SERUM ENZYMES 09/26/2016 HNADY ALCARAZ MD, Ot Z85.3 PERSONAL HISTORY OF MALIGNANT NEOPLASM O 09/26/2016 HANDY ALCARAZ MD, Ot C34.92 MALIGNANT NEOPLASM OF UNSP PART OF LEFT 09/26/2016 HANDY ALCARAZ MD, Ot C79.51 SECONDARY MALIGNANT NEOPLASM OF BONE 09/26/2016 HANDY ALCARAZ MD, Ot E87.8 OTH DISORDERS OF ELECTROLYTE AND FLUID B 09/26/2016 HANDY ALCARAZ MD, Ot M84.421A PATHOLOGICAL FRACTURE, RIGHT HUMERUS, IN 09/26/2016 HANDY ALCARAZ MD, Ot R74.8 ABNORMAL LEVELS OF OTHER SERUM ENZYMES 09/26/2016 HANDY ALCARAZ MD, Ot Z85.3 PERSONAL HISTORY OF MALIGNANT NEOPLASM O 10/01/2016 HANDY ALCARAZ MD, Ot C34.92 MALIGNANT NEOPLASM OF UNSP PART OF LEFT 10/01/2016 HANDY ALCARAZ MD, Ot C79.51 SECONDARY MALIGNANT NEOPLASM OF BONE 10/01/2016 HANDY ALCARAZ MD, Ot E87.8 OTH DISORDERS OF ELECTROLYTE AND FLUID B 10/01/2016 HANDY ALCARAZ MD, Ot M84.421A PATHOLOGICAL FRACTURE, RIGHT HUMERUS, IN 10/01/2016 HANDY ALCARAZ MD, Ot R74.8 ABNORMAL LEVELS OF OTHER SERUM ENZYMES 10/01/2016 HANDY ALCARAZ MD, Ot Z85.3 PERSONAL HISTORY OF MALIGNANT NEOPLASM O 10/02/2016 HANDY ALCARAZ MD, Ot C34.92 MALIGNANT NEOPLASM OF UNSP PART OF LEFT 10/02/2016 HANDY ALCARAZ MD, Ot C79.51 SECONDARY MALIGNANT NEOPLASM OF BONE 10/02/2016 HANDY ALCARAZ MD, Ot E87.8 OTH DISORDERS OF ELECTROLYTE AND FLUID B 10/02/2016 HANDY ALCARAZ MD, Ot M84.421A PATHOLOGICAL FRACTURE, RIGHT HUMERUS, IN 10/02/2016 HANDY ALCARAZ MD, Ot R74.8 ABNORMAL LEVELS OF OTHER SERUM ENZYMES 10/02/2016 HANDY ALCARAZ MD, Ot Z85.3 PERSONAL HISTORY OF MALIGNANT NEOPLASM O 10/02/2016 HANDY ALCARAZ MD, Ot C34.92 MALIGNANT NEOPLASM OF UNSP PART OF LEFT 10/02/2016 HANDY ALCARAZ MD, Ot 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 10/02/2016 HANDY ALCARAZ MD, Ot C79.51 SECONDARY MALIGNANT NEOPLASM OF BONE 10/02/2016 HANDY ALCARAZ MD, Ot 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 10/02/2016 HANDY ALCARAZ MD, Ot E03.9 HYPOTHYROIDISM, UNSPECIFIED 10/02/2016 HANDY ALCARAZ MD, Ot E83.52 HYPERCALCEMIA 10/02/2016 HANDY ALCARAZ MD, Ot E87.1 HYPO-OSMOLALITY AND HYPONATREMIA 10/02/2016 HANDY ALCARAZ MD, Ot E87.6 HYPOKALEMIA 10/02/2016 HANDY ALCARAZ MD, Ot E87.8 [facility] DISORDERS OF ELECTROLYTE AND FLUID B 10/02/2016 HANDY ALCARAZ MD, Ot G89.3 NEOPLASM RELATED PAIN (ACUTE) (CHRONIC) 10/02/2016 HANDY ALCARAZ MD, Ot J18.9 PNEUMONIA, UNSPECIFIED ORGANISM 10/02/2016 HANDY ALCARAZ MD, Ot J44.9 CHRONIC OBSTRUCTIVE PULMONARY DISEASE, U 10/02/2016 HANDY ALCARAZ MD, Ot J91.0 MALIGNANT PLEURAL EFFUSION 10/02/2016 HANDY ALCARAZ MD, Ot K21.9 GASTRO-ESOPHAGEAL REFLUX DISEASE WITHOUT 10/02/2016 HANDY ALCARAZ MD, Ot K59.00 CONSTIPATION, UNSPECIFIED 10/02/2016 HANDY ALCARAZ MD, Ot M48.54XA COLLAPSED VERTEBRA, NEC, THORACIC REGION 10/02/2016 HANDY ALCARAZ MD, Ot M84.421A PATHOLOGICAL FRACTURE, RIGHT HUMERUS, IN 10/02/2016 HANDY ALCARAZ MD, Ot R09.02 HYPOXEMIA 10/02/2016 HANDY ALCARAZ MD, Ot R74.8 ABNORMAL LEVELS OF OTHER SERUM ENZYMES 10/02/2016 HANDY ALCARAZ MD, Ot Z66 DO NOT RESUSCITATE 10/02/2016 HANDY ALCARAZ MD, Ot Z85.3 PERSONAL HISTORY OF MALIGNANT NEOPLASM O 10/02/2016 HANDY ALCARAZ MD, Ot Z87.891 PERSONAL HISTORY OF NICOTINE DEPENDENCE 10/02/2016 HANDY ALCARAZ MD, Ot 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 10/02/2016 HANDY ALCARAZ MD, Ot Z92.21 PERSONAL HISTORY OF ANTINEOPLASTIC CHEMO 10/02/2016 HANDY ALCARAZ MD, Ot Z92.3 PERSONAL HISTORY OF IRRADIATION 10/06/2016 HANDY ACLARAZ MD, Ot C34.92 MALIGNANT NEOPLASM OF UNSP PART OF LEFT 10/06/2016 HANDY ALCARAZ MD, Ot 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 10/06/2016 HANDY ALCARAZ MD, Ot C79.51 SECONDARY MALIGNANT NEOPLASM OF BONE 10/06/2016 HANDY ALCARAZ MD, Ot 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 10/06/2016 HANDY ALCARAZ MD, Ot E03.9 HYPOTHYROIDISM, UNSPECIFIED 10/06/2016 HANDY ALCARAZ MD, Ot F17.210 NICOTINE DEPENDENCE, CIGARETTES, UNCOMPL 10/06/2016 HANDY ALCARAZ MD, Ot J44.9 CHRONIC OBSTRUCTIVE PULMONARY DISEASE, U 10/06/2016 HANDY ALCARAZ MD, Ot K21.9 GASTRO-ESOPHAGEAL REFLUX DISEASE WITHOUT 10/06/2016 HANDY ALCARAZ MD, Ot M19.90 UNSPECIFIED OSTEOARTHRITIS, UNSPECIFIED 10/06/2016 HANDY ALCARAZ MD, Ot Z17.0 ESTROGEN RECEPTOR POSITIVE STATUS [ER+] 10/06/2016 HANDY ALCARAZ MD, Ot 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 10/06/2016 HANDY ALCARAZ MD, Ot Z80.41 FAMILY HISTORY OF MALIGNANT NEOPLASM OF 10/06/2016 HANDY ALCARAZ MD, Ot 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 10/06/2016 HANDY ALCARAZ MD, Ot C34.92 MALIGNANT NEOPLASM OF UNSP PART OF LEFT 10/06/2016 HANDY ALCARAZ MD, Ot C79.51 SECONDARY MALIGNANT NEOPLASM OF BONE 10/06/2016 HANDY ALCARAZ MD, Ot 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 10/06/2016 HANDY ALCARAZ MD, Ot E03.9 HYPOTHYROIDISM, UNSPECIFIED 10/06/2016 HANDY ALCARAZ MD, Ot E83.42 HYPOMAGNESEMIA 10/06/2016 HANDY ALCARAZ MD, Ot E83.52 HYPERCALCEMIA 10/06/2016 HANDY ALCARAZ MD, Ot E87.6 HYPOKALEMIA 10/06/2016 HANDY ALCARAZ MD, Ot J44.9 CHRONIC OBSTRUCTIVE PULMONARY DISEASE, U 10/06/2016 HANDY ALCARAZ MD, Ot K21.9 GASTRO-ESOPHAGEAL REFLUX DISEASE WITHOUT 10/06/2016 HANDY ALCARAZ MD, Ot Z66 DO NOT RESUSCITATE 10/06/2016 HANDY ALCARAZ MD, Ot Z85.3 PERSONAL HISTORY OF MALIGNANT NEOPLASM O 10/06/2016 HANDY ALCARAZ MD, Ot Z87.891 PERSONAL HISTORY OF NICOTINE DEPENDENCE 10/06/2016 HANDY ALCARAZ MD, Ot 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 10/06/2016 HANDY ALCARAZ MD, Ot C34.92 MALIGNANT NEOPLASM OF UNSP PART OF LEFT 10/06/2016 HANDY ALCARAZ MD, Ot C79.51 SECONDARY MALIGNANT NEOPLASM OF BONE 10/06/2016 HANDY ALCARAZ MD, Ot 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 10/06/2016 HANDY ALCARAZ MD, Ot E03.9 HYPOTHYROIDISM, UNSPECIFIED 10/06/2016 HANDY ALCARAZ MD, Ot E83.42 HYPOMAGNESEMIA 10/06/2016 HANDY ALCARAZ MD, Ot E83.52 HYPERCALCEMIA 10/06/2016 HANDY ALCARAZ MD, Ot E87.6 HYPOKALEMIA 10/06/2016 HANDY ALCARAZ MD, Ot J44.9 CHRONIC OBSTRUCTIVE PULMONARY DISEASE, U 10/06/2016 HANDY ALCARAZ MD, Ot K21.9 GASTRO-ESOPHAGEAL REFLUX DISEASE WITHOUT 10/06/2016 HANDY ALCARAZ MD, Ot Z66 DO NOT RESUSCITATE 10/06/2016 HANDY ALCARAZ MD, Ot Z85.3 PERSONAL HISTORY OF MALIGNANT NEOPLASM O 10/06/2016 HANDY ALCARAZ MD, Ot Z87.891 PERSONAL HISTORY OF NICOTINE DEPENDENCE 10/06/2016 HANDY ALCARAZ MD, Ot 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 Procedures Code Description Performed By Performed On [id number] EXCISION OF LEFT UPPER LUNG LOBE, PERC A 09/26/2016 [id number] EXCISION OF RIGHT HUMERAL HEAD, OPEN RICK 09/28/2016 [id number] INSERTION OF INT FIX INTO R HUMERAL HEAD 09/28/2016 Results Test Result Range Complete blood count (CBC) with automated white blood cell (WBC) differential - 09/25/16 21:15 Blood leukocytes automated count (number/volume) 10.6 10*3/ uL 4.3-11.0 Blood erythrocytes automated count (number/volume) 3.75 10*6 /uL 4.35-5.85 Venous blood hemoglobin measurement (mass/volume) 10.9 g/dL 11.5-16.0 Blood hematocrit (volume fraction) 34 % 35-52 Automated erythrocyte mean corpuscular volume 90 [foz_us] 80-99 Automated erythrocyte mean corpuscular hemoglobin (mass per erythrocyte) 29 pg 25-34 Automated erythrocyte mean corpuscular hemoglobin concentration measurement ( mass/volume) 32 g/dL 32-36 Automated erythrocyte distribution width ratio 13.7 % 10.0-14.5 Automated blood platelet count (count/volume) 459 10*3/uL 130-400 Automated blood platelet mean volume measurement 9.6 [foz_us ] 7.4-10.4 Automated blood neutrophils/100 leukocytes 68 % 42-75 Automated blood lymphocytes/100 leukocytes 21 % 12-44 Blood monocytes/100 leukocytes 10 % 0-12 Automated blood eosinophils/100 leukocytes 1 % 0-10 Automated blood basophils/100 leukocytes 0 % 0-10 Blood neutrophils automated count (number/volume) 7.2 10*3 1.8-7.8 Blood lymphocytes automated count (number/volume) 2.2 10*3 1.0-4.0 Blood monocytes automated count (number/volume) 1.1 10*3 0.0-1.0 Automated eosinophil count 0.1 10*3/uL 0.0-0.3 Automated blood basophil count (count/volume) 0.0 10*3/uL 0.0-0.1 PT panel in platelet poor plasma by coagulation assay - 09/25/16 21:15 Prothrombin time (PT) in platelet poor plasma by coagulation assay 13.9 s 12.2-14.7 INR in platelet poor plasma or blood by coagulation assay 1.1 0.8-1.4 Activated partial thromboplastin time (aPTT) in platelet poor plasma bycoagulation assay - 09/25/16 21:15 Activated partial thromboplastin time (aPTT) in platelet poor plasma bycoagulation assay 29 s 24-35 Comprehensive metabolic panel - 09/25/16 21:15 Serum or plasma sodium measurement (moles/volume) 132 mmol/ L 135-145 Serum or plasma potassium measurement (moles/volume) 3.5 mmol/L 3.6-5.0 Serum or plasma chloride measurement (moles/volume) 94 mmol/ L 98-107 Carbon dioxide 26 mmol/L 21-32 Serum or plasma anion gap determination (moles/volume) 12 mmol/L 5-14 Serum or plasma urea nitrogen measurement (mass/volume) 15 mg/dL 7-18 Serum or plasma creatinine measurement (mass/volume) 0.65 mg /dL 0.60-1.30 Serum or plasma urea nitrogen/creatinine mass ratio 23 0-20 Serum or plasma creatinine measurement with calculation of estimated glomerular filtration rate > NRG Serum or plasma glucose measurement (mass/volume) 110 mg/dL 70-105 Serum or plasma calcium measurement (mass/volume) 10.8 mg/ dL 8.5-10.1 Serum or plasma total bilirubin measurement (mass/volume) 0.2 mg/dL 0.1-1.0 Serum or plasma alkaline phosphatase measurement (enzymatic activity/volume) 148 U/L 40-136 Serum or plasma aspartate aminotransferase measurement (enzymatic activity/ volume) 57 U/L 5-34 Serum or plasma alanine aminotransferase measurement (enzymatic activity/volume ) 68 U/L 0-55 Serum or plasma protein measurement (mass/volume) 6.2 g/dL 6.4-8.2 Serum or plasma albumin measurement (mass/volume) 2.7 g/dL 3.2-4.5 Complete blood count (CBC) with automated white blood cell (WBC) differential - 09/26/16 05:55 Blood leukocytes automated count (number/volume) 11.6 10*3/ uL 4.3-11.0 Blood erythrocytes automated count (number/volume) 3.50 10*6 /uL 4.35-5.85 Venous blood hemoglobin measurement (mass/volume) 10.1 g/dL 11.5-16.0 Blood hematocrit (volume fraction) 32 % 35-52 Automated erythrocyte mean corpuscular volume 91 [foz_us] 80-99 Automated erythrocyte mean corpuscular hemoglobin (mass per erythrocyte) 29 pg 25-34 Automated erythrocyte mean corpuscular hemoglobin concentration measurement ( mass/volume) 32 g/dL 32-36 Automated erythrocyte distribution width ratio 13.6 % 10.0-14.5 Automated blood platelet count (count/volume) 357 10*3/uL 130-400 Automated blood platelet mean volume measurement 9.6 [foz_us ] 7.4-10.4 Automated blood neutrophils/100 leukocytes 72 % 42-75 Automated blood lymphocytes/100 leukocytes 16 % 12-44 Blood monocytes/100 leukocytes 10 % 0-12 Automated blood eosinophils/100 leukocytes 1 % 0-10 Automated blood basophils/100 leukocytes 0 % 0-10 Blood neutrophils automated count (number/volume) 8.4 10*3 1.8-7.8 Blood lymphocytes automated count (number/volume) 1.9 10*3 1.0-4.0 Blood monocytes automated count (number/volume) 1.2 10*3 0.0-1.0 Automated eosinophil count 0.1 10*3/uL 0.0-0.3 Automated blood basophil count (count/volume) 0.0 10*3/uL 0.0-0.1 Comprehensive metabolic panel - 09/26/16 05:55 Serum or plasma sodium measurement (moles/volume) 132 mmol/ L 135-145 Serum or plasma potassium measurement (moles/volume) 3.5 mmol/L 3.6-5.0 Serum or plasma chloride measurement (moles/volume) 98 mmol/ L 98-107 Carbon dioxide 23 mmol/L 21-32 Serum or plasma anion gap determination (moles/volume) 11 mmol/L 5-14 Serum or plasma urea nitrogen measurement (mass/volume) 11 mg/dL 7-18 Serum or plasma creatinine measurement (mass/volume) 0.54 mg /dL 0.60-1.30 Serum or plasma urea nitrogen/creatinine mass ratio 20 0-20 Serum or plasma creatinine measurement with calculation of estimated glomerular filtration rate > NRG Serum or plasma glucose measurement (mass/volume) 93 mg/dL 70-105 Serum or plasma calcium measurement (mass/volume) 10.5 mg/ dL 8.5-10.1 Serum or plasma total bilirubin measurement (mass/volume) 0.3 mg/dL 0.1-1.0 Serum or plasma alkaline phosphatase measurement (enzymatic activity/volume) 118 U/L 40-136 Serum or plasma aspartate aminotransferase measurement (enzymatic activity/ volume) 40 U/L 5-34 Serum or plasma alanine aminotransferase measurement (enzymatic activity/volume ) 52 U/L 0-55 Serum or plasma protein measurement (mass/volume) 5.3 g/dL 6.4-8.2 Serum or plasma albumin measurement (mass/volume) 2.4 g/dL 3.2-4.5 Bacterial urine culture - 09/26/16 19:00 Bacterial urine culture NG NRG Bacterial blood culture - 09/26/16 22:05 Bacterial blood culture NG NRG Blood lactic acid measurement (moles/volume) - 09/26/16 22:15 Blood lactic acid measurement (moles/volume) 1.13 mmol/L 0.50-2.00 Whole blood basic metabolic panel - 09/26/16 22:15 Serum or plasma sodium measurement (moles/volume) 132 mmol/ L 135-145 Serum or plasma potassium measurement (moles/volume) 3.6 mmol/L 3.6-5.0 Serum or plasma chloride measurement (moles/volume) 101 mmol /L 98-107 Carbon dioxide 23 mmol/L 21-32 Serum or plasma anion gap determination (moles/volume) 8 mmol/L 5-14 Serum or plasma urea nitrogen measurement (mass/volume) 9 mg /dL 7-18 Serum or plasma creatinine measurement (mass/volume) 0.56 mg /dL 0.60-1.30 Serum or plasma urea nitrogen/creatinine mass ratio 16 NRG Serum or plasma creatinine measurement with calculation of estimated glomerular filtration rate > NRG Serum or plasma glucose measurement (mass/volume) 119 mg/dL 70-105 Serum or plasma calcium measurement (mass/volume) 10.0 mg/ dL 8.5-10.1 Bacterial blood culture - 09/26/16 22:15 Bacterial blood culture NG NRG Complete blood count (CBC) with automated white blood cell (WBC) differential - 09/27/16 05:34 Blood leukocytes automated count (number/volume) 13.2 10*3/ uL 4.3-11.0 Blood erythrocytes automated count (number/volume) 2.91 10*6 /uL 4.35-5.85 Venous blood hemoglobin measurement (mass/volume) 8.4 g/dL 11.5-16.0 Blood hematocrit (volume fraction) 27 % 35-52 Automated erythrocyte mean corpuscular volume 92 [foz_us] 80-99 Automated erythrocyte mean corpuscular hemoglobin (mass per erythrocyte) 29 pg 25-34 Automated erythrocyte mean corpuscular hemoglobin concentration measurement ( mass/volume) 31 g/dL 32-36 Automated erythrocyte distribution width ratio 13.6 % 10.0-14.5 Automated blood platelet count (count/volume) 402 10*3/uL 130-400 Automated blood platelet mean volume measurement 9.8 [foz_us ] 7.4-10.4 Automated blood neutrophils/100 leukocytes 73 % 42-75 Automated blood lymphocytes/100 leukocytes 17 % 12-44 Blood monocytes/100 leukocytes 9 % 0-12 Automated blood eosinophils/100 leukocytes 1 % 0-10 Automated blood basophils/100 leukocytes 0 % 0-10 Blood neutrophils automated count (number/volume) 9.7 10*3 1.8-7.8 Blood lymphocytes automated count (number/volume) 2.3 10*3 1.0-4.0 Blood monocytes automated count (number/volume) 1.2 10*3 0.0-1.0 Automated eosinophil count 0.1 10*3/uL 0.0-0.3 Automated blood basophil count (count/volume) 0.0 10*3/uL 0.0-0.1 Whole blood basic metabolic panel - 09/27/16 05:35 Serum or plasma sodium measurement (moles/volume) 134 mmol/ L 135-145 Serum or plasma potassium measurement (moles/volume) 3.5 mmol/L 3.6-5.0 Serum or plasma chloride measurement (moles/volume) 104 mmol /L 98-107 Carbon dioxide 22 mmol/L 21-32 Serum or plasma anion gap determination (moles/volume) 8 mmol/L 5-14 Serum or plasma urea nitrogen measurement (mass/volume) 8 mg /dL 7-18 Serum or plasma creatinine measurement (mass/volume) 0.51 mg /dL 0.60-1.30 Serum or plasma urea nitrogen/creatinine mass ratio 16 NRG Serum or plasma creatinine measurement with calculation of estimated glomerular filtration rate > NRG Serum or plasma glucose measurement (mass/volume) 86 mg/dL 70-105 Serum or plasma calcium measurement (mass/volume) 10.0 mg/ dL 8.5-10.1 Sputum Gram stain - 09/27/16 12:00 GRAM STAIN SPUTUM RARE GRAM POSITIVE COCCI NRG Bacterial sputum culture - 09/27/16 12:00 Bacterial sputum culture NORMAL NRG Complete blood count (CBC) with automated white blood cell (WBC) differential - 09/28/16 05:25 Blood leukocytes automated count (number/volume) 11.6 10*3/ uL 4.3-11.0 Blood erythrocytes automated count (number/volume) 3.17 10*6 /uL 4.35-5.85 Venous blood hemoglobin measurement (mass/volume) 9.1 g/dL 11.5-16.0 Blood hematocrit (volume fraction) 28 % 35-52 Automated erythrocyte mean corpuscular volume 89 [foz_us] 80-99 Automated erythrocyte mean corpuscular hemoglobin (mass per erythrocyte) 29 pg 25-34 Automated erythrocyte mean corpuscular hemoglobin concentration measurement ( mass/volume) 32 g/dL 32-36 Automated erythrocyte distribution width ratio 13.5 % 10.0-14.5 Automated blood platelet count (count/volume) 395 10*3/uL 130-400 Automated blood platelet mean volume measurement 9.9 [foz_us ] 7.4-10.4 Automated blood neutrophils/100 leukocytes 72 % 42-75 Automated blood lymphocytes/100 leukocytes 17 % 12-44 Blood monocytes/100 leukocytes 10 % 0-12 Automated blood eosinophils/100 leukocytes 1 % 0-10 Automated blood basophils/100 leukocytes 0 % 0-10 Blood neutrophils automated count (number/volume) 8.3 10*3 1.8-7.8 Blood lymphocytes automated count (number/volume) 2.0 10*3 1.0-4.0 Blood monocytes automated count (number/volume) 1.2 10*3 0.0-1.0 Automated eosinophil count 0.1 10*3/uL 0.0-0.3 Automated blood basophil count (count/volume) 0.0 10*3/uL 0.0-0.1 Whole blood basic metabolic panel - 09/28/16 05:25 Serum or plasma sodium measurement (moles/volume) 132 mmol/ L 135-145 Serum or plasma potassium measurement (moles/volume) 2.9 mmol/L 3.6-5.0 Serum or plasma chloride measurement (moles/volume) 101 mmol /L 98-107 Carbon dioxide 21 mmol/L 21-32 Serum or plasma anion gap determination (moles/volume) 10 mmol/L 5-14 Serum or plasma urea nitrogen measurement (mass/volume) 8 mg /dL 7-18 Serum or plasma creatinine measurement (mass/volume) 0.48 mg /dL 0.60-1.30 Serum or plasma urea nitrogen/creatinine mass ratio 17 NRG Serum or plasma creatinine measurement with calculation of estimated glomerular filtration rate > NRG Serum or plasma glucose measurement (mass/volume) 95 mg/dL 70-105 Serum or plasma calcium measurement (mass/volume) 10.5 mg/ dL 8.5-10.1 Methicillin resistant Staphylococcus aureus (MRSA) screening culture - 08:48 Methicillin resistant Staphylococcus aureus (MRSA) screening culture NEG NRG Complete blood count (CBC) with automated white blood cell (WBC) differential - 09/29/16 04:13 Blood leukocytes automated count (number/volume) 10.6 10*3/ uL 4.3-11.0 Blood erythrocytes automated count (number/volume) 3.18 10*6 /uL 4.35-5.85 Venous blood hemoglobin measurement (mass/volume) 9.1 g/dL 11.5-16.0 Blood hematocrit (volume fraction) 29 % 35-52 Automated erythrocyte mean corpuscular volume 90 [foz_us] 80-99 Automated erythrocyte mean corpuscular hemoglobin (mass per erythrocyte) 29 pg 25-34 Automated erythrocyte mean corpuscular hemoglobin concentration measurement ( mass/volume) 32 g/dL 32-36 Automated erythrocyte distribution width ratio 13.5 % 10.0-14.5 Automated blood platelet count (count/volume) 415 10*3/uL 130-400 Automated blood platelet mean volume measurement 9.7 [foz_us ] 7.4-10.4 Automated blood neutrophils/100 leukocytes 82 % 42-75 Automated blood lymphocytes/100 leukocytes 11 % 12-44 Blood monocytes/100 leukocytes 7 % 0-12 Automated blood eosinophils/100 leukocytes 0 % 0-10 Automated blood basophils/100 leukocytes 0 % 0-10 Blood neutrophils automated count (number/volume) 8.6 10*3 1.8-7.8 Blood lymphocytes automated count (number/volume) 1.1 10*3 1.0-4.0 Blood monocytes automated count (number/volume) 0.8 10*3 0.0-1.0 Automated eosinophil count 0.0 10*3/uL 0.0-0.3 Automated blood basophil count (count/volume) 0.0 10*3/uL 0.0-0.1 Whole blood basic metabolic panel - 09/29/16 04:13 Serum or plasma sodium measurement (moles/volume) 132 mmol/ L 135-145 Serum or plasma potassium measurement (moles/volume) 3.9 mmol/L 3.6-5.0 Serum or plasma chloride measurement (moles/volume) 101 mmol /L 98-107 Carbon dioxide 23 mmol/L 21-32 Serum or plasma anion gap determination (moles/volume) 8 mmol/L 5-14 Serum or plasma urea nitrogen measurement (mass/volume) 14 mg/dL 7-18 Serum or plasma creatinine measurement (mass/volume) 0.56 mg /dL 0.60-1.30 Serum or plasma urea nitrogen/creatinine mass ratio 25 NRG Serum or plasma creatinine measurement with calculation of estimated glomerular filtration rate > NRG Serum or plasma glucose measurement (mass/volume) 126 mg/dL 70-105 Serum or plasma calcium measurement (mass/volume) 11.1 mg/ dL 8.5-10.1 Complete blood count (CBC) with automated white blood cell (WBC) differential - 09/30/16 05:10 Blood leukocytes automated count (number/volume) 9.2 10*3/ uL 4.3-11.0 Blood erythrocytes automated count (number/volume) 2.94 10*6 /uL 4.35-5.85 Venous blood hemoglobin measurement (mass/volume) 8.3 g/dL 11.5-16.0 Blood hematocrit (volume fraction) 26 % 35-52 Automated erythrocyte mean corpuscular volume 90 [foz_us] 80-99 Automated erythrocyte mean corpuscular hemoglobin (mass per erythrocyte) 28 pg 25-34 Automated erythrocyte mean corpuscular hemoglobin concentration measurement ( mass/volume) 31 g/dL 32-36 Automated erythrocyte distribution width ratio 13.6 % 10.0-14.5 Automated blood platelet count (count/volume) 373 10*3/uL 130-400 Automated blood platelet mean volume measurement 9.6 [foz_us ] 7.4-10.4 Automated blood neutrophils/100 leukocytes 74 % 42-75 Automated blood lymphocytes/100 leukocytes 16 % 12-44 Blood monocytes/100 leukocytes 8 % 0-12 Automated blood eosinophils/100 leukocytes 1 % 0-10 Automated blood basophils/100 leukocytes 0 % 0-10 Blood neutrophils automated count (number/volume) 6.8 10*3 1.8-7.8 Blood lymphocytes automated count (number/volume) 1.5 10*3 1.0-4.0 Blood monocytes automated count (number/volume) 0.8 10*3 0.0-1.0 Automated eosinophil count 0.1 10*3/uL 0.0-0.3 Automated blood basophil count (count/volume) 0.0 10*3/uL 0.0-0.1 Whole blood basic metabolic panel - 09/30/16 05:10 Serum or plasma sodium measurement (moles/volume) 134 mmol/ L 135-145 Serum or plasma potassium measurement (moles/volume) 3.2 mmol/L 3.6-5.0 Serum or plasma chloride measurement (moles/volume) 104 mmol /L 98-107 Carbon dioxide 22 mmol/L 21-32 Serum or plasma anion gap determination (moles/volume) 8 mmol/L 5-14 Serum or plasma urea nitrogen measurement (mass/volume) 18 mg/dL 7-18 Serum or plasma creatinine measurement (mass/volume) 0.53 mg /dL 0.60-1.30 Serum or plasma urea nitrogen/creatinine mass ratio 34 NRG Serum or plasma creatinine measurement with calculation of estimated glomerular filtration rate > NRG Serum or plasma glucose measurement (mass/volume) 93 mg/dL 70-105 Serum or plasma calcium measurement (mass/volume) 10.6 mg/ dL 8.5-10.1 Complete blood count (CBC) with automated white blood cell (WBC) differential - 10/02/16 05:25 Blood leukocytes automated count (number/volume) 12.1 10*3/ uL 4.3-11.0 Blood erythrocytes automated count (number/volume) 3.26 10*6 /uL 4.35-5.85 Venous blood hemoglobin measurement (mass/volume) 9.3 g/dL 11.5-16.0 Blood hematocrit (volume fraction) 30 % 35-52 Automated erythrocyte mean corpuscular volume 91 [foz_us] 80-99 Automated erythrocyte mean corpuscular hemoglobin (mass per erythrocyte) 29 pg 25-34 Automated erythrocyte mean corpuscular hemoglobin concentration measurement ( mass/volume) 32 g/dL 32-36 Automated erythrocyte distribution width ratio 14.0 % 10.0-14.5 Automated blood platelet count (count/volume) 373 10*3/uL 130-400 Automated blood platelet mean volume measurement 9.7 [foz_us ] 7.4-10.4 Automated blood neutrophils/100 leukocytes 76 % 42-75 Automated blood lymphocytes/100 leukocytes 13 % 12-44 Blood monocytes/100 leukocytes 10 % 0-12 Automated blood eosinophils/100 leukocytes 1 % 0-10 Automated blood basophils/100 leukocytes 0 % 0-10 Blood neutrophils automated count (number/volume) 9.1 10*3 1.8-7.8 Blood lymphocytes automated count (number/volume) 1.6 10*3 1.0-4.0 Blood monocytes automated count (number/volume) 1.2 10*3 0.0-1.0 Automated eosinophil count 0.1 10*3/uL 0.0-0.3 Automated blood basophil count (count/volume) 0.0 10*3/uL 0.0-0.1 Comprehensive metabolic panel - 10/02/16 05:25 Serum or plasma sodium measurement (moles/volume) 136 mmol/ L 135-145 Serum or plasma potassium measurement (moles/volume) 3.7 mmol/L 3.6-5.0 Serum or plasma chloride measurement (moles/volume) 100 mmol /L 98-107 Carbon dioxide 26 mmol/L 21-32 Serum or plasma anion gap determination (moles/volume) 10 mmol/L 5-14 Serum or plasma urea nitrogen measurement (mass/volume) 12 mg/dL 7-18 Serum or plasma creatinine measurement (mass/volume) 0.54 mg /dL 0.60-1.30 Serum or plasma urea nitrogen/creatinine mass ratio 22 NRG Serum or plasma creatinine measurement with calculation of estimated glomerular filtration rate > NRG Serum or plasma glucose measurement (mass/volume) 86 mg/dL 70-105 Serum or plasma calcium measurement (mass/volume) 11.5 mg/ dL 8.5-10.1 Serum or plasma total bilirubin measurement (mass/volume) 0.2 mg/dL 0.1-1.0 Serum or plasma alkaline phosphatase measurement (enzymatic activity/volume) 116 U/L 40-136 Serum or plasma aspartate aminotransferase measurement (enzymatic activity/ volume) 36 U/L 5-34 Serum or plasma alanine aminotransferase measurement (enzymatic activity/volume ) 36 U/L 0-55 Serum or plasma protein measurement (mass/volume) 5.4 g/dL 6.4-8.2 Serum or plasma albumin measurement (mass/volume) 2.3 g/dL 3.2-4.5 Complete blood count (CBC) with automated white blood cell (WBC) differential - 10/05/16 20:21 Blood leukocytes automated count (number/volume) 13.0 10*3/ uL 4.3-11.0 Blood erythrocytes automated count (number/volume) 3.13 10*6 /uL 4.35-5.85 Venous blood hemoglobin measurement (mass/volume) 9.1 g/dL 11.5-16.0 Blood hematocrit (volume fraction) 29 % 35-52 Automated erythrocyte mean corpuscular volume 92 [foz_us] 80-99 Automated erythrocyte mean corpuscular hemoglobin (mass per erythrocyte) 29 pg 25-34 Automated erythrocyte mean corpuscular hemoglobin concentration measurement ( mass/volume) 32 g/dL 32-36 Automated erythrocyte distribution width ratio 14.1 % 10.0-14.5 Automated blood platelet count (count/volume) 394 10*3/uL 130-400 Automated blood platelet mean volume measurement 9.3 [foz_us ] 7.4-10.4 Automated blood neutrophils/100 leukocytes 78 % 42-75 Automated blood lymphocytes/100 leukocytes 12 % 12-44 Blood monocytes/100 leukocytes 9 % 0-12 Automated blood eosinophils/100 leukocytes 1 % 0-10 Automated blood basophils/100 leukocytes 0 % 0-10 Blood neutrophils automated count (number/volume) 10.2 10*3 1.8-7.8 Blood lymphocytes automated count (number/volume) 1.5 10*3 1.0-4.0 Blood monocytes automated count (number/volume) 1.1 10*3 0.0-1.0 Automated eosinophil count 0.1 10*3/uL 0.0-0.3 Automated blood basophil count (count/volume) 0.0 10*3/uL 0.0-0.1 Comprehensive metabolic panel - 10/05/16 20:21 Serum or plasma sodium measurement (moles/volume) 138 mmol/ L 135-145 Serum or plasma potassium measurement (moles/volume) 3.0 mmol/L 3.6-5.0 Serum or plasma chloride measurement (moles/volume) 101 mmol /L 98-107 Carbon dioxide 27 mmol/L 21-32 Serum or plasma anion gap determination (moles/volume) 10 mmol/L 5-14 Serum or plasma urea nitrogen measurement (mass/volume) 16 mg/dL 7-18 Serum or plasma creatinine measurement (mass/volume) 0.66 mg /dL 0.60-1.30 Serum or plasma urea nitrogen/creatinine mass ratio 24 NRG Serum or plasma creatinine measurement with calculation of estimated glomerular filtration rate > NRG Serum or plasma glucose measurement (mass/volume) 129 mg/dL 70-105 Serum or plasma calcium measurement (mass/volume) 13.1 mg/ dL 8.5-10.1 Serum or plasma total bilirubin measurement (mass/volume) 0.3 mg/dL 0.1-1.0 Serum or plasma alkaline phosphatase measurement (enzymatic activity/volume) 111 U/L 40-136 Serum or plasma aspartate aminotransferase measurement (enzymatic activity/ volume) 25 U/L 5-34 Serum or plasma alanine aminotransferase measurement (enzymatic activity/volume ) 23 U/L 0-55 Serum or plasma protein measurement (mass/volume) 5.6 g/dL 6.4-8.2 Serum or plasma albumin measurement (mass/volume) 2.5 g/dL 3.2-4.5 Complete blood count (CBC) with automated white blood cell (WBC) differential - 10/06/16 05:10 Blood leukocytes automated count (number/volume) 12.7 10*3/ uL 4.3-11.0 Blood erythrocytes automated count (number/volume) 2.80 10*6 /uL 4.35-5.85 Venous blood hemoglobin measurement (mass/volume) 8.0 g/dL 11.5-16.0 Blood hematocrit (volume fraction) 26 % 35-52 Automated erythrocyte mean corpuscular volume 92 [foz_us] 80-99 Automated erythrocyte mean corpuscular hemoglobin (mass per erythrocyte) 29 pg 25-34 Automated erythrocyte mean corpuscular hemoglobin concentration measurement ( mass/volume) 31 g/dL 32-36 Automated erythrocyte distribution width ratio 14.1 % 10.0-14.5 Automated blood platelet count (count/volume) 378 10*3/uL 130-400 Automated blood platelet mean volume measurement 9.3 [foz_us ] 7.4-10.4 Automated blood neutrophils/100 leukocytes 79 % 42-75 Automated blood lymphocytes/100 leukocytes 11 % 12-44 Blood monocytes/100 leukocytes 9 % 0-12 Automated blood eosinophils/100 leukocytes 1 % 0-10 Automated blood basophils/100 leukocytes 0 % 0-10 Blood neutrophils automated count (number/volume) 10.1 10*3 1.8-7.8 Blood lymphocytes automated count (number/volume) 1.3 10*3 1.0-4.0 Blood monocytes automated count (number/volume) 1.2 10*3 0.0-1.0 Automated eosinophil count 0.1 10*3/uL 0.0-0.3 Automated blood basophil count (count/volume) 0.0 10*3/uL 0.0-0.1 Whole blood basic metabolic panel - 10/06/16 05:10 Serum or plasma sodium measurement (moles/volume) 139 mmol/ L 135-145 Serum or plasma potassium measurement (moles/volume) 3.3 mmol/L 3.6-5.0 Serum or plasma chloride measurement (moles/volume) 107 mmol /L 98-107 Carbon dioxide 24 mmol/L 21-32 Serum or plasma anion gap determination (moles/volume) 8 mmol/L 5-14 Serum or plasma urea nitrogen measurement (mass/volume) 12 mg/dL 7-18 Serum or plasma creatinine measurement (mass/volume) 0.58 mg /dL 0.60-1.30 Serum or plasma urea nitrogen/creatinine mass ratio 21 NRG Serum or plasma creatinine measurement with calculation of estimated glomerular filtration rate > NRG Serum or plasma glucose measurement (mass/volume) 88 mg/dL 70-105 Serum or plasma calcium measurement (mass/volume) 12.6 mg/ dL 8.5-10.1 Magnesium - 10/06/16 05:10 Magnesium 1.2 mg/dL 1.8-2.4 Complete blood count (CBC) with automated white blood cell (WBC) differential - 10/07/16 04:21 Blood leukocytes automated count (number/volume) 16.6 10*3/ uL 4.3-11.0 Blood erythrocytes automated count (number/volume) 3.15 10*6 /uL 4.35-5.85 Venous blood hemoglobin measurement (mass/volume) 8.8 g/dL 11.5-16.0 Blood hematocrit (volume fraction) 29 % 35-52 Automated erythrocyte mean corpuscular volume 91 [foz_us] 80-99 Automated erythrocyte mean corpuscular hemoglobin (mass per erythrocyte) 28 pg 25-34 Automated erythrocyte mean corpuscular hemoglobin concentration measurement ( mass/volume) 31 g/dL 32-36 Automated erythrocyte distribution width ratio 14.1 % 10.0-14.5 Automated blood platelet count (count/volume) 381 10*3/uL 130-400 Automated blood platelet mean volume measurement 9.3 [foz_us ] 7.4-10.4 Automated blood neutrophils/100 leukocytes 83 % 42-75 Automated blood lymphocytes/100 leukocytes 9 % 12-44 Blood monocytes/100 leukocytes 7 % 0-12 Automated blood eosinophils/100 leukocytes 1 % 0-10 Automated blood basophils/100 leukocytes 0 % 0-10 Blood neutrophils automated count (number/volume) 13.8 10*3 1.8-7.8 Blood lymphocytes automated count (number/volume) 1.5 10*3 1.0-4.0 Blood monocytes automated count (number/volume) 1.2 10*3 0.0-1.0 Automated eosinophil count 0.1 10*3/uL 0.0-0.3 Automated blood basophil count (count/volume) 0.0 10*3/uL 0.0-0.1 Whole blood basic metabolic panel - 10/07/16 04:21 Serum or plasma sodium measurement (moles/volume) 138 mmol/ L 135-145 Serum or plasma potassium measurement (moles/volume) 3.1 mmol/L 3.6-5.0 Serum or plasma chloride measurement (moles/volume) 104 mmol /L 98-107 Carbon dioxide 22 mmol/L 21-32 Serum or plasma anion gap determination (moles/volume) 12 mmol/L 5-14 Serum or plasma urea nitrogen measurement (mass/volume) 8 mg /dL 7-18 Serum or plasma creatinine measurement (mass/volume) 0.54 mg /dL 0.60-1.30 Serum or plasma urea nitrogen/creatinine mass ratio 15 NRG Serum or plasma creatinine measurement with calculation of estimated glomerular filtration rate > NRG Serum or plasma glucose measurement (mass/volume) 75 mg/dL 70-105 Serum or plasma calcium measurement (mass/volume) 11.8 mg/ dL 8.5-10.1 Blood manual differential performed detection - 10/07/16 04:21 Blood monocytes/100 leukocytes 8 % NRG Manual blood segmented neutrophils/100 leukocytes 85 % NRG Blood band neutrophils/100 leukocytes 1 % NRG Manual blood lymphocytes/100 leukocytes 4 % NRG Manual eosinophils/100 leukocytes in nose 0 % NRG Manual blood basophils/100 leukocytes 0 % NRG Blood lymphocytes variant/100 leukocytes 2 % NRG Blood anisocytosis detection by light microscopy SLIGHT NRG Encounters ACCT No. Visit Date/Time Discharge Status Pt. Type Provider Facility Loc./Unit Complaint [id number] 09/25/2016 22:15:00 2016 14:05:00 DIS Outpatient HANDY ALCARAZ MD [facility] 4TH METASTATIC CANCER,LT LUNG MASS [id number] 01/26/2015 15:05:00 2014 23:59:59 CLS Outpatient HANDY ALCARAZ MD [facility] ONC [id number] 01/20/2014 15:20:00 2013 23:59:59 CLS Outpatient AHNDY ALCARAZ MD [facility] ONC [id number] 07/22/2013 15:02:00 2013 23:59:59 CLS Outpatient HANDY ALCARAZ MD [facility] ONC [id number] 01/21/2013 14:49:00 2012 23:59:59 CLS Outpatient HANDY ALCARAZ MD [facility] ONC [id number] 10/05/2016 17:05:00 ACT Inpatient HANDY ALCARAZ MD [facility] 4TH HYPERCALCEMIA [id number] 10/05/2016 14:45:00 ACT Outpatient HANDY ALCARAZ MD [facility] ONC [id number] 01/13/2016 15:00:00 ACT Outpatient HANDY ALCARAZ MD [facility] ONC [id number] 01/13/2016 15:00:00 Document Registration [id number] 07/15/2015 14:26:00 ACT Outpatient HANDY ALCARAZ MD [facility] ONC [id number] 07/04/2012 14:57:00 Document Registration [id number] 03/07/2012 14:54:00 Document Registration [id number] 10/12/2011 13:32:00 Document Registration [id number] 06/08/2011 15:01:00 Document Registration [id number] 03/09/2011 14:43:00 Document Registration [id number] 01/05/2011 13:17:00 Document Registration [id number] 08/04/2010 14:45:00 Document Registration [id number] 07/28/2010 16:26:00 Document Registration
[2016-10-10 04:57] LABS: BASOPHILS % (AUTO) 0 % (0-10); EOSINOPHILS # (AUTO) 0.1 10^3/uL (0.0-0.3); EOSINOPHILS % (AUTO) 1 % (0-10); LYMPHOCYTES % (AUTO) 14 % (12-44); MEAN CORPUSCULAR HEMOGLOBIN 28 PG (25-34); MEAN CORPUSCULAR HGB CONC 31 G/DL (32-36); MEAN CORPUSCULAR VOLUME 89 FL (80-99); MEAN PLATELET VOLUME 9.6 FL (7.4-10.4); MONOCYTES # (AUTO) 1.1 X 10^3 (0.0-1.0); MONOCYTES % (AUTO) 8 % (0-12); NEUTROPHILS % (AUTO) 77 % (42-75); PLATELET COUNT 364 10^3/uL (130-400); RED BLOOD COUNT 3.47 10^6/uL (4.35-5.85); RED CELL DISTRIBUTION WIDTH 14.9 % (10.0-14.5); WHITE BLOOD COUNT 14.2 10^3/uL (4.3-11.0)
[2016-10-10 05:13] LABS: ANION GAP 7 MMOL/L (5-14); BLOOD UREA NITROGEN 7 MG/DL (7-18); BUN/CREATININE RATIO 16; CALCIUM 8.7 MG/DL (8.5-10.1); CARBON DIOXIDE 21 MMOL/L (21-32); CHLORIDE 109 MMOL/L (98-107); CREATININE SERUM 0.44 MG/DL (0.60-1.30); GFR ESTIMATED > 60; GLUCOSE 71 MG/DL (70-105); POTASSIUM 3.1 MMOL/L (3.6-5.0); SODIUM 137 MMOL/L (135-145)
[2016-10-10] MEDS: MULTIVIT W/MINERALS TAB (THERAGRAN M) PO SCH (05:49)
[2016-10-10] MEDS: LEVOTHYROXINE 50 MCG (LEVOTHROID) TAB PO SCH (05:49)
[2016-10-10 08:00] VITALS: BP 136/82
--- NOTE | 2016-10-10 09:39 | Diagnostic Imaging Report ---
INDICATION: Fever. No chest complaints. Comparison study: Chest from 10/05/2016. FINDINGS: Left pleural effusion and opacification of much of the left lung with loss of volume on the left side appear stable. Right lung is clear. The heart size and vascularity are normal. IMPRESSION: Stable infiltrates and effusion on the left side. Dictated by: Dictated on workstation # [id number]
[2016-10-10] MEDS: FAMOTIDINE 20 MG (PEPCID) TABLET PO SCH (09:59)
[2016-10-10] MEDS: NS W/KCL 20 MEQ/L 1,000 ML IV SCH ×2 (09:59→18:35)
[2016-10-10] MEDS: POTASSIUM CL 10MEQ/50ML IVPB 50 ML IV SCH ×5 (12:57→16:36)
[2016-10-10] MEDS: ENOXAPARIN 30 MG/0.3 ML (LOVENOX) SYR SC SCH (13:00)
--- NOTE | 2016-10-10 13:05 | Progress Note (SOAP) ---
Subjective Date Seen by Provider: Oct 10, 2016 Time Seen by Provider: 12:03 Subjective/Events-last exam Reports weakness and persistent cough productive of whitish phlegm; Objective Exam Vital Signs Date Time Temp Pulse Resp B/P (MAP) Pulse Ox O2 Delivery O2 Flow Rate FiO2 10/10/16 08:21 94 Nasal Cannula 4.00 10/10/16 08:00 99.0 100 22 136/82 94 Nasal Cannula 4.00 10/10/16 01:20 99.8 10/10/16 00:23 100.4 10/10/16 00:00 100.4 122 32 148/81 93 Nasal Cannula 4.00 10/09/16 20:00 Nasal Cannula 4.00 10/09/16 16:35 99.3 93 20 122/86 94 Nasal Cannula 4.00 10/09/16 14:28 99.1 I & O 10/10/16 07:00 Intake Total 3260 ml Output Total 1600 ml Balance 1660 ml Capillary Refill : Less Than 3 Seconds General Appearance: Chronically ill, Thin HEENT: PERRL/EOMI Neck: Non Tender, Supple Respiratory: Crackles, Decreased Breath Sounds Cardiovascular: No JVD, Tachycardia Gastrointestinal: normal bowel sounds, non tender, soft, no organomegaly Extremity: Non Tender, No Calf Tenderness Neurologic/Psychiatric: Depressed Affect Results Lab Laboratory Tests 10/10/16 00:30: Lactic Acid Level 1.03 10/10/16 04:22: White Blood Count 14.2H, Red Blood Count 3.47L, Hemoglobin 9.6L, Hematocrit 31L , Mean Corpuscular Volume 89, Mean Corpuscular Hemoglobin 28, Mean Corpuscular Hemoglobin Concent 31L, Red Cell Distribution Width 14.9H, Platelet Count 364, Mean Platelet Volume 9.6, Neutrophils (%) (Auto) 77H, Lymphocytes (%) (Auto) 14 , Monocytes (%) (Auto) 8, Eosinophils (%) (Auto) 1, Basophils (%) (Auto) 0, Neutrophils # (Auto) 11.0H, Lymphocytes # (Auto) 2.0, Monocytes # (Auto) 1.1H, Eosinophils # (Auto) 0.1, Basophils # (Auto) 0.0, Sodium Level 137, Potassium Level 3.1L, Chloride Level 109H, Carbon Dioxide Level 21, Anion Gap 7, Blood Urea Nitrogen 7, Creatinine 0.44L, Estimat Glomerular Filtration Rate > 60, BUN/ Creatinine Ratio 16, Glucose Level 71, Calcium Level 8.7 Laboratory Tests 10/09/16 04:42 10/10/16 04:22 Assessment/Plan Assessment/Plan Assess & Plan/Chief Complaint 1. Hypercalcemia of Malignancy a. Administer aggressive fluid replacement as tolerated b. Pamidronate 60mg IV given on 10/05/16; c. continue IV hydration at slower rate; 2. 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 MRI Brain -skull mets but no intraparenchymal mets b. Pathologic right humeral fracture--Status Post Pinning c. Radiation Oncology consult for right humeral lytic lesion radiation d. Performance Status is very poor--patient is not candidate for chemotherapy at this time; e. Request Charge Operator to arrange family meeting; f. Swing Bed Evaluation for radiation and discharge planning; Patient lives alone. Too weak to be discharged back to home to live alone. 3. History of Stage IIIC Breast Cancer diagnosed 2009 a. CA27.29 markedly elevated although lung neoplasm and bone cancer are being interpreted as arising from a lung primary carcinoma; 4. Hypokalemia and Hypomagnesemia- Replace potassium and magnesium and monitor; 5. Anemia of Cancer 6. Reactive Leukocytosis. Thrombocytosis seen in clinic has resolved with IV hydration; Status Post recent surgery and recent treatment of pneumonia 7. History of Tobaccoism--quit smoking 2 months ago 8. Former heavy alcohol intake 9. DVT prophylaxis--Lovenox being given; Clinical Quality Measures DVT/VTE Risk/Contraindication: Risk Factor Score Per Nursin RFS Level Per Nursing on Admit: 4+=Very High Contraindications-Pharm: Other *list below* Other: Metastatic Lung Cancer--check MRI brain and if negative will add Lovenox; DVT/VTE Prophylaxis Comfirm.Dx Pharmacological not ordered: Cancer-Active HANDY ALCARAZ MD Oct 10, 2016 13:05
[2016-10-10] MEDS ORDERED: NS IV 500 ML 500 ML ONE (15:13)
[2016-10-10 15:43] VITALS: BP 127/88
[2016-10-10] MEDS: MIRTAZAPINE 15 MG (REMERON) TAB PO SCH (20:09)
[2016-10-11 00:37] VITALS: BP 122/65
[2016-10-11] MEDS: NS W/KCL 20 MEQ/L 1,000 ML IV SCH ×2 (00:40→14:10)
[2016-10-11 04:39] LABS: BASOPHILS % (AUTO) 0 % (0-10); EOSINOPHILS # (AUTO) 0.1 10^3/uL (0.0-0.3); EOSINOPHILS % (AUTO) 1 % (0-10); LYMPHOCYTES # (AUTO) 2.3 X 10^3 (1.0-4.0); LYMPHOCYTES % (AUTO) 17 % (12-44); MEAN CORPUSCULAR HEMOGLOBIN 28 PG (25-34); MEAN CORPUSCULAR HGB CONC 32 G/DL (32-36); MEAN CORPUSCULAR VOLUME 88 FL (80-99); MEAN PLATELET VOLUME 9.7 FL (7.4-10.4); MONOCYTES # (AUTO) 1.2 X 10^3 (0.0-1.0); MONOCYTES % (AUTO) 9 % (0-12); NEUTROPHILS # (AUTO) 9.8 X 10^3 (1.8-7.8); NEUTROPHILS % (AUTO) 74 % (42-75); PLATELET COUNT 354 10^3/uL (130-400); RED BLOOD COUNT 3.35 10^6/uL (4.35-5.85); RED CELL DISTRIBUTION WIDTH 14.8 % (10.0-14.5); WHITE BLOOD COUNT 13.3 10^3/uL (4.3-11.0)
[2016-10-11 05:07] LABS: ANION GAP 7 MMOL/L (5-14); BLOOD UREA NITROGEN 7 MG/DL (7-18); BUN/CREATININE RATIO 15; CALCIUM 8.5 MG/DL (8.5-10.1); CARBON DIOXIDE 22 MMOL/L (21-32); CHLORIDE 108 MMOL/L (98-107); CREATININE SERUM 0.46 MG/DL (0.60-1.30); GFR ESTIMATED > 60; GLUCOSE 110 MG/DL (70-105); POTASSIUM 3.2 MMOL/L (3.6-5.0); SODIUM 137 MMOL/L (135-145)
[2016-10-11] MEDS: MULTIVIT W/MINERALS TAB (THERAGRAN M) PO SCH (06:06)
[2016-10-11] MEDS: LEVOTHYROXINE 50 MCG (LEVOTHROID) TAB PO SCH (06:06)
[2016-10-11 08:00] VITALS: BP 141/69
[2016-10-11] MEDS: FAMOTIDINE 20 MG (PEPCID) TABLET PO SCH (09:29)
--- NOTE | 2016-10-11 09:30 | Progress Note (SOAP) ---
Subjective Date Seen by Provider: Oct 11, 2016 Time Seen by Provider: 09:15 Subjective/Events-last exam Patient is still not eating well and is always in bed; She continues to request treatment rather than hospice; She is encouraged to sit up. Still awaiting Radiation Oncology evaluation; Objective Exam Vital Signs Date Time Temp Pulse Resp B/P (MAP) Pulse Ox O2 Delivery O2 Flow Rate FiO2 10/11/16 08:06 90 Nasal Cannula 4.00 10/11/16 00:37 98.5 127 22 122/65 93 Nasal Cannula 4.00 10/10/16 19:30 Nasal Cannula 4.00 10/10/16 15:43 100.2 129 28 127/88 94 Nasal Cannula 4.00 10/10/16 15:13 90 Nasal Cannula 4.00 I & O 10/11/16 07:00 Intake Total 1070 ml Balance 1070 ml Capillary Refill : Less Than 3 Seconds General Appearance: Chronically ill, Thin HEENT: PERRL/EOMI Neck: Normal Inspection, Non Tender Respiratory: Crackles, Decreased Breath Sounds Cardiovascular: Tachycardia Gastrointestinal: normal bowel sounds, non tender, soft, no organomegaly Extremity: Non Tender, No Calf Tenderness Results Lab Laboratory Tests 10/11/16 04:02: White Blood Count 13.3H, Red Blood Count 3.35L, Hemoglobin 9.4L, Hematocrit 29L , Mean Corpuscular Volume 88, Mean Corpuscular Hemoglobin 28, Mean Corpuscular Hemoglobin Concent 32, Red Cell Distribution Width 14.8H, Platelet Count 354, Mean Platelet Volume 9.7, Neutrophils (%) (Auto) 74, Lymphocytes (%) (Auto) 17, Monocytes (%) (Auto) 9, Eosinophils (%) (Auto) 1, Basophils (%) (Auto) 0, Neutrophils # (Auto) 9.8H, Lymphocytes # (Auto) 2.3, Monocytes # (Auto) 1.2H, Eosinophils # (Auto) 0.1, Basophils # (Auto) 0.0, Sodium Level 137, Potassium Level 3.2L, Chloride Level 108H, Carbon Dioxide Level 22, Anion Gap 7, Blood Urea Nitrogen 7, Creatinine 0.46L, Estimat Glomerular Filtration Rate > 60, BUN/ Creatinine Ratio 15, Glucose Level 110H, Calcium Level 8.5 Microbiology 10/10/16 Blood Culture - Preliminary, Resulted No growth 10/10/16 Gram Stain - Final, Resulted 7/11/17 Sputum Culture - Preliminary, Resulted Normal burke Laboratory Tests 10/10/16 04:22 10/11/16 04:02 Assessment/Plan Assessment/Plan Assess & Plan/Chief Complaint 1. Hypercalcemia of Malignancy a. Administer aggressive fluid replacement as tolerated b. Pamidronate 60mg IV given on 10/05/16; c. continue IV hydration at slower rate; 2. 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 MRI Brain -skull mets but no intraparenchymal mets b. Pathologic right humeral fracture--Status Post Pinning c. Radiation Oncology consult for right humeral lytic lesion radiation d. Performance Status is very poor--patient is not candidate for chemotherapy at this time; e. Request Step Down Specialist to arrange family meeting; f. Swing Bed Evaluation for radiation and discharge planning; Patient lives alone. Too weak to be discharged back to home to live alone. 3. History of Stage IIIC Breast Cancer diagnosed 2009 a. CA27.29 markedly elevated although lung neoplasm and bone cancer are being interpreted as arising from a lung primary carcinoma; 4. Hypokalemia and Hypomagnesemia- Replace potassium and magnesium and monitor; 5. Anemia of Cancer 6. Reactive Leukocytosis. Thrombocytosis seen in clinic has resolved with IV hydration; Status Post recent surgery and recent treatment of pneumonia 7. History of Tobaccoism--quit smoking 2 months ago 8. Former heavy alcohol intake 9. DVT prophylaxis--Lovenox being given; Clinical Quality Measures DVT/VTE Risk/Contraindication: Risk Factor Score Per Nursin RFS Level Per Nursing on Admit: 4+=Very High Contraindications-Pharm: Other *list below* Other: Metastatic Lung Cancer--check MRI brain and if negative will add Lovenox; DVT/VTE Prophylaxis Comfirm.Dx Pharmacological not ordered: Cancer-Active HANDY ALCARAZ MD Oct 11, 2016 09:30
[2016-10-11 09:52] LABS: BILIRUBIN,URINE NEGATIVE (NEGATIVE); KETONES,URINE NEGATIVE (NEGATIVE); LEUKOCYTE ESTERASE ,URINE 1+ (NEGATIVE); NITRITE,URINE NEGATIVE (NEGATIVE); PH,URINE 8 (5-9); PROTEIN,URINE 1+ (NEGATIVE); UROBILINOGEN,URINE NORMAL (NORMAL)
[2016-10-11 10:01] LABS: WBC,URINE 0-2 /HPF
[2016-10-11] MEDS: oxyCODONE/APAP 5/325MG (PERCOCET 5) TABLET PO PRN (12:49)
[2016-10-11] MEDS: ENOXAPARIN 30 MG/0.3 ML (LOVENOX) SYR SC SCH (14:10)
[2016-10-11 15:55] VITALS: BP 117/69
--- NOTE | 2016-10-11 17:26 | History & Physicial ---
History of Present Illness History of Present Illness Reason for visit/HPI Bone metastasis, right humerus, from NSC lung cancer *65 y/o white female [facility] resident who was recently diagnosed with metastatic non-small cell lung cancer. *She has a history of stage IIIB left breast cancer diagnosed 2009 for which she underwent neoadjuvant chemotherapy followed by surgery, adjuvant chemotherapy, radiation and hormonal treatment (discontinued Jan 2016). *09/25/16 admitted thru the ED for right upper extremity pain. X-ray showed a mildly displaced pathologic fracture. *09/26/16 CT scan C/A/P: identified an 8.3 cm mass-like consolidation in the CAMILLE with associated hilar and mediastinal adenopathy. *09/26/16 CT guided needle biopsy left lung --Pathology: high-grade carcinoma with combined morphologic and IHC findings most in keeping with lung primary *09/27/16 Bone scan: noted multiple foci of increased activity in the skull, right humerus and the right femur along with a T12 compression fracture and mild increased activity in the L5 vertebral body. *09/28/16 IM nailing right humerus and bone needle biopsy performed by Dr. Eloy Schroeder --Pathology: metastatic carcinoma with combined morphologic and IHC findings most in keeping with metastasis from lung primary *She was discharged and followed with Dr. Mercedes at the cancer center as an outpatient. Lab work on 10/05/16 noted the patient to have severe hypercalcemia. She was admitted for treatment. *The patient is reporting pain in the right humerus. *A radiation oncology referral was made for evaluation and consideration of palliative xrt to the right humerus; thus my visit with the patient today. Date of Admission Oct 05, 2016 at 17:05 Date Seen by Provider: Oct 11, 2016 Time Seen by Provider: 17:25 I consulted on this patient on 10/11/16 16:59 Attending Physician Irma Mercedes MD Admitting Physician Jacqueline Mendieta MD Consult Jenna Pichardo MD Radiation Oncology Allergies and Home Medications Allergies Coded Allergies: No Known Drug Allergies (Unverified , 10/05/09) Home Medications Levothyroxine Sodium 50 Mcg Tablet, 50 MCG PO DAILY, (Reported) Mirtazapine 15 Mg Tablet, 15 MG PO HS, (Reported) Morphine Sulfate 100 Mg/5 Ml Solution, 2 MG PO Q2H PRN for PAIN, #30 Prescribed by: JOSE DAIGLE on 10/02/16 1039 Multivitamins 1 Tab Tablet, 1 TAB PO DAILY, (Reported) Oxycodone HCl/Acetaminophen 1 Each Tablet, 1 TAB PO Q4H PRN for PAIN-MODERATE, ( Reported) Past Qxwdycp-Oqoeew-Rginkq Hx Patient Social History Alcohol Use: Denies Use Recreational Drug Use: No Smoking Status: Former Smoker Type Used: Cigarettes 2nd Hand Smoke Exposure: Yes Physical Abuse Screen: Yes Sexual Abuse: No Recent Foreign Travel: No Contact w/other who traveled: No Recent Hopitalizations: No Recent Infectious Disease Expo: No Immunizations Up To Date Tetanus Booster (TDap): Unknown Seasonal Allergies Seasonal Allergies: No Surgeries HX Surgeries: Yes (BILATERAL MASTECTOMY; LEFT TOE REMOVAL) Surgeries: Appendectomy, Breast, Orthopedic Respiratory Hx Respiratory Disorders: Yes Respiratory Disorders: COPD, Pneumonia Cardiovascular Hx Cardiovascular Disorders: No Neurological Hx Neurological Disorders: No 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 System Hx 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 Disorders: No Genitourinary Hx Genitourinary Disorders: No Gastrointestinal Hx Gastrointestinal Disorders: Yes Gastrointestinal Disorders: Gastroesophageal Reflux Musculoskeletal Hx Musculoskeletal Disorders: Yes (COMPRESSION FRACTURES) Musculoskeletal Disorders: Chronic Back Pain, Fractures Endocrine Hx Endocrine Disorders: Yes Endocrine Disorders: Hypothyroidsim HEENT HX ENT Disorders: Yes Cancer Hx Cancer: Yes (BREAST CANCER DX 2009--S/P BILATERAL MASTECTOMY, CHEMO AND RADIATION) Cancer: Breast Psychosocial Hx Psychiatric Problems: No Integumentary HX Skin/Integumentary Disorder: No Blood Transfusions Hx Blood Disorders: No Family Medical History Significant Family History: Cancer Family Hx: FH: brain cancer G8 BROTHER G8 SISTER FH: liver cancer G8 SISTER FH: lung cancer 19 FATHER 19 MOTHER G8 BROTHER FH: skin cancer Constitutional: weight gain EENTM: no symptoms reported Respiratory: cough, dyspnea on exertion, short of breath, wheezing Cardiovascular: no symptoms reported Musculoskeletal: other (Patient reports pain right humerus. Denies pain elsewhere.) Skin: no symptoms reported Psychiatric/Neurological: No Symptoms Reported Physical Exam Vital Signs Vital Sign - Last 12Hours 10/05/16 17:57 Temp 99.0 Pulse 112 Resp 20 B/P (MAP) 110/67 Pulse Ox 98 O2 Delivery Nasal Cannula O2 Flow Rate 4.00 Capillary Refill : Less Than 3 Seconds General Appearance: Chronically ill, Cachetic, Other (white female lying quietly in bed when I entered the room.) Respiratory: Wheezing, Other (wearing O2 per nasal cannula) Comments Musculoskeletal: Dressing right shoulder; right arm in sling lying across her body. Able to move extremity but causes pain. Assessment/Plan Assessment and Plan Metastatic NSC lung cancer Pathologic fracture right humerus s/p IM nail Associated pain right humerus- in need of palliative xrt Discussed palliative xrt to the right humerus. We would bring her down to the rad onc dept tomorrow morning and perform a clinical set up on the treatment machine then deliver 800 cGy in 1 fracture. No side effects should be incurred. The patient stated understanding the recommended plan with the goal of palliative pain control. She agreed with this plan. Problems: Admission Diagnosis *Metastatic NSC lung cancer *Hypercalcemia Clinical Quality Measures DVT/VTE Risk/Contraindication: Risk Factor Score Per Nursin RFS Level Per Nursing on Admit: 4+=Very High Contraindications-Pharm: Other *list below* Other: Metastatic Lung Cancer--check MRI brain and if negative will add Lovenox; DVT/VTE Prophylaxis Comfirm.Dx Pharmacological not ordered: Cancer-Active JENNA PICHARDO MD Oct 11, 2016 17:26
[2016-10-11 19:48] VITALS: BP 106/69
[2016-10-11] MEDS: KCL 20 MEQ TAB (K-DUR) PO SCH (20:00)
[2016-10-11] MEDS: MIRTAZAPINE 15 MG (REMERON) TAB PO SCH (20:00)
[2016-10-12] VITALS: BP 101/58
[2016-10-12] MEDS: ACETAMINOPHEN 325 MG TABLET/CAPLET (TYLENOL) PO PRN (00:05)
[2016-10-12] MEDS: LEVOTHYROXINE 50 MCG (LEVOTHROID) TAB PO SCH (06:12)
[2016-10-12] MEDS: MULTIVIT W/MINERALS TAB (THERAGRAN M) PO SCH (06:12)
[2016-10-12 06:23] LABS: BASOPHILS % (AUTO) 0 % (0-10); EOSINOPHILS # (AUTO) 0.2 10^3/uL (0.0-0.3); EOSINOPHILS % (AUTO) 1 % (0-10); LYMPHOCYTES # (AUTO) 2.3 X 10^3 (1.0-4.0); LYMPHOCYTES % (AUTO) 20 % (12-44); MEAN CORPUSCULAR HEMOGLOBIN 28 PG (25-34); MEAN CORPUSCULAR HGB CONC 32 G/DL (32-36); MEAN CORPUSCULAR VOLUME 89 FL (80-99); MEAN PLATELET VOLUME 9.9 FL (7.4-10.4); MONOCYTES # (AUTO) 1.1 X 10^3 (0.0-1.0); MONOCYTES % (AUTO) 9 % (0-12); NEUTROPHILS # (AUTO) 8.3 X 10^3 (1.8-7.8); NEUTROPHILS % (AUTO) 70 % (42-75); PLATELET COUNT 327 10^3/uL (130-400); RED BLOOD COUNT 3.17 10^6/uL (4.35-5.85); RED CELL DISTRIBUTION WIDTH 14.8 % (10.0-14.5); WHITE BLOOD COUNT 11.9 10^3/uL (4.3-11.0)
[2016-10-12 06:44] LABS: ANION GAP 9 MMOL/L (5-14); BLOOD UREA NITROGEN 8 MG/DL (7-18); BUN/CREATININE RATIO 18; CALCIUM 8.3 MG/DL (8.5-10.1); CARBON DIOXIDE 20 MMOL/L (21-32); CHLORIDE 108 MMOL/L (98-107); CREATININE SERUM 0.45 MG/DL (0.60-1.30); GFR ESTIMATED > 60; GLUCOSE 92 MG/DL (70-105); POTASSIUM 3.5 MMOL/L (3.6-5.0); SODIUM 137 MMOL/L (135-145)
[2016-10-12 08:02] VITALS: BP 123/78
[2016-10-12] MEDS: KCL 20 MEQ TAB (K-DUR) PO SCH ×2 (08:19→20:08)
[2016-10-12] MEDS: FAMOTIDINE 20 MG (PEPCID) TABLET PO SCH (08:19)
[2016-10-12] MEDS: oxyCODONE/APAP 5/325MG (PERCOCET 5) TABLET PO PRN ×2 (10:29→20:08)
[2016-10-12] MEDS: morphine (ROXINOL) 10 MG/0.5 ML oral conc 0.5 ML PO PRN (12:27)
--- NOTE | 2016-10-12 12:51 | Progress Note (SOAP) ---
Subjective Date Seen by Provider: Oct 12, 2016 Time Seen by Provider: 12:02 Subjective/Events-last exam Boyfriend is visiting with the patient who seems more clear and alert today. Family meeting is arranged for 7pm tonight. Objective Exam Vital Signs Date Time Temp Pulse Resp B/P (MAP) Pulse Ox O2 Delivery O2 Flow Rate FiO2 10/12/16 08:20 92 Nasal Cannula 4.00 10/12/16 08:02 99.3 109 18 123/78 92 Nasal Cannula 4.00 10/12/16 07:18 Nasal Cannula 4.50 10/12/16 01:00 98.9 10/12/16 00:05 100.2 10/12/16 00:00 100.2 122 24 101/58 92 Nasal Cannula 4.50 10/11/16 20:00 Nasal Cannula 4.00 10/11/16 15:55 98.9 119 24 117/69 93 Nasal Cannula 4.00 I & O 10/12/16 07:00 Intake Total 980 ml Output Total 550 ml Balance 430 ml Capillary Refill : Less Than 3 Seconds General Appearance: Chronically ill HEENT: PERRL/EOMI Neck: Non Tender, Supple Respiratory: Crackles Cardiovascular: Tachycardia Gastrointestinal: normal bowel sounds, non tender, soft, no organomegaly Extremity: Non Tender, No Calf Tenderness Neurologic/Psychiatric: Alert, Oriented x3 Results Lab Laboratory Tests 10/12/16 05:25: White Blood Count 11.9H, Red Blood Count 3.17L, Hemoglobin 8.9L, Hematocrit 28L , Mean Corpuscular Volume 89, Mean Corpuscular Hemoglobin 28, Mean Corpuscular Hemoglobin Concent 32, Red Cell Distribution Width 14.8H, Platelet Count 327, Mean Platelet Volume 9.9, Neutrophils (%) (Auto) 70, Lymphocytes (%) (Auto) 20, Monocytes (%) (Auto) 9, Eosinophils (%) (Auto) 1, Basophils (%) (Auto) 0, Neutrophils # (Auto) 8.3H, Lymphocytes # (Auto) 2.3, Monocytes # (Auto) 1.1H, Eosinophils # (Auto) 0.2, Basophils # (Auto) 0.0, Sodium Level 137, Potassium Level 3.5L, Chloride Level 108H, Carbon Dioxide Level 20L, Anion Gap 9, Blood Urea Nitrogen 8, Creatinine 0.45L, Estimat Glomerular Filtration Rate > 60, BUN/ Creatinine Ratio 18, Glucose Level 92, Calcium Level 8.3L Microbiology 10/10/16 Blood Culture - Preliminary, Resulted No growth 10/10/16 Gram Stain - Final, Complete 10/10/16 Sputum Culture - Final, Complete Usual/normal burke isolated. 10/11/16 Urine Culture - Preliminary, Resulted Probable Coag Negative Staph Strep Or Related Genus Laboratory Tests 10/11/16 04:02 10/12/16 05:25 Assessment/Plan Assessment/Plan Assess & Plan/Chief Complaint 1. Hypercalcemia of Malignancy a. Administer aggressive fluid replacement as tolerated b. Pamidronate 60mg IV given on 10/05/16; c. continue IV hydration at slower rate; 2. 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 MRI Brain -skull mets but no intraparenchymal mets b. Pathologic right humeral fracture--Status Post Pinning c. Radiation Oncology consult for right humeral lytic lesion radiation d. Performance Status is very poor--patient is not candidate for chemotherapy at this time; e. Family meeting planned for tonight at 7pm with Card Decorator present. 3. History of Stage IIIC Breast Cancer diagnosed 2009 a. CA27.29 markedly elevated although lung neoplasm and bone cancer are being interpreted as arising from a lung primary carcinoma; 4. Hypokalemia and Hypomagnesemia- Replace potassium and magnesium and monitor; 5. Anemia of Cancer 6. Reactive Leukocytosis. Thrombocytosis seen in clinic has resolved with IV hydration; Status Post recent surgery and recent treatment of pneumonia 7. History of Tobaccoism--quit smoking 2 months ago 8. Former heavy alcohol intake 9. DVT prophylaxis--Lovenox being given;\ 10. Dr. Smith will cover me until 10/17/16. Clinical Quality Measures DVT/VTE Risk/Contraindication: Risk Factor Score Per Nursin RFS Level Per Nursing on Admit: 4+=Very High Contraindications-Pharm: Other *list below* Other: Metastatic Lung Cancer--check MRI brain and if negative will add Lovenox; DVT/VTE Prophylaxis Comfirm.Dx Pharmacological not ordered: Cancer-Active HANDY ALCARAZ MD Oct 12, 2016 12:51
[2016-10-12] MEDS: ENOXAPARIN 30 MG/0.3 ML (LOVENOX) SYR SC SCH (13:10)
[2016-10-12] MEDS: NS W/KCL 20 MEQ/L 1,000 ML IV SCH (15:07)
--- NOTE | 2016-10-12 15:26 | Physical Therapy Progress Note ---
Therapy Progress Note Patient declined PT this p.m. due to extreme fatigue. RN verifies patient's increase in activity on this date. PT to assess in a.m. 1 ref SHILOH LIGHT PT Oct 12, 2016 15:26
[2016-10-12 16:22] VITALS: BP 126/61
--- NOTE | 2016-10-12 17:12 | Occupational Therapy Eval ---
OT Evaluation-General/PLF Medical Diagnosis Admission Date Oct 05, 2016 at 17:05 Medical Diagnosis: metastatic lung cancer, mets to bone, recent fx R humerus Onset Date: Oct 05, 2016 Therapy Diagnosis Therapy Diagnosis: weakness, decr self care, decr funct mobility, decr activity tolerance Height/Weight Height (Feet): 5 Height (Inches): 3.00 Weight (Pounds): 105 Weight (Ounces): 6.0 Precautions Precautions/Isolations: Fall Prevention, Standard Precautions Safety Interventions: Bed Exit Alarm, Reorient-PRN Referral Physician: Daren Referral Reason: Evaluation/Treatment Medical History Pertinent Medical History: Breast CA S/P Mastectomy, COPD, GERD, Hypothroidism , Smoking Additional Medical History Bilat mastectomy 2009, L toe removal, compression fx, chronic back pain, former heavy alcohol intake Current History Recent admission for pathological fx R humerus with IM nail 09-28-16. 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 She drove. Two sons live next door. Has quad cane and home O2 DME/Equipment: Grab Bars DME/Equipment Comments Pt said she has lots of grab bars in her bathroom but has garden tub or whirlpool and doesn't get in the tub. OT Current Status Subjective Pt seen in room, up in recliner, agreeable to OT. Pain reported 0/10. Appearance Alert, cooperative Mental Status/Objective Attachments: Central Line, Oxygen Current Hand Dominance: Left Upper Extremity ROM L UE grossly WFL. R UE not tested - arm is in sling. Significant edema R hand and forearm limiting movement Upper Extremity Strength Grossly 4/5 L UE. R UE not tested - arm is in sling. Unable to make full fist R hand due to edema ADL-Treatment Functional [place] Measure 0=Not Assessed/NA 4=Minimal Assistance 1=Total Assistance 5=Supervision or Setup 2=Maximal Assistance 6=Modified [place] 3=Moderate Assistance 7=Complete IndependenceIRFPAI Quality Coding Scale 6 Independent with activity with or without an assistive device 5 Patient requires set up or clean up by helper. Patient completes activity by themselves 4 Supervision or touching assist (CGA). [place] provide cues , steadying assist 3 The helper provides less than half the effort to complete the activity 2 The helper provides more than half the effort to complete the activity 1 Dependent. The helper does all the effort to complete an activity 7 Patient refused to complete or attempt activity 9 The patient did not perform the activity before the current illness or injury 88 Not attempted due to Medical conditions or safety concerns Eating (FIM): 5 (Setup) Toileting (FIM): 3 (Nursing reported mod assist for toileting) Toilet/Commode Transfer (FIM): 3 (Nursing reported moderate assistance to get on/off toilet) Education OT Patient Education: Purpose of tx/functional activities, Reviewed precautions , Rehab process Teaching Recipient: Patient Teaching Methods: Discussion Response to Teaching: Verbalize Understanding OT Fdc Goals Fdc Goals Time Frame: Oct 26, 2016 Eating (FIM): 5 Grooming(FIM): 5 Bathing(FIM): 5 Upper Body Dressing(FIM): 5 Lower Body Dressing(FIM): 5 Toileting(FIM): 5 Toilet/Commode Transfer(FIM): 5 Shower Transfer(FIM): 5 Decrease edema R hand and UE to allow her to manage basic ADLs Additional Goals: 2-Verbalize Understanding, 3-ImproveStrength/Cody 1=Demonstrate adherence to instructed precautions during ADL tasks. 2=Patient will verbalize/demonstrate understanding of assistive devices/ modifications for ADL. 3=Patient will improve strength/tolerance for activity to enable patient to perform ADL's. OT Education/Plan Problem List/Assessment Assessment: Decreased Activ Tolerance, Decreased UE Strength, Dependent Transfers, Impaired Self-Care Skills, Restricted Funct UE ROM Pt would benefit from skilled OT to increase her independence in basic self care to allow her to safely return to her home to live along. Discharge Recommendations Plan/Recommendations: Continue POC Treatment Plan/Plan of Care Treatment,Training & Education: Yes Patient would benefit from OT for education, treatment and training to promote independence in ADL's, mobility, safety and/or upper extremity function for ADL' s. Plan of Care: ADL Retraining, Functional Mobility, UE Funct Exercise/Act, OTHER (edema management R UE) Treatment Duration: Oct 26, 2016 Frequency: Daily Estimated Hrs Per Day: .5 hour per day Agreement: Yes Rehab Potential: Fair Time/GCodes Start Time: 16:00 Stop Time: 16:15 Total Time Billed (hr/min): 15 Billed Treatment Time visit, 15 minutes evaluation moderate intensity EB MAGDALENO OT Oct 12, 2016 17:12
[2016-10-12] MEDS: MIRTAZAPINE 15 MG (REMERON) TAB PO SCH (20:08)
[2016-10-13] VITALS: BP 103/56
[2016-10-13] MEDS: oxyCODONE/APAP 5/325MG (PERCOCET 5) TABLET PO PRN ×4 (04:05→18:24)
[2016-10-13 04:41] LABS: BASOPHILS % (AUTO) 0 % (0-10); EOSINOPHILS # (AUTO) 0.2 10^3/uL (0.0-0.3); EOSINOPHILS % (AUTO) 1 % (0-10); LYMPHOCYTES # (AUTO) 2.6 X 10^3 (1.0-4.0); LYMPHOCYTES % (AUTO) 22 % (12-44); MEAN CORPUSCULAR HEMOGLOBIN 28 PG (25-34); MEAN CORPUSCULAR HGB CONC 31 G/DL (32-36); MEAN CORPUSCULAR VOLUME 89 FL (80-99); MEAN PLATELET VOLUME 9.5 FL (7.4-10.4); MONOCYTES # (AUTO) 1.1 X 10^3 (0.0-1.0); MONOCYTES % (AUTO) 9 % (0-12); NEUTROPHILS % (AUTO) 67 % (42-75); PLATELET COUNT 325 10^3/uL (130-400); RED BLOOD COUNT 3.43 10^6/uL (4.35-5.85); RED CELL DISTRIBUTION WIDTH 14.9 % (10.0-14.5); WHITE BLOOD COUNT 11.9 10^3/uL (4.3-11.0)
[2016-10-13 05:01] LABS: ANION GAP 8 MMOL/L (5-14); BLOOD UREA NITROGEN 7 MG/DL (7-18); BUN/CREATININE RATIO 14; CALCIUM 8.8 MG/DL (8.5-10.1); CARBON DIOXIDE 22 MMOL/L (21-32); CHLORIDE 106 MMOL/L (98-107); CREATININE SERUM 0.49 MG/DL (0.60-1.30); GFR ESTIMATED > 60; GLUCOSE 92 MG/DL (70-105); SODIUM 136 MMOL/L (135-145)
[2016-10-13] MEDS: MULTIVIT W/MINERALS TAB (THERAGRAN M) PO SCH (06:29)
[2016-10-13] MEDS: LEVOTHYROXINE 50 MCG (LEVOTHROID) TAB PO SCH (06:29)
[2016-10-13 08:02] VITALS: BP 138/94
[2016-10-13] MEDS: FAMOTIDINE 20 MG (PEPCID) TABLET PO SCH (08:38)
[2016-10-13] MEDS: KCL 20 MEQ TAB (K-DUR) PO SCH ×2 (08:38→22:05)
--- NOTE | 2016-10-13 11:54 | Physical Therapy Evaluation ---
PT Evaluation-General Medical Diagnosis Admission Date Oct 05, 2016 at 17:05 Medical Diagnosis: metastatic lung cancer, mets to bone, recent fx R humerus Onset Date: Oct 05, 2016 Therapy Diagnosis Therapy Diagnosis: generalized weakness/debility Height/Weight Height (Feet): 5 Height (Inches): 3.00 Weight (Pounds): 107 Weight (Ounces): 2.0 Precautions Precautions/Isolations: Fall Prevention, Standard Precautions Referral Physician: Daren Reason for Referral: Evaluation/Treatment Medical History Pertinent Medical History: Breast CA S/P Mastectomy, COPD, GERD, Hypothroidism , Smoking Additional Medical History metastatic cancer to bone, multiple area Current History weakness from metastatic cancer with family unable to care for patient. Reviewed History: Yes Social History Home: Single Level Current Living Status: Alone ([facility]) PT Steps Into Home: 5 Prior/Core FIM Prior Level of Function Functional [place] Measure 0=Not Assessed/NA 4=Minimal Assistance 1=Total Assistance 5=Supervision or Setup 2=Maximal Assistance 6=Modified Luce 3=Moderate Assistance 7=Complete Luce Bed Mobility: 6 Transfers (B,C,W/C) (FIM): 6 Gait: 1 short distances due to lung cancer with decreased lung capacity PT Evaluation-Current Subjective Patient initially declined PT and became tearful stating, "I'm tired of being strong for my family. I don't know if I can continue to be." Pain Numeric Pain Scale: 5-Moderate Pain Location: Bone, Soft Tissue Location Body Site: Generalized Pain Description: Ache Pt/Family Goals increase strength and mobility Objective Patient Orientation: Normal For Age Problem Solving: Fair Attachments: Oxygen, IV ROM/Strength ROM Lower Extremities bilateral LE WNL Strenght Lower Extremities bilateral LE 3/5 grossly Integumentary/Posture Integumentary refer to nursing notes Bowel Incontinence: No Bladder Incontinence: No Posture WNL Neuromuscular (Tone, Coordination, Reflexes) diminished coordination due to inactivity,weakness, metastatic cancer with pain Sensory Vision: Functional Hearing: Functional Hand Dominance: Left Sensation Right Lower Extremit: Intact Sensation Left Lower Extremity: Intact Transfers Functional Luce Measure 0=Not Assessed/NA 4=Minimal Assistance 1=Total Assistance 5=Supervision or Setup 2=Maximal Assistance 6=Modified Luce 3=Moderate Assistance 7=Complete Luce Transfers (B, C, W/C) (FIM): 2 Scootin Rollin Supine to/from Sit: 2 Sit to/from Stand: 4 minimal assist with sit to stand with patient using single point cane for balance Gait Mode of Locomotion: Both Anticipated Mode of Locomotion: Both Gait (FIM): 1 Distance (FIM): 1=up to 49 ft Distance: 10' Gait Level of Assist: 4 Gait Persons Needed: 1 Gait Assistive Device: Cane Single Point Comments/Gait Description slightly unsteady, however, cane use improves balance Balance Sitting Static: Normal Sitting Dynamic: Normal Standing Static: Fair Standing Dynamic: Fair Assessment/Needs 65 y.o. female, will benefit from skilled PT to address functional strength and mobility to improve current LOF. Patient is limited with all gross motor skills due to extreme weakness/debility secondary to metastatic lung cancer. PT to address gross motor skills as tolerated by patient. Rehab Potential: Guarded Post Rehab Potential-Barriers: metastatic cancer PT Cad Detailer Goals Mcfp Goals PT Mcfp Goals Time Frame: Nov 10, 2016 Transfers (B,C,W/C) (FIM): 5 Gait (FIM): 1 Gait distance (FIM): 1=up to 49 ft Distance: 45' Gait Level of Assist: 4 Gait Assistive Device: Cane Single Point PT Plan Problem List Problem List: Activity Tolerance, Functional Strength, Safety, Balance, Gait, Transfer, Bed Mobility Treatment/Plan Treatment Plan: Continue Plan of Care Treatment Plan: Bed Mobility, Education, Functional Activity Cody, Functional Strength, Gait, Safety, Therapeutic Exercise, Transfers Treatment Duration: Nov 10, 2016 Frequency: 6 times per week Estimated Hrs Per Day: .25 hour per day Patient and/or Family Agrees t: Yes Safety Risks/Education Patient Education: Transfer Techniques, Safety Issues Teaching Recipient: Patient Teaching Methods: Discussion Response to Teaching: Verbalize Understanding Discharge Recommendations Therapy D/C Recommendations: Home w/ Family Support, Assisted Placement Time/GCodes Time In: 1000 Time Out: 1015 Total Billed Treatment Time: 15 Total Billed Treatment 1 visit EVLow 15 min SHILOH LIGHT PT Oct 13, 2016 11:54
--- NOTE | 2016-10-13 12:56 | Occupational Ther Daily Note ---
OT Current Status-Daily Note Subjective Pt seen in room, up in bed, agreeable to OT. No pain mentioned except with some movement R UE. Appearance Alert, cooperative Mental Status/Objective Functional [place] Measure 0=Not Assessed/NA 4=Minimal Assistance 1=Total Assistance 5=Supervision or Setup 2=Maximal Assistance 6=Modified [place] 3=Moderate Assistance 7=Complete [place] Other Treatment Edema in patient's R hand has decreased significantly. She has been supporting it on a pillow. Pt was provided with yellow foam sponge (gentle resistance) and was able to do 10 squeezes and 10 pinches, after education and physical assistance.She also was able to turn R palm up and down without pain and was encouraged to do this on her own, to decrease stiffness. Pt given yellow theraputty (gentle resistance) and was able to squeeze and pinch putty, after education and demonstration. Pt educ to keep putty in container when done because it will stick to fabric. Pt was able to slightly flex R elbow but said it was uncomfortable. R UE left in sling, propped up on pillows, all needs met. Education OT Patient Education: Exercise program, Purpose of tx/functional activities Teaching Recipient: Patient Teaching Methods: Demonstration, Discussion Response to Teaching: Verbalize Understanding, Return Demonstration, Reinforcement Needed OT Short Term Goals Short Term Goals 1=Demonstrate adherence to instructed precautions during ADL tasks. 2=Patient will verbalize/demonstrate understanding of assistive devices/ modifications for ADL. 3=Patient will improve strength/tolerance for activity to enable patient to perform ADL's. OT Snowmobile Mechanic Goals Snowmobile Mechanic Goals Time Frame: Oct 26, 2016 Eating (FIM): 5 Grooming(FIM): 5 Bathing(FIM): 5 Upper Body Dressing(FIM): 5 Lower Body Dressing(FIM): 5 Toileting(FIM): 5 Toilet/Commode Transfer(FIM): 5 Shower Transfer(FIM): 5 Decrease edema R hand and UE to allow her to manage basic ADLs Additional Goals: 2-Verbalize Understanding, 3-ImproveStrength/Cody 1=Demonstrate adherence to instructed precautions during ADL tasks. 2=Patient will verbalize/demonstrate understanding of assistive devices/ modifications for ADL. 3=Patient will improve strength/tolerance for activity to enable patient to perform ADL's. OT Education/Plan Problem List/Assessment Pt would benefit from skilled OT to increase her independence in basic self care to allow her to safely return to her home to live along. Discharge Recommendations Plan/Recommendations: Continue POC Treatment Plan/Plan of Care Patient would benefit from OT for education, treatment and training to promote independence in ADL's, mobility, safety and/or upper extremity function for ADL' s. Plan of Care: ADL Retraining, Functional Mobility, UE Funct Exercise/Act, OTHER (edema management R UE) Treatment Duration: Oct 26, 2016 Frequency: Daily Estimated Hrs Per Day: .5 hour per day Agreement: Yes Rehab Potential: Guarded Time/GCodes Start Time: 11:20 Stop Time: 11:40 Total Time Billed (hr/min): 15 Billed Treatment Time visit, 15 minutes exercise EB MAGDALENO OT Oct 13, 2016 12:56
[2016-10-13] MEDS: ENOXAPARIN 30 MG/0.3 ML (LOVENOX) SYR SC SCH (13:27)
[2016-10-13] MEDS: morphine (ROXINOL) 10 MG/0.5 ML oral conc 0.5 ML PO PRN (14:13)
--- NOTE | 2016-10-13 15:05 | Oncology Progress Note ---
Subjective Time Seen by Provider: 14:30 Subjective/Events-last exam Pain is better. Overall feeling better. More alert per nurse Data Review Labs Laboratory Tests 10/13/16 04:20 Laboratory Tests 10/11/16 04:02: White Blood Count 13.3H, Red Blood Count 3.35L, Hemoglobin 9.4L, Hematocrit 29L , Red Cell Distribution Width 14.8H, Neutrophils # (Auto) 9.8H, Monocytes # ( Auto) 1.2H, Potassium Level 3.2L, Chloride Level 108H, Creatinine 0.46L, Glucose Level 110H 10/11/16 09:30: Urine Specific [place] 1.010L, Urine Protein 1+H, Urine Leukocyte Esterase 1+H, Urine Squamous Epithelial Cells 10-25H, Urine Bacteria MODERATEH 10/12/16 05:25: White Blood Count 11.9H, Red Blood Count 3.17L, Hemoglobin 8.9L, Hematocrit 28L , Red Cell Distribution Width 14.8H, Neutrophils # (Auto) 8.3H, Monocytes # ( Auto) 1.1H, Potassium Level 3.5L, Chloride Level 108H, Creatinine 0.45L, Carbon Dioxide Level 20L, Calcium Level 8.3L 10/13/16 04:20: White Blood Count 11.9H, Red Blood Count 3.43L, Hemoglobin 9.6L, Hematocrit 31L , Red Cell Distribution Width 14.9H, Neutrophils # (Auto) 8.0H, Monocytes # ( Auto) 1.1H, Creatinine 0.49L, Mean Corpuscular Hemoglobin Concent 31L Physical Exam Vital Signs Vital Sign - Last 12Hours 10/07/16 00:00 Temp 98.0 Pulse 103 Resp 16 B/P (MAP) 134/69 Pulse Ox 94 O2 Delivery Nasal Cannula O2 Flow Rate 4.00 Capillary Refill : Less Than 3 Seconds General Appearance: No Apparent Distress, Thin HEENT: PERRL/EOMI Neck: Non Tender, Supple Respiratory: No Accessory Muscle Use, No Respiratory Distress, Crackles Gastrointestinal: Non Tender, Soft Extremity: Pedal Edema Neurologic/Psychiatric: Alert, Oriented x3 Impression & Plan Impression & Plan Assess & Plan 1. Hypercalcemia of Malignancy. Improved. Calcium normal now. Pt is alter and orientated x 3. a. Administer aggressive fluid replacement as tolerated b. Pamidronate 60mg IV given on 07/06/17; c. continue IV hydration at slower rate; 2. 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 MRI Brain -skull mets but no intraparenchymal mets b. Pathologic right humeral fracture--Status Post Pinning c. Continue radiation for right humeral lytic lesion. d. Performance Status is very poor--patient is not candidate for chemotherapy at this time; 3. History of Stage IIIC Breast Cancer diagnosed 2009 a. CA27.29 markedly elevated although lung neoplasm and bone cancer are being interpreted as arising from a lung primary carcinoma; f/u with Dr Mercedes. 4. Hypokalemia and Hypomagnesemia- Replace potassium and magnesium and monitor; 5. Anemia of Cancer and IV dilution. 6. Reactive Leukocytosis. Thrombocytosis seen in clinic has resolved with IV hydration; Status Post recent surgery and recent treatment of pneumonia 7. History of Tobaccoism--quit smoking 2 months ago 8. Former heavy alcohol intake 9. DVT prophylaxis--Lovenox being given Clinical Quality Measures DVT/VTE Risk/Contraindication: Risk Factor Score Per Nursin RFS Level Per Nursing on Admit: 4+=Very High Contraindications-Pharm: Other *list below* Other: Metastatic Lung Cancer--check MRI brain and if negative will add Lovenox; DVT/VTE Prophylaxis Comfirm.Dx Pharmacological not ordered: Cancer-Active BARBARA ZAMORA MD Oct 13, 2016 15:05
[2016-10-13] MEDS: NS W/KCL 20 MEQ/L 1,000 ML IV SCH (15:09)
[2016-10-13 15:43] VITALS: BP 98/68
[2016-10-13 20:50] VITALS: BP 142/66
[2016-10-13] MEDS: MIRTAZAPINE 15 MG (REMERON) TAB PO SCH (22:05)
[2016-10-14 00:05] VITALS: BP 118/75
[2016-10-14] MEDS: ACETAMINOPHEN 325 MG TABLET/CAPLET (TYLENOL) PO PRN (04:40)
[2016-10-14 05:30] LABS: BASOPHILS % (AUTO) 0 % (0-10); EOSINOPHILS # (AUTO) 0.1 10^3/uL (0.0-0.3); EOSINOPHILS % (AUTO) 1 % (0-10); LYMPHOCYTES # (AUTO) 2.2 X 10^3 (1.0-4.0); LYMPHOCYTES % (AUTO) 15 % (12-44); MEAN CORPUSCULAR HEMOGLOBIN 28 PG (25-34); MEAN CORPUSCULAR HGB CONC 31 G/DL (32-36); MEAN CORPUSCULAR VOLUME 90 FL (80-99); MEAN PLATELET VOLUME 9.9 FL (7.4-10.4); MONOCYTES # (AUTO) 1.4 X 10^3 (0.0-1.0); MONOCYTES % (AUTO) 10 % (0-12); NEUTROPHILS # (AUTO) 10.9 X 10^3 (1.8-7.8); NEUTROPHILS % (AUTO) 75 % (42-75); PLATELET COUNT 327 10^3/uL (130-400); RED CELL DISTRIBUTION WIDTH 14.9 % (10.0-14.5); WHITE BLOOD COUNT 14.6 10^3/uL (4.3-11.0)
[2016-10-14 05:49] LABS: ANION GAP 8 MMOL/L (5-14); BLOOD UREA NITROGEN 6 MG/DL (7-18); BUN/CREATININE RATIO 13; CALCIUM 9.1 MG/DL (8.5-10.1); CARBON DIOXIDE 24 MMOL/L (21-32); CHLORIDE 101 MMOL/L (98-107); CREATININE SERUM 0.48 MG/DL (0.60-1.30); GFR ESTIMATED > 60; GLUCOSE 87 MG/DL (70-105); POTASSIUM 4.2 MMOL/L (3.6-5.0); SODIUM 133 MMOL/L (135-145)
[2016-10-14] MEDS: LEVOTHYROXINE 50 MCG (LEVOTHROID) TAB PO SCH (06:28)
[2016-10-14] MEDS: MULTIVIT W/MINERALS TAB (THERAGRAN M) PO SCH (06:28)
[2016-10-14 08:00] VITALS: BP 124/67
[2016-10-14] MEDS: oxyCODONE/APAP 5/325MG (PERCOCET 5) TABLET PO PRN ×3 (08:49→22:32)
[2016-10-14] MEDS: KCL 20 MEQ TAB (K-DUR) PO SCH (08:49)
[2016-10-14] MEDS: FAMOTIDINE 20 MG (PEPCID) TABLET PO SCH (08:49)
--- NOTE | 2016-10-14 09:48 | Physical Therapy Progress Note ---
Therapy Progress Note Patient declined PT stating she is too tired and doesn't want to do anything. PT attempted to encourage patient to perform bed exercises, however, patient continued to decline. 1 visit ref SHILOH LIGHT PT Oct 14, 2016 09:48
[2016-10-14] MEDS: ENOXAPARIN 30 MG/0.3 ML (LOVENOX) SYR SC SCH (13:25)
--- NOTE | 2016-10-14 13:59 | Oncology Progress Note ---
Subjective Time Seen by Provider: 14:00 Subjective/Events-last exam Doing better. Up to the chair for a few hours today. Pain is under good control Data Review Labs Laboratory Tests 10/14/16 04:37 Laboratory Tests 10/12/16 05:25: White Blood Count 11.9H, Red Blood Count 3.17L, Hemoglobin 8.9L, Hematocrit 28L , Red Cell Distribution Width 14.8H, Neutrophils # (Auto) 8.3H, Monocytes # ( Auto) 1.1H, Potassium Level 3.5L, Chloride Level 108H, Carbon Dioxide Level 20L , Creatinine 0.45L, Calcium Level 8.3L 10/13/16 04:20: White Blood Count 11.9H, Red Blood Count 3.43L, Hemoglobin 9.6L, Hematocrit 31L , Red Cell Distribution Width 14.9H, Neutrophils # (Auto) 8.0H, Monocytes # ( Auto) 1.1H, Creatinine 0.49L, Mean Corpuscular Hemoglobin Concent 31L 10/14/16 04:37: White Blood Count 14.6H, Red Blood Count 3.50L, Hemoglobin 9.7L, Hematocrit 32L , Red Cell Distribution Width 14.9H, Neutrophils # (Auto) 10.9H, Monocytes # ( Auto) 1.4H, Creatinine 0.48L, Mean Corpuscular Hemoglobin Concent 31L, Sodium Level 133L, Blood Urea Nitrogen 6L Physical Exam Vital Signs Vital Sign - Last 12Hours 10/08/16 00:00 Temp 100.0 Pulse 112 Resp 20 B/P (MAP) 134/64 Pulse Ox 93 O2 Delivery Nasal Cannula O2 Flow Rate 4.00 Capillary Refill : Less Than 3 Seconds General Appearance: No Apparent Distress HEENT: PERRL/EOMI Neck: Non Tender, Supple Respiratory: No Accessory Muscle Use, No Respiratory Distress Gastrointestinal: Non Tender, Soft Extremity: Pedal Edema Neurologic/Psychiatric: Alert, Oriented x3 Impression & Plan Impression & Plan Assess & Plan 1. Hypercalcemia of Malignancy. Improved. Calcium normal now. Pt is alter and orientated x 3. a. maintain low rate IVF for now. b. Pamidronate 60mg IV given on 10/05/16; 2. 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 MRI Brain -skull mets but no intraparenchymal mets b. Pathologic right humeral fracture--Status Post Pinning, on radiation. c. Continue radiation for right humeral lytic lesion. d. Performance Status is very poor--patient is not candidate for chemotherapy at this time; 3. History of Stage IIIC Breast Cancer diagnosed 2009 a. CA27.29 markedly elevated although lung neoplasm and bone cancer are being interpreted as arising from a lung primary carcinoma; f/u with Dr Mercedes. 4. Hypokalemia and Hypomagnesemia- Replace potassium and magnesium and monitor; 5. Anemia of Cancer and IV dilution. Stable and better. 6. Reactive Leukocytosis. watch closely for now. Status Post recent surgery and recent treatment of pneumonia 7. History of Tobaccoism--quit smoking 2 months ago 8. Former heavy alcohol intake 9. DVT prophylaxis--Lovenox being given Clinical Quality Measures DVT/VTE Risk/Contraindication: Risk Factor Score Per Nursin RFS Level Per Nursing on Admit: 4+=Very High Contraindications-Pharm: Other *list below* Other: Metastatic Lung Cancer--check MRI brain and if negative will add Lovenox; DVT/VTE Prophylaxis Comfirm.Dx Pharmacological not ordered: Cancer-Active BARBARA ZAMORA MD Oct 14, 2016 13:59
[2016-10-14] MEDS: NS W/KCL 20 MEQ/L 1,000 ML IV SCH (15:17)
[2016-10-14 16:00] VITALS: BP 106/58
[2016-10-14] MEDS: MIRTAZAPINE 15 MG (REMERON) TAB PO SCH (20:47)
[2016-10-15] VITALS: BP 107/68
[2016-10-15 04:59] LABS: BASOPHILS % (AUTO) 0 % (0-10); EOSINOPHILS % (AUTO) 0 % (0-10); LYMPHOCYTES # (AUTO) 2.2 X 10^3 (1.0-4.0); LYMPHOCYTES % (AUTO) 13 % (12-44); MEAN CORPUSCULAR HEMOGLOBIN 28 PG (25-34); MEAN CORPUSCULAR HGB CONC 31 G/DL (32-36); MEAN CORPUSCULAR VOLUME 89 FL (80-99); MONOCYTES # (AUTO) 1.6 X 10^3 (0.0-1.0); MONOCYTES % (AUTO) 10 % (0-12); NEUTROPHILS # (AUTO) 12.7 X 10^3 (1.8-7.8); NEUTROPHILS % (AUTO) 77 % (42-75); PLATELET COUNT 340 10^3/uL (130-400); RED CELL DISTRIBUTION WIDTH 14.9 % (10.0-14.5); WHITE BLOOD COUNT 16.6 10^3/uL (4.3-11.0)
[2016-10-15 05:18] LABS: ANION GAP 10 MMOL/L (5-14); BLOOD UREA NITROGEN 7 MG/DL (7-18); BUN/CREATININE RATIO 14; CALCIUM 8.9 MG/DL (8.5-10.1); CARBON DIOXIDE 22 MMOL/L (21-32); CHLORIDE 102 MMOL/L (98-107); CREATININE SERUM 0.49 MG/DL (0.60-1.30); GFR ESTIMATED > 60; GLUCOSE 81 MG/DL (70-105); SODIUM 134 MMOL/L (135-145)
[2016-10-15] MEDS: LEVOTHYROXINE 50 MCG (LEVOTHROID) TAB PO SCH (05:29)
[2016-10-15] MEDS: MULTIVIT W/MINERALS TAB (THERAGRAN M) PO SCH (05:30)
[2016-10-15 05:39] LABS: BAND NEUTROPHILS 0 %; LYMPHOCYTES % (MANUAL) 13 %; NEUTROPHILS % (MANUAL) 76 %
[2016-10-15 05:40] LABS: BASOPHILS % (MANUAL) 0 %; EOSINOPHILS % (MANUAL) 1 %
[2016-10-15] MEDS: oxyCODONE/APAP 5/325MG (PERCOCET 5) TABLET PO PRN ×2 (08:32→16:48)
[2016-10-15] MEDS: FAMOTIDINE 20 MG (PEPCID) TABLET PO SCH (08:32)
[2016-10-15 08:35] VITALS: BP 124/96
[2016-10-15] MEDS: RT-LEVALBUTEROL (XOPENEX) 1.25 MG/3 ML NEB NON-FORMULARY INH SCH ×3 (09:24→21:40)
--- NOTE | 2016-10-15 09:25 | Diagnostic Imaging Report ---
INDICATION: Shortness of breath. COMPARISON: Comparison made with prior examination 10/10/2016. FINDINGS: There is now complete opacification of the left hemithorax with fluid. Right lung is grossly clear. Cardiac silhouette is obscured. IMPRESSION: There is now complete opacification of the left hemithorax with fluid and/or atelectasis. Dictated by: Dictated on workstation # [id number]
[2016-10-15] MEDS ORDERED: meTOprolol 5 MG/5 ML (LOPRESSOR) VIAL ONE (09:46)
[2016-10-15] MEDS: CEFEPIME INJECTION 2,000 MG in NS (IVPB) 50 ML IV SCH ×2 (11:19→20:50)
--- NOTE | 2016-10-15 11:39 | Consultation ---
History of Present Illness History of Present Illness Patient Consulted On(chato/time) 10/15/16 11:35 Time Seen by Provider: 10:11 History of Present Illness Surgery asked to consult regarding new onset SOB, gamaliel out lung on CXR, and decreasing O2 sat. HPI: pt is a 65 yo female, who unfortunately has metastatic Lung CA. She had new onset SOB this am and portable CXR showed completely gamaliel out lung. Pt was in the hospital a week ago and had a similar episode after Lung bx. She slowly improved, but lung not completely expanded. She was readmitted this time because of hypercalcemia. She had slowly improving, with calcium normalized; but still very weak. Pt denied chest pain. Allergies and Home Medications Allergies Coded Allergies: No Known Drug Allergies (Unverified , 10/05/09) Home Medications Levothyroxine Sodium 50 Mcg Tablet, 50 MCG PO DAILY, (Reported) Mirtazapine 15 Mg Tablet, 15 MG PO HS, (Reported) Morphine Sulfate 100 Mg/5 Ml Solution, 2 MG PO Q2H PRN for PAIN, #30 Prescribed by: JOSE DAIGLE on 10/02/16 1039 Multivitamins 1 Tab Tablet, 1 TAB PO DAILY, (Reported) Oxycodone HCl/Acetaminophen 1 Each Tablet, 1 TAB PO Q4H PRN for PAIN-MODERATE, ( Reported) Past Jnixefu-Vnopew-Ffnrhk Hx Patient Social History Alcohol Use: Denies Use Recreational Drug Use: No Smoking Status: Former Smoker Type Used: Cigarettes 2nd Hand Smoke Exposure: Yes Recent Foreign Travel: No Contact w/Someone Who Travel: No Recent Infectious Disease Expo: No Recent Hopitalizations: No Physical Abuse Screen: Yes Sexual Abuse: No Immunizations Up To Date Tetanus Booster (TDap): Unknown PED Vaccines UTD: No Seasonal Allergies Seasonal Allergies: No Surgeries HX Surgeries: Yes (BILATERAL MASTECTOMY; LEFT TOE REMOVAL) Surgeries: Appendectomy, Breast, Orthopedic Respiratory Hx Respiratory Disorders: Yes Respiratory Disorders: Pneumonia, COPD Cardiovascular Hx Cardiac Disorders: No Neurological Hx Neurological Disorders: No 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 System Hx 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 Disorders: No 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 Genitourinary Hx Genitourinary Disorders: No Gastrointestinal Hx Gastrointestinal Disorders: Yes Gastrointestinal Disorders: Gastroesophageal Reflux Musculoskeletal Hx Musculoskeletal Disorders: Yes (COMPRESSION FRACTURES) Musculoskeletal Disorders: Chronic Back Pain, Fractures Endocrine Hx Endocrine Disorders: Yes Endocrine Disorders: Hypothyroidsim HEENT HX ENT Disorders: Yes Cancer Hx Cancer: Yes (BREAST CANCER DX 2009--S/P BILATERAL MASTECTOMY, CHEMO AND RADIATION) Cancer: Breast Psychosocial Hx Psychiatric Problems: No Integumentary HX Skin/Integumentary Disorder: No Blood Transfusions Hx Blood Disorders: No Family Medical History Significant Family History: Cancer Family Medial History: FH: brain cancer G8 BROTHER G8 SISTER FH: liver cancer G8 SISTER FH: lung cancer 19 FATHER 19 MOTHER G8 BROTHER FH: skin cancer Review of Systems-General Constitutional: No chills, No diaphoresis, malaise, weakness EENTM: No blurred vision, No epistaxis, No mouth swelling Respiratory: cough, dyspnea on exertion, No hemoptysis, phlegm, short of breath Cardiovascular: No chest pain, No edema Gastrointestinal: No abdominal pain, No hematemesis, No jaundice Musculoskeletal: back pain, joint pain, joint swelling, muscle stiffness Psychiatric/Neurological: Anxiety, Depressed Physical Exam-General Problems Physical Exam Vital Signs Vital Sign - Last 12Hours 10/09/16 10/15/16 00:25 09:42 Temp 99.6 Pulse 108 Resp 20 B/P (MAP) 136/72 Pulse Ox 94 O2 Delivery Nasal Cannula O2 Flow Rate 4.00 FiO2 50 Capillary Refill : Less Than 3 Seconds General Appearance: moderate distress, thin Eyes: Bilateral Eye EOMI, Bilateral Eye PERRL HEENT: pharynx normal, No scleral icterus (R), No scleral icterus (L) Neck: full range of motion, supple, No thyromegaly Respiratory: decreased breath sounds (cannot hear anything on left), rales, rhonchi, other (dullness to percussion on left) Cardiovascular: JVD (?? 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6H, Eosinophils # (Auto) 0.0, Basophils # (Auto) 0.0, Neutrophils % (Manual) 76, Lymphocytes % (Manual) 13, Monocytes % (Manual) 10, Eosinophils % (Manual) 1, Basophils % (Manual) 0, Band Neutrophils 0, Blood Morphology Comment NORMAL, Sodium Level 134L, Potassium Level 4.0, Chloride Level 102, Carbon Dioxide Level 22, Anion Gap 10, Blood Urea Nitrogen 7, Creatinine 0.49L, Estimat Glomerular Filtration Rate > 60, BUN/Creatinine Ratio 14, Glucose Level 81, Calcium Level 8.9 10/15/16 10:05: Lactic Acid Level 1.23 Microbiology 10/10/16 Blood Culture - Preliminary, Resulted No growth 10/10/16 Gram Stain - Final, Complete 10/10/16 Sputum Culture - Final, Complete Usual/normal burke isolated. 10/11/16 Urine Culture - Final, Complete Staph, Coag Neg (Sleever) Assessment/Plan Assessment/Plan Assessment/Plan 1. SOB secondary to Hydrothorax - confirmed with US plan to do US guided thoracentesis, consent obtained from pt, risks and complications discussed not limited to pain, bleeding, infection scar, possible pneumothorax. All questions answered to her satisfaction. I also told her it may not improve her breathing. She wanted to try. This consult was necessary to assess pt (she is on blood thinners), make sure she was a good candidate and make sure she understands risks and limitations of procedure. 2. Hypercalcemia of Malignancy - normalized now 3. 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 MRI Brain -skull mets but no intraparenchymal mets b. Pathologic right humeral fracture--Status Post Pinning c. Radiation Oncology consult for right humeral lytic lesion radiation d. Performance Status is very poor--patient is not candidate for chemotherapy at this time; e. 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 4. History of Stage IIIC Breast Cancer diagnosed 2009 a. CA27.29 markedly elevated although lung neoplasm and bone cancer are being interpreted as arising from a lung primary carcinoma; 5. Hypokalemia and Hypomagnesemia- Replace potassium and magnesium and monitor ; Mild Hyponatremia - cont IV fluids 6. Anemia of Cancer - stable 7. Reactive Leukocytosis. Thrombocytosis seen in clinic has resolved with IV hydration; Status Post recent surgery and recent treatment of pneumonia 8. History of Tobaccoism--quit smoking 2 months ago 9. Former heavy alcohol intake 10. DVT prophylaxis--Lovenox being given Clinical Quality Measures DVT/VTE Risk/Contraindication: Risk Factor Score Per Nursin RFS Level Per Nursing on Admit: 4+=Very High Contraindications-Pharm: Other *list below* Other: Metastatic Lung Cancer--check MRI brain and if negative will add Lovenox; DVT/VTE Prophylaxis Comfirm.Dx Pharmacological not ordered: Cancer-Active JAKE TOTH DO Oct 15, 2016 11:39
--- NOTE | 2016-10-15 11:59 | Progress Note-Post Operative ---
Post-Operative Progess Note Surgeon (s)/Seismic Interpreter (s) Surgeon JAKE TOTH DO Seismic Interpreter: none Pre-Operative Diagnosis Hydrothorax Post-Operative Diagnosis Same Procedure & Operative Findings Date of Procedure 10/15/16 Procedure Performed/Findings US guided Thoracentesis of Left lung Anesthesia Type Local lidocaine Estimated Blood Loss Estimated blood loss (mL): scant Specimens/Packing Specimens Removed appx 1300ml serous fluids, sent to pathology JAKE TOTH DO Oct 15, 2016 11:59
[2016-10-15] MEDS ORDERED: VANCOMYCIN INJECTION 1,000 MG in NS (IVPB) 250 ML IV NR (12:00)
--- NOTE | 2016-10-15 12:49 | Diagnostic Imaging Report ---
EXAMINATION: Ultrasound of the chest. INDICATION: Left pleural effusion. COMPARISON: The chest exam performed earlier today noted complete opacification of the left hemithorax by atelectasis/infiltrate and fluid. FINDINGS: On this exam, a sizable pocket of fluid was identified and the skin over the fluid was marked. Reportedly, thoracentesis is pending. IMPRESSION: There is a sizable collection of fluid in the left lung. Thoracentesis is pending. Dictated by: Dictated on workstation # [id number]
[2016-10-15] MEDS: ENOXAPARIN 30 MG/0.3 ML (LOVENOX) SYR SC SCH (13:09)
[2016-10-15 13:17] VITALS: BP 100/64
--- NOTE | 2016-10-15 13:45 | Diagnostic Imaging Report ---
EXAMINATION: Portable erect AP chest at 1113h. INDICATION: Respiratory distress. The exam performed earlier today noted near-complete opacification of the left lung by atelectasis/infiltrate and fluid. Reportedly in the interval since the prior study the patient has undergone thoracentesis. The left lung does seem much better aerated although the left upper lung remains opacified. There is still some residual atelectasis/infiltrate and fluid in the left lung base. Also, in the interval since the prior exam a 10-15% apical pneumothorax has developed on the left. The right lung remains clear. The heart size seems to be within normal limits. The mediastinal is not widened. The osseous structures are intact. IMPRESSION: 1. The appearance of the chest has improved since the prior exam as the left lung does seem much better aerated. There is still opacification of the left apex however. 2. An apical pneumothorax has developed on the left. This could be due to the contraction of the lung as opposed to a traumatic pneumothorax. A followup chest exam would be recommended for continued evaluation. 3. These results were called to Dr. Morris Alexis. CRITICAL FINDING: Dictated by: Dictated on workstation # [id number]
[2016-10-15] MEDS ORDERED: LEVOFLOXACIN 750 MG/150 ML IV 150 ML IV SCH (14:00)
--- NOTE | 2016-10-15 14:22 | Diagnostic Imaging Report ---
EXAMINATION: Portable erect AP chest at 1:59 p.m. INDICATION: Respiratory distress. FINDINGS: The post-thoracentesis chest exam performed earlier today noted apical pneumothorax on the left. That finding is again evident and does not appear to have changed significantly. This apparent pneumothorax may be secondary to incomplete reexpansion of the lungs as opposed to an injury to the lung itself. As noted on the prior exam, there is still opacification of the left upper lobe. The density in the left lung base has increased somewhat. This may be due to reaccumulation of fluid and/or greater involvement of the left lower lobe by atelectasis/infiltrate. The right lung remains generally clear. The heart seems stable. The mediastinum is not widened. The osseous structures are unchanged. IMPRESSION: 1. There is a small persistent apical pneumothorax on the left. This does not appear to have changed significantly since the prior exam. 2. The density in the left lung base has increased. This suggests a recurrent pleural effusion or atelectasis/pneumonia. Clinical followup is recommended. 3. The overall appearance of the chest is otherwise stable. 4. These results were discussed with Dr. Morris Alexis. Dictated by: Dictated on workstation # [id number]
--- NOTE | 2016-10-15 14:25 | Consultation-Hospitalist ---
HPI History of Present Illness: HPI/Chief Complaint this is a 65-year-old white female with metastatic cancer of the lung. I was walking by in the hallway when the nurse asked me to see the patient regarding increased shortness of breath and tachycardia rate of 170. The patient was in respiratory distress and visibly short of breath. Chest x-ray showed a gamaliel out left lung. EKG showed a supraventricular tachycardia with a rate of 170. I saw Dr. Alexis and he agreed to do a thoracentesis under sonographic guidance. He obtained 1.5 L of serosanguineous fluid and the patient was greatly improved with this. She was also given Lopressor 5 mg IV with improvement in her heart rate. Source: old records Exam Limitations: clinical condition Date Seen 10/15/16 Attending Physician Irma Mercedes MD PCP Jacqueline Mendieta MD Referring Physician Sarah Date of Admission Oct 05, 2016 at 17:05 Home Medications & Allergies Home Medications Reviewed patient Home Medication Reconciliation Form Allergies Allergies Coded Allergies No Known Drug Allergies (Unverified10/05/09) Past Crcojip-Pwvcwy-Tnhwaa Hx Patient Social History Alcohol Use: Denies Use Recreational Drug Use: No Smoking Status: Former Smoker Type Used: Cigarettes 2nd Hand Smoke Exposure: Yes Physical Abuse Screen: Yes Sexual Abuse: No Recent Foreign Travel: No Contact w/other who traveled: No Recent Hopitalizations: No Recent Infectious Disease Expo: No Immunizations Up To Date Tetanus Booster (TDap): Unknown Seasonal Allergies Seasonal Allergies: No Surgeries HX Surgeries: Yes (BILATERAL MASTECTOMY; LEFT TOE REMOVAL) Surgeries: Appendectomy, Breast, Orthopedic Respiratory Hx Respiratory Disorders: Yes Respiratory Disorders: COPD, Pneumonia Cardiovascular Hx Cardiovascular Disorders: No Neurological Hx Neurological Disorders: No 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 System Hx 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 Disorders: No Genitourinary Hx Genitourinary Disorders: No Gastrointestinal Hx Gastrointestinal Disorders: Yes Gastrointestinal Disorders: Gastroesophageal Reflux Musculoskeletal Hx Musculoskeletal Disorders: Yes (COMPRESSION FRACTURES) Musculoskeletal Disorders: Chronic Back Pain, Fractures Endocrine Hx Endocrine Disorders: Yes Endocrine Disorders: Hypothyroidsim HEENT HX ENT Disorders: Yes Cancer Hx Cancer: Yes (BREAST CANCER DX 2009--S/P BILATERAL MASTECTOMY, CHEMO AND RADIATION) Cancer: Breast Psychosocial Hx Psychiatric Problems: No Integumentary HX Skin/Integumentary Disorder: No Blood Transfusions Hx Blood Disorders: No Family Medical History Significant Family History: Cancer Family Hx: FH: brain cancer G8 BROTHER G8 SISTER FH: liver cancer G8 SISTER FH: lung cancer 19 FATHER 19 MOTHER G8 BROTHER FH: skin cancer Review of Systems Constitutional: see HPI Respiratory: short of breath Cardiovascular: palpitations Physical Exam Physical Exam Vital Signs Vital Sign - Last 12Hours 10/11/16 10/15/16 00:37 09:42 Temp 98.5 Pulse 127 Resp 22 B/P (MAP) 122/65 Pulse Ox 93 O2 Delivery Nasal Cannula O2 Flow Rate 4.00 FiO2 50 Capillary Refill : Less Than 3 Seconds General Appearance: Chronically ill, Moderate Distress, Thin Neck: Limited Range of Motion Respiratory: Decreased Breath Sounds, Respiratory Distress, Rhonci Cardiovascular: Tachycardia Gastrointestinal: Soft Results Results/Procedures Lab Laboratory Tests 10/16/16 05:33 10/16/16 05:41 10/17/16 06:25 Assessment/Plan Admission Diagnosis 1. acute respiratory distress secondary to malignant pleural effusion. Dr. Alexis consult did with good immediate relief after therapeutic thoracentesis. 2. Supraventricular tachycardia most likely secondary to number 1 improved with Lopressor and therapeutic thoracentesis 3. End-stage cancer along with pathologic fracture prognosis poor Clinical Quality Measures DVT/VTE Risk/Contraindication: Risk Factor Score Per Nursin RFS Level Per Nursing on Admit: 4+=Very High Contraindications-Pharm: Other *list below* Other: Metastatic Lung Cancer--check MRI brain and if negative will add Lovenox; DVT/VTE Prophylaxis Comfirm.Dx Pharmacological not ordered: Cancer-Active CHAPARRO KWOK MD Oct 15, 2016 14:24
[2016-10-15] MEDS: NS W/KCL 20 MEQ/L 1,000 ML IV SCH (15:48)
[2016-10-15 16:00] VITALS: BP 118/70
--- NOTE | 2016-10-15 17:39 | Oncology Progress Note ---
Subjective Time Seen by Provider: 16:32 Subjective/Events-last exam WE GREATLY APPRECIATE DR POTTS'S HELP. Pt had oxygen desaturation O2 80% and spike fever 100.8 this morning. CXR showed white out left lung with pleural effusion. Dr. Potts arranged thoracentesis by Dr Barker and got 1.5 L of serous fluid. Pt is feeling better after the thoracentesis. However, she did have 15% pneumothorax after the procedure. We repeated CXR 4 hrs later. The pneumothorax was nearly resolved however, her pleural effusion is building up again. Data Review Labs Laboratory Tests 10/15/16 04:10 Laboratory Tests 10/13/16 04:20: White Blood Count 11.9H, Red Blood Count 3.43L, Hemoglobin 9.6L, Hematocrit 31L , Mean Corpuscular Hemoglobin Concent 31L, Red Cell Distribution Width 14.9H, Neutrophils # (Auto) 8.0H, Monocytes # (Auto) 1.1H, Creatinine 0.49L 10/14/16 04:37: White Blood Count 14.6H, Red Blood Count 3.50L, Hemoglobin 9.7L, Hematocrit 32L , Mean Corpuscular Hemoglobin Concent 31L, Red Cell Distribution Width 14.9H, Neutrophils # (Auto) 10.9H, Monocytes # (Auto) 1.4H, Creatinine 0.48L, Sodium Level 133L, Blood Urea Nitrogen 6L 10/15/16 04:10: White Blood Count 16.6H, Red Blood Count 3.60L, Hemoglobin 9.9L, Hematocrit 32L , Mean Corpuscular Hemoglobin Concent 31L, Red Cell Distribution Width 14.9H, Neutrophils # (Auto) 12.7H, Monocytes # (Auto) 1.6H, Creatinine 0.49L, Sodium Level 134L, Neutrophils (%) (Auto) 77H 10/15/16 10:05: Physical Exam Vital Signs Vital Sign - Last 12Hours 10/09/16 10/15/16 00:25 09:42 Temp 99.6 Pulse 108 Resp 20 B/P (MAP) 136/72 Pulse Ox 94 O2 Delivery Nasal Cannula O2 Flow Rate 4.00 FiO2 50 Capillary Refill : Less Than 3 Seconds General Appearance: No Apparent Distress, Cachetic, Thin HEENT: PERRL/EOMI, Other (lump 2cm over right forehead) Neck: Non Tender, Supple Respiratory: No Accessory Muscle Use, No Respiratory Distress, Crackles, Decreased Breath Sounds, Rhonci Cardiovascular: Regular Rate, Rhythm, Tachycardia Gastrointestinal: Non Tender, Soft Extremity: Pedal Edema, Swelling Neurologic/Psychiatric: Alert, Oriented x3 Impression & Plan Impression & Plan Assess & Plan 1. Left pleural effusion and pneumonia white out left side of the lung, O2 desaturation and tachycardia, s/p thoracentesis this morning 1.5L. Pt improved and right now hemodynamic stable on 50% 02. Effusion is most likely malignant and is re-building up rather fast. We may have to consider catheter drainage. We had sputum culture and sensitivity. In the meantime, triple antibiotics coverage, Vanco, Levaquin and Cefepime. Prognosis is very poor. We will need to get family and have a discussion of treatment plan next week. Her son is busy today but left a phone number to call. 2. 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 a. MRI Brain -skull mets but no intraparenchymal mets b. Pathologic right humeral fracture--Status Post Pinning, on radiation. We consult ortho for a possible splinter to reduce the motility of the left arm and pain. c. Continue radiation for right humeral lytic lesion. d. Performance Status is very poor--patient is not candidate for chemotherapy at this time; 3. History of Stage IIIC Breast Cancer diagnosed 2009 a. CA27.29 markedly elevated although lung neoplasm and bone cancer are being interpreted as arising from a lung primary carcinoma; f/u with Dr Mercedes. 4. Hypokalemia and Hypomagnesemia- Replace potassium and magnesium and monitor; 5. Anemia of Cancer and IV dilution. Stable and better. 6. Leukocytosis due to recurrence of pneumonia with left pleural effusion on triple antibiotics. Pt had surgery and recent treatment of pneumonia under Dr Mercedes. 7. History of Tobaccoism--quit smoking 2 months ago 8. Former heavy alcohol intake 9. DVT prophylaxis--Lovenox being given 10. Hypercalcemia of Malignancy. Improved. Calcium normal now. a. KVO IVF due to pleural effusion and edematous. b. Pamidronate 60mg IV given on 10/05/16; Clinical Quality Measures DVT/VTE Risk/Contraindication: Risk Factor Score Per Nursin RFS Level Per Nursing on Admit: 4+=Very High Contraindications-Pharm: Other *list below* Other: Metastatic Lung Cancer--check MRI brain and if negative will add Lovenox; DVT/VTE Prophylaxis Comfirm.Dx Pharmacological not ordered: Cancer-Active BARBARA ZAMORA MD Oct 15, 2016 17:39
[2016-10-15 20:00] VITALS: BP 95/60
[2016-10-15] MEDS: MIRTAZAPINE 15 MG (REMERON) TAB PO SCH (20:50)
[2016-10-15] MEDS ORDERED: VANCOMYCIN 500 MG/NS 100 ML IVPB IV SCH ×2 (22:00)
[2016-10-16] VITALS: BP 107/53
[2016-10-16] MEDS: morphine (ROXINOL) 10 MG/0.5 ML oral conc 0.5 ML PO PRN ×5 (00:36→18:08)
[2016-10-16 04:00] VITALS: BP 112/59
[2016-10-16] MEDS: LEVOTHYROXINE 50 MCG (LEVOTHROID) TAB PO SCH (06:01)
[2016-10-16] MEDS: MULTIVIT W/MINERALS TAB (THERAGRAN M) PO SCH (06:01)
[2016-10-16 06:03] LABS: BASOPHILS % (AUTO) 0 % (0-10); EOSINOPHILS % (AUTO) 0 % (0-10); LYMPHOCYTES # (AUTO) 1.6 X 10^3 (1.0-4.0); LYMPHOCYTES % (AUTO) 12 % (12-44); MEAN CORPUSCULAR HEMOGLOBIN 27 PG (25-34); MEAN CORPUSCULAR HGB CONC 31 G/DL (32-36); MEAN CORPUSCULAR VOLUME 88 FL (80-99); MEAN PLATELET VOLUME 9.7 FL (7.4-10.4); MONOCYTES # (AUTO) 1.3 X 10^3 (0.0-1.0); MONOCYTES % (AUTO) 10 % (0-12); NEUTROPHILS % (AUTO) 77 % (42-75); PLATELET COUNT 318 10^3/uL (130-400); RED BLOOD COUNT 3.07 10^6/uL (4.35-5.85); RED CELL DISTRIBUTION WIDTH 14.7 % (10.0-14.5); WHITE BLOOD COUNT 12.9 10^3/uL (4.3-11.0)
[2016-10-16 06:19] LABS: ALANINE AMINOTRANSFERASE 30 U/L (0-55); ALBUMIN 1.9 GM/DL (3.2-4.5); ANION GAP 8 MMOL/L (5-14); ASPARTATE AMINO TRANSFERASE 49 U/L (5-34); BILIRUBIN,TOTAL 0.2 MG/DL (0.1-1.0); BLOOD UREA NITROGEN 10 MG/DL (7-18); BUN/CREATININE RATIO 20; CALCIUM 8.7 MG/DL (8.5-10.1); CARBON DIOXIDE 22 MMOL/L (21-32); CHLORIDE 102 MMOL/L (98-107); CREATININE SERUM 0.51 MG/DL (0.60-1.30); GFR ESTIMATED > 60; GLUCOSE 109 MG/DL (70-105); POTASSIUM 3.9 MMOL/L (3.6-5.0); SODIUM 132 MMOL/L (135-145); TOTAL PROTEIN 4.7 GM/DL (6.4-8.2)
[2016-10-16] MEDS: RT-LEVALBUTEROL (XOPENEX) 1.25 MG/3 ML NEB NON-FORMULARY INH SCH ×2 (07:19→14:48)
[2016-10-16 08:22] VITALS: BP 108/67
[2016-10-16] MEDS: FAMOTIDINE 20 MG (PEPCID) TABLET PO SCH (08:49)
[2016-10-16] MEDS: oxyCODONE/APAP 5/325MG (PERCOCET 5) TABLET PO PRN (08:49)
[2016-10-16] MEDS: CEFEPIME INJECTION 2,000 MG in NS (IVPB) 50 ML IV SCH (08:49)
--- NOTE | 2016-10-16 09:21 | Progress Note-Hospitalist ---
Progress Note HPI/CC on Admission this is a 65-year-old white female with metastatic cancer of the lung. I was walking by in the hallway when the nurse asked me to see the patient regarding increased shortness of breath and tachycardia but 170. The patient was in in distress and visibly short of breath. Chest x-ray showed a gamaliel out left lung. EKG showed a supraventricular tachycardia with a rate of 170. I saw Dr. Alexis and he agreed to do a thoracentesis under sonographic guidance. He obtained 1.5 L of serosanguineous fluid and the patient was greatly improved with this. She was also given Lopressor 5 mg IV with improvement in her heart rate. Progress Notes/Assess & Plan Date Seen 10/16/16 Time Seen by Provider: 09:00 Diagonsis/Assessment & Plan Reviewed events from yesterday of AF w/RVR and severe respiratory distress that resulted in her consenting for thoracentesis. Now the fluid has reaccumulated. Pt is very end-stage at this point and I recommend Hospice Pt not alert and when she awakens she is very confused. Pt very thin and cachectic. AF, HR 120's Declined, semi-comatose Irr Irr, diminished BS all jalloh edema noted anasarca A/P: End stage cancer with lung involvement and h/o breast cancer AF w/RVR Large pleural effusion causing respiratory compromise End of life care Palliative care Needs Hospice NMVIOLETA YANEZ DO Oct 16, 2016 09:21
[2016-10-16] MEDS ORDERED: VANCOMYCIN 750 MG/NS 250 ML IVPB IV SCH ×2 (10:00)
--- NOTE | 2016-10-16 11:00 | Physical Therapy Progress Note ---
Therapy Progress Note PT to dismiss patient from services per Dr. Drummond, due to decline in medical status. SHILOH LIGHT PT Oct 16, 2016 11:00
--- NOTE | 2016-10-16 11:51 | OPERATIVE REPORT ---
PROCEDURE PHYSICIAN: JAKE ALEXIS DATE OF PROCEDURE: PREOPERATIVE DIAGNOSIS: Hydrothorax POSTOPERATIVE DIAGNOSIS: Hydrothorax. PROCEDURE: Ultrasound-guided thoracentesis of the left lung. SURGEON: Dr. Alexis COMMERCIAL MAINTENANCE TECHNICIAN: None. ANESTHESIA: Just local lidocaine. BLOOD LOSS: Scant. SPECIMEN: Approximately 1300 mL serous fluid sent to pathology FLUIDS: Minimal. INDICATION FOR THE PROCEDURE: The patient is a 65-year-old female with metastatic lung cancer, who has a new onset of shortness of breath and completely gamaliel out lung on chest x-ray. FINDINGS: The patient had an ultrasound performed which showed a large amount of fluid and had this fluid drain with a pigtail catheter thoracentesis. PROCEDURE NOTE: After informed consent was obtained patient was in her bed. She was sitting up leaning over her table. I already had the plc technician sara the area. She was sterilely prepped and draped in normal fashion and then local lidocaine used to infiltrate the skin right over the X and then put the sterile cover on the ultrasound and then placed the ultrasound on the back and then slowly inserted the pigtail catheter over a trocar. Went in by approximately 2 cm and suctioning back as I went in. Started getting some fluid back and at this point then pushed the pigtail catheter in and removed through the trocar. I then started suctioning off fluid, got out about 1300 and mL of fluid. Again checked with the ultrasound and now the lung was expanded up to the wall. Only had made a small stab incision with a number 11 blade before advancing the trocar. At this point then carefully removed the pigtail catheter, placed a 4 x 4 over the opening as we removed the pigtail catheter held in place and then switched and placed an occlusive Band-Aid and then ordered a portable chest x-ray. The patient tolerated the procedure well. Just got a call from the radiologist and it looks like there may be a very small pneumothorax at the apex. Lung appears the mostly reexpanded, still a large a mass in the left upper portion. We will repeat this check x-ray. The patient seemed to be breathing a little bit better after the procedure. Job ID: [id number] Dictated Date: 10/15/2016 11:59:19 Direct Entry Midwife Date: 10/16/2016 11:39:44 / judy
[2016-10-16 12:00] VITALS: BP 114/69
--- NOTE | 2016-10-16 14:46 | Occ Therapy Progress Note ---
Therapy Progress Note Discharge from OT due to decline in health status, per communication via physical therapy. EB MAGDALENO OT Oct 16, 2016 14:46
--- NOTE | 2016-10-16 15:30 | Progress Note-Hospitalist ---
Standard Progress Note Progress Notes/Assess & Plan Date Seen 10/16/16 Time Seen by Provider: 15:30 Diagnosis 1. acute respiratory distress secondary to malignant pleural effusion. Dr. Alexis consult did with good immediate relief after therapeutic thoracentesis. 2. Supraventricular tachycardia most likely secondary to number 1 improved with Lopressor and therapeutic thoracentesis 3. End-stage cancer along with pathologic fracture prognosis poor Assess & Plan/Chief Complaint The patient declared before me and her family that she did not wish any additional life extending or life-saving measures to be employed. She does not believe that there is any value being obtained in her recent endeavors. She is very much interested in comfort and pain control. Physical exam: She is alert but appears to have a limited attention span. Auscultation of lungs shows distant breath sounds. CV was regular. Abdomen was scaphoid. Extremities showed no pedal edema. There is considerable edema of the right arm which is the site of a pathologic humeral fracture. Impression: Advanced and metastatic carcinoma of the lung. 2.end of life issues. Plan: Change to comfort care/palliative care Labs Laboratory Tests 10/15/16 04:10 10/16/16 05:33 10/16/16 05:41 JOSE DAIGLE MD Oct 16, 2016 15:30
[2016-10-16 16:10] VITALS: BP 114/69
--- NOTE | 2016-10-16 16:28 | Oncology Progress Note ---
Subjective Time Seen by Provider: 13:30 Subjective/Events-last exam Patient agreed for hospice/. Dr Munguia stopped antibiotics and put patient in comfort care this afternoon. Data Review Labs Laboratory Tests 10/16/16 05:33 10/16/16 05:41 Laboratory Tests 10/14/16 04:37: White Blood Count 14.6H, Red Blood Count 3.50L, Hemoglobin 9.7L, Hematocrit 32L , Mean Corpuscular Hemoglobin Concent 31L, Red Cell Distribution Width 14.9H, Neutrophils # (Auto) 10.9H, Monocytes # (Auto) 1.4H, Sodium Level 133L, Blood Urea Nitrogen 6L, Creatinine 0.48L 10/15/16 04:10: White Blood Count 16.6H, Red Blood Count 3.60L, Hemoglobin 9.9L, Hematocrit 32L , Mean Corpuscular Hemoglobin Concent 31L, Red Cell Distribution Width 14.9H, Neutrophils # (Auto) 12.7H, Monocytes # (Auto) 1.6H, Sodium Level 134L, Creatinine 0.49L, Neutrophils (%) (Auto) 77H 10/15/16 10:05: 10/16/16 05:33: White Blood Count 12.9H, Red Blood Count 3.07L, Hemoglobin 8.3L, Hematocrit 27L , Mean Corpuscular Hemoglobin Concent 31L, Red Cell Distribution Width 14.7H, Neutrophils # (Auto) 10.0H, Monocytes # (Auto) 1.3H, Neutrophils (%) (Auto) 77H 10/16/16 05:41: Sodium Level 132L, Creatinine 0.51L, Glucose Level 109H, Aspartate Amino Transf (AST/SGOT) 49H, Total Protein 4.7L, Albumin 1.9L Physical Exam Vital Signs Vital Sign - Last 12Hours 10/10/16 10/15/16 00:00 09:42 Temp 100.4 Pulse 122 Resp 32 B/P (MAP) 148/81 Pulse Ox 93 O2 Delivery Nasal Cannula O2 Flow Rate 4.00 FiO2 50 Capillary Refill : Less Than 3 Seconds General Appearance: No Apparent Distress HEENT: PERRL/EOMI Respiratory: No Accessory Muscle Use, No Respiratory Distress, Crackles, Rhonci Gastrointestinal: Non Tender, Soft Extremity: Pedal Edema, Swelling Neurologic/Psychiatric: Alert Impression & Plan Impression & Plan Assess & Plan 1. Left pleural effusion and pneumonia fever and white out left side of the lung , O2 desaturation and tachycardia, s/p thoracentesis 1.5L yesterday. Dr Munguia stopped antibiotics today and put her on comfort care. 2. 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 Pt agreed for hospice. a. MRI Brain -skull mets but no intraparenchymal mets b. Pathologic right humeral fracture--Status Post Pinning and radiation. c. Finished radiation for right humeral lytic lesion. d. Performance Status is very poor--patient is not candidate for chemotherapy at this time. 3. History of Stage IIIC Breast Cancer diagnosed 2009 a. CA27.29 markedly elevated although lung neoplasm and bone cancer are being interpreted as arising from a lung primary carcinoma. 4. Hypokalemia and Hypomagnesemia. 5. Anemia of Cancer and IV dilution. Stable and better. 6. Leukocytosis due to recurrence of pneumonia with left pleural effusion. Her WBC is down from 16k to 12k today since antibiotics yesterday. 7. History of Tobaccoism--quit smoking 2 months ago 8. Former heavy alcohol intake 9. DVT prophylaxis--Lovenox being given 10. Hypercalcemia of Malignancy. Improved. Calcium normal now. a. KVO IVF due to pleural effusion and edematous. b. Pamidronate 60mg IV given on 10/05/16; Clinical Quality Measures DVT/VTE Risk/Contraindication: Risk Factor Score Per Nursin RFS Level Per Nursing on Admit: 4+=Very High Contraindications-Pharm: Other *list below* Other: Metastatic Lung Cancer--check MRI brain and if negative will add Lovenox; DVT/VTE Prophylaxis Comfirm.Dx Pharmacological not ordered: Cancer-Active BARBARA ZAMORA MD Oct 16, 2016 16:28
[2016-10-17 06:44] LABS: BASOPHILS % (AUTO) 0 % (0-10); EOSINOPHILS # (AUTO) 0.1 10^3/uL (0.0-0.3); EOSINOPHILS % (AUTO) 1 % (0-10); LYMPHOCYTES # (AUTO) 2.3 X 10^3 (1.0-4.0); LYMPHOCYTES % (AUTO) 18 % (12-44); MEAN CORPUSCULAR HEMOGLOBIN 28 PG (25-34); MEAN CORPUSCULAR HGB CONC 31 G/DL (32-36); MEAN CORPUSCULAR VOLUME 90 FL (80-99); MEAN PLATELET VOLUME 9.4 FL (7.4-10.4); MONOCYTES # (AUTO) 1.2 X 10^3 (0.0-1.0); MONOCYTES % (AUTO) 9 % (0-12); NEUTROPHILS # (AUTO) 9.5 X 10^3 (1.8-7.8); NEUTROPHILS % (AUTO) 73 % (42-75); PLATELET COUNT 305 10^3/uL (130-400); RED BLOOD COUNT 2.97 10^6/uL (4.35-5.85); RED CELL DISTRIBUTION WIDTH 14.8 % (10.0-14.5); WHITE BLOOD COUNT 13.1 10^3/uL (4.3-11.0)
[2016-10-17 07:05] LABS: ANION GAP 8 MMOL/L (5-14); BLOOD UREA NITROGEN 7 MG/DL (7-18); BUN/CREATININE RATIO 16; CALCIUM 9.1 MG/DL (8.5-10.1); CARBON DIOXIDE 24 MMOL/L (21-32); CHLORIDE 102 MMOL/L (98-107); CREATININE SERUM 0.45 MG/DL (0.60-1.30); GFR ESTIMATED > 60; GLUCOSE 83 MG/DL (70-105); POTASSIUM 3.4 MMOL/L (3.6-5.0); SODIUM 134 MMOL/L (135-145)
[2016-10-17] MEDS ORDERED: TROUGH ORDER-PHARMACY XX NR (09:00)
[2016-10-17] MEDS ORDERED: morphine INJ 4 MG/ML 1 ML (VIAL/SYRINGE) IV PRN (09:00)
[2016-10-17] MEDS ORDERED: RT-ALBUTEROL/IPRATROPIUM 3 ML (DUONEB) VIAL INH PRN (09:00)
[2016-10-17] MEDS ORDERED: ACETAMINOPHEN 650 MG SUPP (TYLENOL) PR PRN (09:00)
[2016-10-17] MEDS ORDERED: ARTIFICIAL TEARS OINT (LACRI-LUBE) 3.5 GM TUBE OU PRN (09:00)
[2016-10-17] MEDS ORDERED: SALIVA STIMULANT MOUTH SPRAY (BIOTENE) 1.5 OZ MM PRN (09:00)
[2016-10-17] MEDS ORDERED: LORazepam INJ 2 MG/ML (ATIVAN) VIAL IVP PRN (09:00)
[2016-10-17] MEDS ORDERED: ONDANSETRON 4 MG/2 ML (SDV) Z0FRAN IVP PRN (09:00)
[2016-10-17] MEDS ORDERED: BISACODYL 10 MG SUPP (DULCOLAX) PR PRN (09:00)
[2016-10-17] MEDS ORDERED: ARTIFICAL TEARS 0.4 ML UNIT DOSE (REFRESH PLUS) OU PRN (09:00)
[2016-10-17] MEDS ORDERED: GLYCOPYRROLATE 0.2 MG/ML (ROBINUL) 2 ML VIAL IV PRN (09:00)
[2016-10-17] MEDS: oxyCODONE/APAP 5/325MG (PERCOCET 5) TABLET PO PRN (11:26)
[2016-10-17] MEDS: MILK OF MAGNESIA 400 MG/5 ML 30 ML UDC PO PRN (15:14)
--- NOTE | 2016-10-17 17:32 | Progress Note (SOAP) ---
Subjective Date Seen by Provider: Oct 17, 2016 Time Seen by Provider: 12:20 Subjective/Events-last exam Frail 66-year-old lady with known metastatic lung carcinoma and history of locally advanced breast cancer who was admitted with hypercalcemia and developed worsening shortness of breath associated with tachycardia and fever were to 100.8. Therapeutic thoracentesis of 1.5 L removed on 10/15/16. Patient subsequently decided that she does not want any more aggressive interventions and has elected to sign up with [facility] and wants only comfort care at present. Family needs tonight to move furniture out of the space for her hospital bed will be located. Discharge is anticipated for tomorrow morning. Objective Exam Vital Signs Date Time Temp Pulse Resp B/P (MAP) Pulse Ox O2 Delivery O2 Flow Rate FiO2 10/17/16 10:32 76 Room Air 10/17/16 08:00 Room Air 10/16/16 19:25 Room Air 10/16/16 19:00 133 I & O 10/17/16 07:00 Intake Total 1670 ml Balance 1670 ml Capillary Refill : Less Than 3 Seconds General Appearance: No Apparent Distress, Chronically ill Neck: Full Range of Motion Respiratory: Crackles, Decreased Breath Sounds Cardiovascular: Tachycardia Gastrointestinal: normal bowel sounds, non tender, soft Results Lab Laboratory Tests 10/17/16 06:25: White Blood Count 13.1H, Red Blood Count 2.97L, Hemoglobin 8.3L, Hematocrit 27L , Mean Corpuscular Volume 90, Mean Corpuscular Hemoglobin 28, Mean Corpuscular Hemoglobin Concent 31L, Red Cell Distribution Width 14.8H, Platelet Count 305, Mean Platelet Volume 9.4, Neutrophils (%) (Auto) 73, Lymphocytes (%) (Auto) 18, Monocytes (%) (Auto) 9, Eosinophils (%) (Auto) 1, Basophils (%) (Auto) 0, Neutrophils # (Auto) 9.5H, Lymphocytes # (Auto) 2.3, Monocytes # (Auto) 1.2H, Eosinophils # (Auto) 0.1, Basophils # (Auto) 0.0, Sodium Level 134L, Potassium Level 3.4L, Chloride Level 102, Carbon Dioxide Level 24, Anion Gap 8, Blood Urea Nitrogen 7, Creatinine 0.45L, Estimat Glomerular Filtration Rate > 60, BUN/ Creatinine Ratio 16, Glucose Level 83, Calcium Level 9.1 Microbiology 10/15/16 Blood Culture - Preliminary, Resulted No growth 10/15/16 Gram Stain - Final, Complete 10/15/16 Sputum Culture - Final, Complete Usual/normal burke isolated. 10/11/16 Urine Culture - Final, Complete Staph, Coag Neg ([place] Hand) Assessment/Plan Assessment/Plan Assess & Plan/Chief Complaint 1. Hypercalcemia of Malignancy a. Status Post IV hydration and Pamidronate 60mg IV given on 10/05/16; c. Corrected Calcium is currently 10.78 today; 2. 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 MRI Brain -skull mets but no intraparenchymal mets b. Pathologic right humeral fracture--Status Post Pinning c. Radiation Oncology consult for right humeral lytic lesion radiation d. Status post therapeutic thoracentesis 10/15/16 e. Performance Status is very poor--patient is not candidate for chemotherapy ; f. Family meeting held with [employer] present. Family initially had requesting snf placement but now will take her home on hospice. 3. History of Stage IIIC Breast Cancer diagnosed 2009 a. CA27.29 markedly elevated although lung neoplasm and bone cancer are being interpreted as arising from a lung primary carcinoma; 4. Hypokalemia and Hypomagnesemia- 5. Anemia of Cancer 6. Reactive Leukocytosis. Thrombocytosis seen in clinic has resolved with IV hydration; Status Post recent surgery and recent treatment of pneumonia 7. History of Tobaccoism--quit smoking 2 months ago 8. Former heavy alcohol intake 9. DVT prophylaxis--Lovenox being given; Clinical Quality Measures DVT/VTE Risk/Contraindication: Risk Factor Score Per Nursin RFS Level Per Nursing on Admit: 4+=Very High Contraindications-Pharm: Other *list below* Other: Metastatic Lung Cancer--check MRI brain and if negative will add Lovenox; DVT/VTE Prophylaxis Comfirm.Dx Pharmacological not ordered: Cancer-Active HANDY ALCARAZ MD Oct 17, 2016 17:32
[2016-10-17] MEDS: ACETAMINOPHEN 325 MG TABLET/CAPLET (TYLENOL) PO PRN (20:21)
[2016-10-18] MEDS: ACETAMINOPHEN 325 MG TABLET/CAPLET (TYLENOL) PO PRN (08:25)
[2016-10-18] MEDS: oxyCODONE/APAP 5/325MG (PERCOCET 5) TABLET PO PRN ×2 (08:29→16:00)
[2016-10-18] MEDS: MILK OF MAGNESIA 400 MG/5 ML 30 ML UDC PO PRN (09:07)
== END 2016-10-18 17:45 | disposition hospice, home (50) | DRG 640 ==
LOC: 4TH 17:05
PROVIDERS: ADMIT Internal Medicine Hematology & Oncology; ATTEND Internal Medicine Hematology & Oncology
PROC: 0W9B3ZZ Drainage of Left Pleural Cavity, Percutaneous Approach (ICD-10-PCS; principal; 2016-10-15)
DX: E83.52 Hypercalcemia (principal); C79.51 Secondary malignant neoplasm of bone; C34.92 Malignant neoplasm of unspecified part of left bronchus or lung; J94.8 Other specified pleural conditions; J91.0 Malignant pleural effusion; J18.9 Pneumonia, unspecified organism; M84.521A Pathological fracture in neoplastic disease, right humerus, initial encounter for fracture; Z66 Do not resuscitate; Z51.5 Encounter for palliative care; I47.1 Supraventricular tachycardia; D63.0 Anemia in neoplastic disease; J44.9 Chronic obstructive pulmonary disease, unspecified; K21.9 Gastro-esophageal reflux disease without esophagitis; E83.42 Hypomagnesemia; E87.6 Hypokalemia; E03.9 Hypothyroidism, unspecified; Z85.3 Personal history of malignant neoplasm of breast; Z90.13 Acquired absence of bilateral breasts and nipples; Z87.891 Personal history of nicotine dependence; M84.58XD Pathological fracture in neoplastic disease, other specified site, subsequent encounter for fracture with routine healing
CPT/HCPCS: 36415; 70553; 71010; 71020; 76604; 77280; 77300; 77402; 77470; 80048; 80053; 81000; 83605; 83735; 85007; 85025; 85027; 86850; 86900; 86901; 86920; 87040; 87070; 87088; 87205; 88112; 88305; 93005; 94640; 94664; 94760